=== PATIENT | male | born 1945 | race Caucasian/White ===

== ENCOUNTER 2021-07-31 17:03 | Inpatient (IN) ==
--- NOTE | 2021-07-31 17:41 | XRay Report ---
XR chest 1V portable HISTORY: Atypical Chest Pain COMPARISON: Chest 01/01/2011. FINDINGS: No pneumothorax. No pleural effusions. The heart is unenlarged. There is a left-sided pacem carola/defibrillator. There are poststernotomy changes. Mild interstitial thickening within the mid to lower lung zones. The upper lung zones are clear. IMPRESSION: Cardiomegaly with mild interstitial thickening within the mid to lower lung zones. This favors develo ping congestive change. ACT 112: Negative or not required by law. Electronically signed by: Narciso Denton M.D. 07/31/2021 5:40 PM
[2021-07-31 17:51] LABS: INR 1.1 (0.9-1.1); Partial Thromboplastin Time 27.3 Seconds (21.0-31.0); Prothrombin Time 11.4 Seconds (9.0-12.0)
[2021-07-31] MEDS ORDERED: SODIUM CHLORIDE 0.9% 1000ML 1,000 ML IV STA ×2 (17:54→18:59)
[2021-07-31] MEDS ORDERED: dilTIAZem HCl 5 MG/ML 5 ML VIAL IV STA (17:54)
[2021-07-31] MEDS ORDERED: STAT IV Infusion **Titration per Protocol STA (17:54)
[2021-07-31] MEDS ORDERED: SODIUM CHLORIDE 0.9% 1000ML 500 ML IV ONE ×3 (17:54→22:02)
--- NOTE | 2021-07-31 17:58 | Emergency Department Note ---
Impression & Plan Atrial fibrillation with rapid ventricular response, CHF (congestive heart failure), DAMON (acute kidney injury), Hyperkalemia, Elevated troponin ED Provider Note INFORMANT: Patient ED PROVIDER(S): Reggie Concepcion MD CHIEF COMPLAINT: Chest pain PLAN: Disposition: Admitted Condition: Guarded Outpatient prescription management: none Referral: None MEDICAL DECISION MAKING: Patient presented complaining of chest pain. His ECG showed atrial fibrillation with rapid response. He had a nonspecific block present. 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 The patient had blood work obtained. He was given a saline bolus as his blood pressure was marginal and he was given Cardizem by a small bolus and drip. Patient was found to have a mildly elevated troponin. The patient's labs also revealed dehydration and DAMON. He had hyperkalemia. This was confirmed on repeat. The patient did have control of the heart rate and his chest pain resolved with this. I believe his elevated troponin was from rate related ischemia. The patient was ordered calcium, insulin, dextrose, and bicarb to help with the hyperkalemia. I did consult with nephrology, Dr. sanchez. She felt if we can get his potassium below 6 that he could stay here. Additional fluids were ordered. Patient was given an additional dose of insulin and dextrose. She recommended Kayexalate. Repeat potassium revealed improvement down to 5.9. Additional therapy will continue in the hospital. Consultation was made with Dr. Dwayne Thayer of the [facility] service. Patient was evaluated in the ER for further management. Triage Nursing notes reviewed and agree them. Vital Signs: reviewed and remarkable for significant tachycardia Differential diagnosis: ACS, Electrolyte abnormality, cardiac dysrhythmia, thyroid dysfunction, pulmonary embolism, infection, gastrointestinal, as well as other pathologies. Diagnostics interpreted by me: ECG:twelve-lead ECG reveals atrial fibrillation with rapid ventricular response at 138 bpm. There is nonspecific intraventricular conduction block present. When compared to ECG of 2011 the atrial fibrillation is new. Cardiac Monitoring: Cardiac monitoring ordered by me: The patient was placed on continuous cardiac monitoring and observed. It revealed atrial fibrillation at 140 bpm. Imaging studies: Chest x-ray shows some mild cardiomegaly and congestive change. I refer you to the EMR for further details. HPI: The patient is a 76 year old male who presents to the Emergency Room with complaints of chest pain. This started three weeks ago and is intermittent . The patient also notes the following associated symptoms, SOB. The patient has taken no medications for relieving factors. Current pain is rated as 7/10. Hx of CAD and atrial fibrillation. Pt denies LOC, headache, fevers, chills, diaphoresis, visual changes, neck pain, nausea, vomiting, abdominal pain, back pain, melena, hematochezia, urinary symptoms, numbness, weakness, lymphadenopathy, rash, or other complaints. ROS: See above HPI for pertinent positives & negatives. A total of 10 systems reviewed and were otherwise negative. PAST MEDICAL HISTORY:See Below , CAD, eye cancer, leukemia PAST SURGICAL HISTORY:See Below, FAMILY HISTORY:See Below SOCIAL HISTORY:See Below, retired HOME MEDICATIONS:See Below ALLERGIES:See Below VITALS:See Below PHYSICAL EXAMINATION: GENERAL: Awake, alert, uncomfortable-appearing, in no distress HENT: Normocephalic, atraumatic. Oropharynx unremarkable. EYES: Pale conjunctiva. Sclera non-icteric. NECK: Inspection normal. Non-tender. Supple. No nuchal rigidity. FROM. No masses. RESPIRATORY: Clear to auscultation. No wheezes. No rales. Normal respiratory effort. CARDIAC: Tachycardic rate. Irregular rhythm. No murmurs. No rubs. Extremities warm and well perfused. Pulses equal. No JVD. GI: Soft, non-distended. No tenderness to palpation. No rebound or guarding. No masses. RECTAL: Deferred. MUSCULOSKELETAL: Atraumatic. Chest examination reveals no tenderness. The back is symmetrical on inspection without obvious abnormality. There is no CVA tenderness to palpation. No joint edema. LOWER EXTREMITIES: Calves are equal size bilaterally and non-tender. No edema. No discoloration. NEURO: Normal sensorium. No sensory or motor deficits noted. SKIN: No rash or jaundice noted. CRITICAL CARE: I have personally spent greater than 50 minutes of critical care time in the direct management of this patient. This includes bedside care, interpretation of diagnostic studies, and testing, discussion with consultants, patient, and family members, and other required patient management activities. These minutes are in excess of all separately billable procedures. Reggie Concepcion MD Past Med/Surg History Medical History (Updated 08/01/21 @ 00:51 by Ida Griggs DO) CAD (coronary artery disease) CHF (congestive heart failure) Depression Surgical History History of coronary artery bypass graft Social History Smoking Status: Former smoker Tobacco Type: Cigarettes Preferred Language: Ugand[place] Feels Safe at Home: Yes Allergies Allergies Allergy/AdvReac Type Severity Reaction Status Date / Time No Known Allergies Allergy Verified 07/31/21 18:10 Home Meds Home Medications Medication Instructions Recorded Confirmed atorvastatin 40 mg tablet 40 mg PO HS 07/31/21 07/31/21 escitalopram oxalate 20 mg tablet 20 mg PO DAILY 07/31/21 07/31/21 (Lexapro) furosemide 40 mg tablet 40 mg PO DAILY 07/31/21 07/31/21 insulin degludec 100 unit/mL (3 8 unit SUBCUT HS 07/31/21 07/31/21 mL) subcutaneous pen (Tresiba FlexTouch U-100 insulin) levothyroxine 75 mcg tablet 75 mcg PO DAILY 07/31/21 07/31/21 (Euthyrox) lisinopril 5 mg tablet 5 mg PO DAILY 07/31/21 07/31/21 mirtazapine 15 mg tablet 15 mg PO HS 07/31/21 07/31/21 ropinirole 1 mg tablet 1 mg PO HS 07/31/21 07/31/21 spironolactone 25 mg tablet 25 mg PO DAILY 07/31/21 07/31/21 tramadol 50 mg tablet 50 mg PO DIRECTED PRN 07/31/21 07/31/21 vismodegib 150 mg capsule 150 mg PO DAILY 07/31/21 07/31/21 (Erivedge) Results & Data (ED) Vital Signs Vital Signs - 24 hr 07/31/21 17:07 07/31/21 17:33 07/31/21 18:01 Temperature 36.2 C L Temperature Source Temporal Artery Scan Pulse Rate 66 144 H Pulse Rate [Apical] 143 H Pulse Rate from SpO2 Sensor 142 H Respiratory Rate 16 18 23 Respiratory Pattern Regular Blood Pressure 93/66 L Blood Pressure [Left Arm] 106/65 Blood Pressure Mean 75 Blood Pressure Mean [Left Arm] 78 Blood Pressure Position [Left Arm] Semi-fowlers Pulse Oximetry 96 96 95 Oxygen Delivery Method Room Air Room Air Sepsis Recent Fever Within 48 Hours No Sepsis New/Unexplained Change in Mental Status No Sepsis Action Taken by Nursing No Action Required 07/31/21 18:02 07/31/21 18:10 07/31/21 18:20 Temperature Temperature Source Pulse Rate 107 H 93 H Pulse Rate [Apical] 140 H Pulse Rate from SpO2 Sensor 107 H 92 H Respiratory Rate 18 24 17 Respiratory Pattern Blood Pressure Blood Pressure [Left Arm] 101/62 Blood Pressure Mean Blood Pressure Mean [Left Arm] 75 Blood Pressure Position [Left Arm] Pulse Oximetry 100 97 99 Oxygen Delivery Method Room Air Sepsis Recent Fever Within 48 Hours Sepsis New/Unexplained Change in Mental Status Sepsis Action Taken by Nursing 07/31/21 18:22 07/31/21 18:30 07/31/21 18:40 Temperature Temperature Source Pulse Rate 107 H 87 Pulse Rate [Apical] 90 Pulse Rate from SpO2 Sensor 101 H 103 H Respiratory Rate 18 21 22 Respiratory Pattern Blood Pressure Blood Pressure [Left Arm] Blood Pressure Mean Blood Pressure Mean [Left Arm] Blood Pressure Position [Left Arm] Pulse Oximetry 98 98 97 Oxygen Delivery Method Room Air Room Air Sepsis Recent Fever Within 48 Hours Sepsis New/Unexplained Change in Mental Status Sepsis Action Taken by Nursing 07/31/21 18:50 07/31/21 19:00 07/31/21 19:10 Temperature Temperature Source Pulse Rate 90 97 H 111 H Pulse Rate [Apical] Pulse Rate from SpO2 Sensor 99 H 110 H 96 H Respiratory Rate 20 18 17 Respiratory Pattern Blood Pressure Blood Pressure [Left Arm] Blood Pressure Mean Blood Pressure Mean [Left Arm] Blood Pressure Position [Left Arm] Pulse Oximetry 97 99 98 Oxygen Delivery Method Sepsis Recent Fever Within 48 Hours Sepsis New/Unexplained Change in Mental Status Sepsis Action Taken by Nursing 07/31/21 19:20 07/31/21 19:30 07/31/21 19:40 Temperature Temperature Source Pulse Rate 116 H 122 H 96 H Pulse Rate [Apical] Pulse Rate from SpO2 Sensor 126 H 148 H Respiratory Rate 22 20 20 Respiratory Pattern Blood Pressure 104/74 Blood Pressure [Left Arm] Blood Pressure Mean 84 Blood Pressure Mean [Left Arm] Blood Pressure Position [Left Arm] Pulse Oximetry 98 98 99 Oxygen Delivery Method Sepsis Recent Fever Within 48 Hours Sepsis New/Unexplained Change in Mental Status Sepsis Action Taken by Nursing 07/31/21 19:50 07/31/21 20:00 07/31/21 20:10 Temperature Temperature Source Pulse Rate 101 H 98 H 98 H Pulse Rate [Apical] Pulse Rate from SpO2 Sensor 97 H 106 H 103 H Respiratory Rate 20 18 20 Respiratory Pattern Blood Pressure Blood Pressure [Left Arm] Blood Pressure Mean Blood Pressure Mean [Left Arm] Blood Pressure Position [Left Arm] Pulse Oximetry 100 99 99 Oxygen Delivery Method Room Air Sepsis Recent Fever Within 48 Hours Sepsis New/Unexplained Change in Mental Status Sepsis Action Taken by Nursing 07/31/21 20:20 07/31/21 20:30 07/31/21 20:40 Temperature Temperature Source Pulse Rate 101 H 106 H 107 H Pulse Rate [Apical] Pulse Rate from SpO2 Sensor 107 H 210 H 108 H Respiratory Rate 21 20 18 Respiratory Pattern Blood Pressure 108/66 Blood Pressure [Left Arm] Blood Pressure Mean 80 Blood Pressure Mean [Left Arm] Blood Pressure Position [Left Arm] Pulse Oximetry 98 99 91 Oxygen Delivery Method Room Air Sepsis Recent Fever Within 48 Hours Sepsis New/Unexplained Change in Mental Status Sepsis Action Taken by Nursing 07/31/21 20:50 07/31/21 21:00 07/31/21 21:10 Temperature Temperature Source Pulse Rate 103 H 90 82 Pulse Rate [Apical] Pulse Rate from SpO2 Sensor Respiratory Rate 18 22 20 Respiratory Pattern Blood Pressure 119/63 Blood Pressure [Left Arm] Blood Pressure Mean 81 Blood Pressure Mean [Left Arm] Blood Pressure Position [Left Arm] Pulse Oximetry Oxygen Delivery Method Sepsis Recent Fever Within 48 Hours Sepsis New/Unexplained Change in Mental Status Sepsis Action Taken by Nursing 07/31/21 21:20 Temperature Temperature Source Pulse Rate 80 Pulse Rate [Apical] Pulse Rate from SpO2 Sensor Respiratory Rate 17 Respiratory Pattern Blood Pressure Blood Pressure [Left Arm] Blood Pressure Mean Blood Pressure Mean [Left Arm] Blood Pressure Position [Left Arm] Pulse Oximetry Oxygen Delivery Method Sepsis Recent Fever Within 48 Hours Sepsis New/Unexplained Change in Mental Status Sepsis Action Taken by Nursing Laboratory Data Result diagrams: 07/31/21 17:21 07/31/21 19:42 Lab Results 07/31/21 07/31/21 07/31/21 Range/Units 17:21 17:21 17:21 WBC 3.09 L (4.8-10.8) K/uL RBC 2.94 L (4.7-6.1) M/uL Hgb 8.9 L (14.0-18.0) g/dL Hct 28.4 L (42-52) % MCV 96.6 (80-100) fL MCH 30.3 (25-34) pg MCHC 31.3 L (32-36) g/dL RDW Std Deviation 74.4 H (36.4-46.3) fL RDW Coeff of Donn 21.5 H (11.5-14.5) % Plt Count 48 L (130-400) K/uL Immature Gran % (Auto) 1.6 % Neut % (Auto) 58.9 % Lymph % (Auto) 19.1 % Jackson % (Auto) 20.4 % Eos % (Auto) 0.0 % Baso % (Auto) 0.0 % Neut # (Auto) 1.82 (1.4-6.5) K/uL Lymph # (Auto) 0.59 L (1.2-3.4) K/uL Jackson # (Auto) 0.63 H (0.11-0.59) K/uL Eos # (Auto) 0.00 (0-0.5) K/uL Baso # (Auto) 0.00 (0-0.2) K/uL Immature Gran # (Auto) 0.05 H (0.00-0.02) K/uL Platelet Estimate Decreased L (Normal) Poikilocytosis Present Anisocytosis Present Ovalocytes 1+ PT 11.4 (9.0-12.0) Seconds INR 1.1 (0.9-1.1) APTT 27.3 (21.0-31.0) Seconds PTT Ratio 1.0 Sodium 131 L (136-145) mmol/L Potassium 6.9 H* (3.5-5.1) mmol/L Chloride 106 (98-107) mmol/L Carbon Dioxide 19 L (21-32) mmol/L Anion Gap 7.0 (3-11) BUN 65 H (7-18) mg/dl Creatinine 2.05 H (0.6-1.4) mg/dl Est Cr Clr Drug Dosing 29.5 ml/min Est GFR ( Amer) 35.7 ml/min Est GFR (Non-Af Amer) 30.8 ml/min BUN/Creatinine Ratio 31.5 H (10-20) Glucose 153 H (70-99) mg/dl POC Glucose (70-99) mg/dl Calcium 10.2 H (8.5-10.1) mg/dl Total Bilirubin 0.5 (0.2-1) mg/dl AST 35 (15-37) U/L ALT 23 (12-78) U/L Alkaline Phosphatase 98 (45-117) U/L Troponin I 0.106 H* (0-0.045) ng/ml Total Protein 8.8 H (6.4-8.2) gm/dl Albumin 3.9 (3.4-5.0) gm/dl Globulin 4.9 H (2.5-4.0) gm/dl Albumin/Globulin Ratio 0.8 L (0.9-2) COVID-19 Eval Order SARS-CoV-2 (PCR) (Negative) 07/31/21 07/31/21 07/31/21 Range/Units 18:08 19:42 20:34 WBC (4.8-10.8) K/uL RBC (4.7-6.1) M/uL Hgb (14.0-18.0) g/dL Hct (42-52) % MCV (80-100) fL MCH (25-34) pg MCHC (32-36) g/dL RDW Std Deviation (36.4-46.3) fL RDW Coeff of Donn (11.5-14.5) % Plt Count (130-400) K/uL Immature Gran % (Auto) % Neut % (Auto) % Lymph % (Auto) % Jackson % (Auto) % Eos % (Auto) % Baso % (Auto) % Neut # (Auto) (1.4-6.5) K/uL Lymph # (Auto) (1.2-3.4) K/uL Jackson # (Auto) (0.11-0.59) K/uL Eos # (Auto) (0-0.5) K/uL Baso # (Auto) (0-0.2) K/uL Immature Gran # (Auto) (0.00-0.02) K/uL Platelet Estimate (Normal) Poikilocytosis Anisocytosis Ovalocytes PT (9.0-12.0) Seconds INR (0.9-1.1) APTT (21.0-31.0) Seconds PTT Ratio Sodium (136-145) mmol/L Potassium 6.7 H* 5.9 H (3.5-5.1) mmol/L Chloride (98-107) mmol/L Carbon Dioxide (21-32) mmol/L Anion Gap (3-11) BUN (7-18) mg/dl Creatinine (0.6-1.4) mg/dl Est Cr Clr Drug Dosing ml/min Est GFR ( Amer) ml/min Est GFR (Non-Af Amer) ml/min BUN/Creatinine Ratio (10-20) Glucose (70-99) mg/dl POC Glucose 92 (70-99) mg/dl Calcium (8.5-10.1) mg/dl Total Bilirubin (0.2-1) mg/dl AST (15-37) U/L ALT (12-78) U/L Alkaline Phosphatase (45-117) U/L Troponin I (0-0.045) ng/ml Total Protein (6.4-8.2) gm/dl Albumin (3.4-5.0) gm/dl Globulin (2.5-4.0) gm/dl Albumin/Globulin Ratio (0.9-2) COVID-19 Eval Order SARS-CoV-2 (PCR) (Negative) 07/31/21 07/31/21 Range/Units 20:35 20:35 WBC (4.8-10.8) K/uL RBC (4.7-6.1) M/uL Hgb (14.0-18.0) g/dL Hct (42-52) % MCV (80-100) fL MCH (25-34) pg MCHC (32-36) g/dL RDW Std Deviation (36.4-46.3) fL RDW Coeff of Donn (11.5-14.5) % Plt Count (130-400) K/uL Immature Gran % (Auto) % Neut % (Auto) % Lymph % (Auto) % Jackson % (Auto) % Eos % (Auto) % Baso % (Auto) % Neut # (Auto) (1.4-6.5) K/uL Lymph # (Auto) (1.2-3.4) K/uL Jackson # (Auto) (0.11-0.59) K/uL Eos # (Auto) (0-0.5) K/uL Baso # (Auto) (0-0.2) K/uL Immature Gran # (Auto) (0.00-0.02) K/uL Platelet Estimate (Normal) Poikilocytosis Anisocytosis Ovalocytes PT (9.0-12.0) Seconds INR (0.9-1.1) APTT (21.0-31.0) Seconds PTT Ratio Sodium (136-145) mmol/L Potassium (3.5-5.1) mmol/L Chloride (98-107) mmol/L Carbon Dioxide (21-32) mmol/L Anion Gap (3-11) BUN (7-18) mg/dl Creatinine (0.6-1.4) mg/dl Est Cr Clr Drug Dosing ml/min Est GFR ( Amer) ml/min Est GFR (Non-Af Amer) ml/min BUN/Creatinine Ratio (10-20) Glucose (70-99) mg/dl POC Glucose (70-99) mg/dl Calcium (8.5-10.1) mg/dl Total Bilirubin (0.2-1) mg/dl AST (15-37) U/L ALT (12-78) U/L Alkaline Phosphatase (45-117) U/L Troponin I (0-0.045) ng/ml Total Protein (6.4-8.2) gm/dl Albumin (3.4-5.0) gm/dl Globulin (2.5-4.0) gm/dl Albumin/Globulin Ratio (0.9-2) COVID-19 Eval Order Covid19 at [facility] SARS-CoV-2 (PCR) NEGATIVE (Negative) Administered Medications Sodium Chloride (Nss 1000ml) 1,000 mls @ 125 mls/hr IV .Q8H STA Stop: 08/01/21 01:53 Last Admin: 07/31/21 19:47 Dose: 125 mls/hr Documented by: [id number] Discontinued Medications Calcium Gluconate (Calcium Gluconate 10% 10 Ml Vial) 1,000 mg IV NOW STA Stop: 07/31/21 18:44 Last Admin: 07/31/21 19:48 Dose: 1,000 mg Documented by: [id number] Calcium Gluconate (Calcium Gluconate 1000 Mg/60 Ml Nss) Confirm Administered D ose 1,000 mg IV .STK-MED ONE Stop: 07/31/21 19:36 Last Admin: 07/31/21 19:48 Dose: 1,000 mg Documented by: [id number] Dextrose (Dextrose 50% 50 Ml Syringe) 50 ml IV NOW ONE Stop: 07/31/21 18:44 Last Admin: 07/31/21 19:04 Dose: 50 ml Documented by: [id number] Dextrose (Dextrose 50% 50 Ml Syringe) 50 ml IV NOW ONE Stop: 07/31/21 20:20 Last Admin: 07/31/21 20:44 Dose: 50 ml Documented by: [id number] Diltiazem HCl (Diltiazem Hcl 5 Mg/Ml 5 Ml Vial) 10 mg IV NOW STA Stop: 07/31/21 17:55 Last Admin: 07/31/21 18:01 Dose: 10 mg Documented by: [id number] Cosigned by: [id number] Sodium Chloride (Nss 1000ml) 500 mls @ 999 mls/hr IV .Q31M ONE Stop: 07/31/21 18:24 Last Infusion: 07/31/21 18:32 Dose: 0 mls/hr Documented by: [id number] Admin: 07/31/21 18:01 Dose: 999 mls/hr Documented by: [id number] Sodium Chloride (Nss 1000ml) 500 mls @ 999 mls/hr IV .Q31M ONE Stop: 07/31/21 19:29 Last Infusion: 07/31/21 19:31 Dose: 0 mls/hr Documented by: [id number] Admin: 07/31/21 19:00 Dose: 999 mls/hr Documented by: [id number] Sodium Chloride (Nss 1000ml) 1,000 mls @ 125 mls/hr IV .Q8H STA Stop: 08/01/21 02:58 Last Admin: 07/31/21 19:51 Dose: Not Given Documented by: [id number] Insulin Human Regular (Novolin-R Insulin Per Unit Charge) 10 units IV NOW STA Stop: 07/31/21 18:44 Last Admin: 07/31/21 19:05 Dose: 10 units Documented by: [id number] Cosigned by: [id number] Insulin Human Regular (Novolin-R Insulin Per Unit Charge) 10 units IV NOW STA Stop: 07/31/21 20:20 Last Admin: 07/31/21 20:38 Dose: 10 units Documented by: [id number] Cosigned by: [id number] Sodium Bicarbonate (Sodium Bicarb 8.4% Inj 50 Meq/50 Ml Syr) 50 meq IV NOW STA Stop: 07/31/21 18:44 Last Admin: 07/31/21 19:05 Dose: 50 meq Documented by: [id number] Sodium Polystyrene Sulfonate (Sodium Polystyrene Sulfonate 15g/60ml Susp) 30 gm PO NOW STA Stop: 07/31/21 19:01 Last Admin: 07/31/21 19:49 Dose: 30 gm Documented by: [id number] Imaging Data Radiologist's Impression: Chest X-Ray 07/31/21 17:09 XR chest 1V portable HISTORY: Atypical Chest Pain COMPARISON: Chest 01/01/2011. FINDINGS: No pneumothorax. No pleural effusions. The heart is unenlarged. There is a left-sided pacemaker/defibrillator. There are poststernotomy changes. Mild interstitial thickening within the mid to lower lung zones. The upper lung zones are clear. IMPRESSION: Cardiomegaly with mild interstitial thickening within the mid to lower lung zones. This favors developing congestive change. ACT 112: Negative or not required by law. Electronically signed by: Narciso Denton M.D. 07/31/2021 5:40 PM Discharge Plan Visit Data Chief Complaint: Chest Pain Stated Complaint: CHEST PAIN ED Provider: Reggie Concepcion Discharge Problem: Atrial fibrillation with rapid ventricular response, CHF (congestive heart jasmin lure), DAMON (acute kidney injury), Hyperkalemia, Elevated troponin Patient Disposition: Admitted As Inpatient Discharge Instructions Interventions: ED Discharge Assessment Last Done: 08/01/21 00:41
[2021-07-31] MEDS ORDERED: dilTIAZem HCL 125 MG in DEXTROSE 5% 100 ML IV SCH (18:00)
[2021-07-31 18:01] LABS: Albumin Level 3.9 gm/dl (3.4-5.0); BUN Creatinine Ratio 31.5 (10-20); Calcium 10.2 mg/dl (8.5-10.1); Creatinine Clr Calc Pharmacy 29.5 ml/min; Est GFR (African American) 35.7 ml/min; Est GFR (Non-African American) 30.8 ml/min; Potassium 6.9 mmol/L (3.5-5.1)
[2021-07-31 18:05] LABS: Albumin Globulin Ratio 0.8 (0.9-2); Bilirubin,Total 0.5 mg/dl (0.2-1); Globulin 4.9 gm/dl (2.5-4.0); Total Protein 8.8 gm/dl (6.4-8.2); Troponin I 0.106 ng/ml (0-0.045)
[2021-07-31 18:17] LABS: Anisocytosis Present; Hematocrit (blood only) 28.4 % (42-52); Hemoglobin 8.9 g/dL (14.0-18.0); Immature Granulocytes # (auto) 0.05 K/uL (0.00-0.02); Immature Granulocytes % (auto) 1.6 %; Lymphocytes # (auto) 0.59 K/uL (1.2-3.4); Lymphocytes % (auto) 19.1 %; Mean Corpuscular Hemoglobin 30.3 pg (25-34); Mean Corpuscular Hgb Conc 31.3 g/dL (32-36); Mean Corpuscular Volume 96.6 fL (80-100); Monocytes # (auto) 0.63 K/uL (0.11-0.59); Monocytes % (auto) 20.4 %; Neutrophils # (auto) 1.82 K/uL (1.4-6.5); Neutrophils % (auto) 58.9 %; Ovalocytes 1+; Platelet Count 48 K/uL (130-400); Platelet Estimate Decreased (Normal); Poikilocytosis Present; RDW Coefficient of Variation 21.5 % (11.5-14.5); RDW Standard Deviation 74.4 fL (36.4-46.3); Red Blood Count 2.94 M/uL (4.7-6.1); White Blood Count 3.09 K/uL (4.8-10.8)
[2021-07-31] MEDS ORDERED: CALCIUM GLUCONATE 10% 10 ML VIAL IV STA (18:43)
[2021-07-31] MEDS ORDERED: DEXTROSE 50% 50 ML SYRINGE IV ONE ×2 (18:43→20:19)
[2021-07-31] MEDS ORDERED: NovoLIN-R INSULIN PER UNIT CHARGE IV STA ×2 (18:43→20:19)
[2021-07-31] MEDS ORDERED: SODIUM BICARB 8.4% INJ 50 MEQ/50 ML SYR IV STA (18:43)
[2021-07-31] MEDS ORDERED: SODIUM POLYSTYRENE SULFONATE 15G/60ML SUSP PO STA (19:00)
[2021-07-31] MEDS ORDERED: CALCIUM GLUCONATE 1000 MG/60 ML NSS IV ONE (19:35)
--- NOTE | 2021-07-31 21:27 | History & Physical Report ---
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 AFib with RVR, CAD, CHF, chest pain: History of CAD s/p CABG in 2019 per daughter; no records available as patient seeks most of his care through [facility]. Reported to have had AICD placed following CABG, presumed to be secondary to low EF. No Echo on file. Presented with chest pain and in AFib with RVR (HR 140s). Received diltiazem push and gtt with improvement in HR to 80s and complete resolution of chest pain. Patient is not on anticoagulation; has a CHADSVasc score of 5. Unclear history surrounding AFib, will need to obtain records from [facility] and PCP office. Regardless, not started on Heparin gtt due to anemia and severe thrombocytopenia. Elevated troponin to 0.106, no baseline to compare. Will trend troponins. Possible this elevated is due to significantly elevated HR, however cannot rule out ACS. Patient is currently asymptomatic. Echo ordered for AM. Hgb A1c and lipid panel pending. Continue atorvastatin 40mg daily for now. Not on DAPT therapy despite Hx CABG. Will not start now in the setting of anemia and thrombocytopenia. Holding diuretics in the setting of dehydration/DAMON/Hyperkalemia. Low sodium diet ordered. Cardiology consulted given complex cardiac history and presenting complaints. DAMON: Presented with creatinine 2.05; no baseline to compare. BUN/Cr ratio >20; prerenal etiology. NSS total in ER of 2.5L; will defer further fluid for now 2/2 suspected low EF. Holding home diuretics for now pending BMP in the AM as well as Echo. Hold lisinopril as patient's BP is on low side and has prerenal DAMON. Repeat BMP in AM. Hyperkalemia: Presenting K of 6.9; decreased to 5.9 with insulin 10u with D50 amp, bicarb amp, and calcium gluconate 1g x1. Also received dose of Kayexalate at the recommendation of Nephrology. Veltassa ordered as well as repeat insulin 10u with D50 amp; defer further management to day team/Nephrology. Frequent BMP to evaluate for improvement. Pancytopenia: Presented with Hgb 8.9, plts 48, WBC count of 3.09. Unclear etiology. Does have a history of BCC of the eyelid however no other known malignancy. No source of bleeding identified. Hemoccult ordered. Peripheral smear ordered to evaluate for myelodysplastic syndromes. Daily CBC. DM2: Hold Tresiba in favor of basal/bolus insulin. A1c pending. DM2 diet. COPD: History of per patient, not on home O2 therapy. No complaints of SOB this admission. Goal O2 saturation >92% in the setting of possible ACS. Albuterol inhaler as needed for SOB/wheezing. May benefit from daily inhalers; defer to PCP based on PFTs, symptom control. Depression: Patient's in the beginning of June and he has been talking about "wanting to visit and be with her". Continue home escitalopram and Remeron. Hypothyroidism: Continue levothyroxine. Code Status: DNR/DNI, this was confirmed with daughter. FEN: Heart Healthy, DM2, low sodium diet. 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 He reports that this morning shortly after waking he started having left sided chest pain that radiated into the left arm without associated worsening SOB, denied nausea or vomiting, lightheadedness, diaphoresis. He has a history of CABG per daughter by Dr. Cullen in 2019. He has a history of AFib but is not on rate control therapy nor anticoagulation. Per daughter his a few weeks ago, and he has "given up" since then. She reports that he has been more depressed and eating and drinking less. In the ER patient was found to be tachycardic in AFib with RVR. He was started on diltiazem gtt with fairly rapid improvement in his HR to 80s. He also notable had elevated creatinine and elevated potassium to 6.9; interventions including Kayexalate, sodium bicarb, calcium gluconate, insulin with D50, and NSS were instituted with an improvement in K to 5.9. Hospitalist service was consulted for admission. Allergies Allergy/AdvReac Type Severity Reaction Status Date / Time No Known Allergies Allergy Verified 07/31/21 18:10 Home Medications Medication Instructions Recorded Confirmed Type atorvastatin 40 mg tablet 40 mg PO HS 07/31/21 07/31/21 History escitalopram oxalate 20 mg tablet 20 mg PO DAILY 07/31/21 07/31/21 History (Lexapro) furosemide 40 mg tablet 40 mg PO DAILY 07/31/21 07/31/21 History insulin degludec 100 unit/mL (3 8 unit SUBCUT HS 07/31/21 07/31/21 History mL) subcutaneous pen (Tresiba FlexTouch U-100 insulin) levothyroxine 75 mcg tablet 75 mcg PO DAILY 07/31/21 07/31/21 History (Euthyrox) lisinopril 5 mg tablet 5 mg PO DAILY 07/31/21 07/31/21 History mirtazapine 15 mg tablet 15 mg PO HS 07/31/21 07/31/21 History ropinirole 1 mg tablet 1 mg PO HS 07/31/21 07/31/21 History spironolactone 25 mg tablet 25 mg PO DAILY 07/31/21 07/31/21 History tramadol 50 mg tablet 50 mg PO DIRECTED PRN 07/31/21 07/31/21 History vismodegib 150 mg capsule 150 mg PO DAILY 07/31/21 07/31/21 History (Erivedge) Past Med/Surg History Medical History CAD (coronary artery disease) CHF (congestive heart failure) COPD (chronic obstructive pulmonary disease) Depression Leukemia Surgical History History of coronary artery bypass graft Social History Smoking Status: Former smoker Tobacco Type: Cigarettes Cigarettes Per Day: former smoker, 3 packs per day; Smoking End Date: 15 years ago; Second Hand Exposure: Yes; Do You Dip or Chew Tobacco: No; Hx Alcohol Use: No Hx Substance Use: No Preferred Language: Yakut Communication Ability: Effective Lusterer Required: No Beliefs That Will Affect Care: None Current Living Situation: Family Current Living Situation Comment: with daughter Other Information That Helps Us Care for You: No Feels Safe at Home: Yes Safety Concerns: Feels Safe At This Time Assistive Devices: None Review of Systems Review of Systems: All systems reviewed & are unremarkable except as noted in HPI & below Constitutional: no fever, no chills and no malaise Respiratory: no cough and no dyspnea Cardiovascular: + chest pain; no palpitations and no edema Gastrointestinal: no abdominal pain, no constipation and no diarrhea/loose stools Physical Exam Constitutional: WD/WN, vitals as above Eyes: PERRL, conjunctivae normal, anicteric sclerae ENMT: external ear and nose normal, oropharynx normal Neck: normal visual inspection Respiratory: normal respiratory effort, lungs clear to auscultation Cardiovascular: Rate/Rhythm: + irregularly irregular Heart Sounds: no murmur Extremities: no edema Gastrointestinal (Abdomen): normal bowel sounds, soft, nontender, no hepatosplenomegaly Skin: no rashes, warm and dry Neurologic: AAOx3, normal speech. Bilateral UE, LE, and face without sensory or motor deficits. Psychiatric: A+Ox3, euthymic affect Results & Data Results & Data ([facility]) Vital Signs (Past 12 Hours) Vital Signs Temp Pulse Pulse Resp BP BP Pulse Ox 07/31/21 19:50 101 H 20 100 07/31/21 19:40 96 H 20 99 07/31/21 19:30 122 H 20 104/74 98 07/31/21 19:20 116 H 22 98 07/31/21 19:10 111 H 17 98 07/31/21 19:00 97 H 18 99 07/31/21 18:50 90 20 97 07/31/21 18:40 87 22 97 07/31/21 18:30 107 H 21 98 07/31/21 18:22 90 18 98 07/31/21 18:20 93 H 17 99 07/31/21 18:10 107 H 24 97 07/31/21 18:02 140 H 18 101/62 100 07/31/21 18:01 144 H 23 95 07/31/21 17:33 143 H 18 106/65 96 07/31/21 17:07 36.2 C L 66 16 93/66 L 96 Code Status & VTE Plan VTE Prophylaxis Plan VTE Prophylaxis will be ordered: Yes Supervising Physician Co-Signing Physician Notes Attending addendum: I have physically seen this patient, have supervised the medical residents activities, and agree with the H&P unless as otherwise noted. Assessment and Plan: Atrial fibrillation with RVR/elevated troponin/chest pain/CAD/hypertension/CHF- The patient will be admitted to telemetry for serial cardiac enzymes, serial EKG's, cardiac rhythm monitoring and a 2-D echocardiogram with Dopplers. Troponin 0.106 upon admission likely secondary to increased heart rate Hold antiplatelet therapy due to anemia and thrombocytopenia Consult cardiology Coordinate care with [facility] Renal insufficiency- Creatinine 2.05, with unknown baseline received 2.5 L NSS in the ER. No further IV fluids Hold home diuretics Recheck laboratories in a.m. Hyperkalemia- Potassium 6.9 upon admission, with decreased to 5.9 after D50/regular insulin 10 units IV protocol, labile bicarb and calcium gluconate 1 g IV for in the ED Would not give any further Kayexalate No ectopy noted on mending carrier while in the ED Give Veltassa 8.4 mg tonight Repeat laboratories in a.m. Remaining orders and notations as noted Resident Activity Tracking Resident Involvement: Resident Care Provided Care Provided: Adult Hospital Medicine
[2021-08-01] MEDS ORDERED: GLUCAGON FOR INJ 1 MG VIAL SQ PRN (00:49)
[2021-08-01] MEDS ORDERED: DEXTROSE 50% 50 ML SYRINGE IV PRN (00:49)
[2021-08-01] MEDS ORDERED: GLUCOSE 10 TABS/TUBE PO PRN (00:49)
[2021-08-01] MEDS ORDERED: ACETAMINOPHEN 325 MG TAB PO PRN (00:49)
[2021-08-01] MEDS ORDERED: GLUCOSE 40% GEL 15 GM TUBE PO PRN (00:49)
[2021-08-01] MEDS ORDERED: POLYETHYLENE (MIRALAX) 17 GM PACK PO PRN (00:49)
[2021-08-01] MEDS ORDERED: CARBOHYDRATES FOR HYPOGLYCEMIA PO PRN (00:49)
[2021-08-01 01:37] LABS: BUN Creatinine Ratio 36.1 (10-20); Calcium 8.7 mg/dl (8.5-10.1); Creatinine Clr Calc Pharmacy 36.4 ml/min; Est GFR (Non-African American) 39.7 ml/min; Potassium 5.9 mmol/L (3.5-5.1)
[2021-08-01] MEDS ORDERED: ALBUTEROL HFA 8 GM INHALER INH PRN (01:38)
[2021-08-01] MEDS ORDERED: DEXTROSE 50% 50 ML SYRINGE IV STA (01:45)
[2021-08-01 01:46] LABS: Troponin I 1.17 ng/ml (0-0.045)
[2021-08-01] MEDS ORDERED: INSULIN HUMAN REGULAR PER UNIT 10 UNITS in SYRINGE 9.9 ML IV SCH (02:00)
[2021-08-01] MEDS ORDERED: SODIUM CHLORIDE 0.9% 1000ML 1,000 ML IV SCH (02:15)
[2021-08-01] MEDS: PATIROMER CALCIUM SORBITEX 8.4 GM PACK PO SCH (02:19)
[2021-08-01] MEDS: traMADol HCL 50 MG TABLET PO PRN ×2 (04:44→11:53)
[2021-08-01] MEDS ORDERED: DICLOFENAC SOD 1% GEL 100 GM TUBE EXT PRN (05:53)
[2021-08-01] MEDS: LEVOTHYROXINE SODIUM 75 MCG TABLET PO SCH (06:15)
[2021-08-01] MEDS ORDERED: HEPARIN SODIUM/DEXTROSE 25,000 UNITS/500 ML BAG IV SCH (06:45)
[2021-08-01] MEDS ORDERED: ASPIRIN CHEW 324 MG PO STA (06:48)
--- NOTE | 2021-08-01 06:59 | Hospitalist Progress Note ---
Date of Service August 01, 2021 Assessment & Plan (1) NSTEMI (non-ST elevated myocardial infarction): Plan: Adi Louis is a 76 yo male with PMHx significant for CAD (s/p CABG in 04/2020), leukemia (currently on chemotherapy, per patient), HFrEF (on home Lasix, s/p AICD), atrial fibrillation (not on AC or BB), COPD (no home O2, unknown GOLD class), and basal cell carcinoma of the left eye (on Erivedge) who was admitted to [facility] on 07/31 for for chest pain; found to have NSTEMI, a-fib with RVR and hyperkalemia. Type II NSTEMI Exertional chest pain for >several hours. EKG with ST depressions and T-wave inversions in inferolateral leads. Troponin peaked at 1.34 this AM. Suspect Type II NSTEMI secondary to a-fib with RVR. - Cardiology consulted - suspects Type II NSTEMI due to a-fib with RVR, stopped Heparin gtt - gave Aspirin 324mg x1 and started Heparin gtt without bolus which was stopped this AM, as stated above - no further Aspirin given thrombocytopenia - continue home Atorvastatin 40mg PO QHS - hold home Lisinopril (DAMON) - s/p Dilt gtt for a-fib RVR (see below) and is NSR 80s; transitioned to Amio as stated below CAD; HFrEF; S/p AICD. Is s/p CABG ~1 year ago, with HFrEF. TTE this morning with EF 25%, severe LV dysfunction, LV akinesis/hypokinesis, Type III diastolic dysfunction, RVSP 50- 55mmHg. - hold Lasix and Spironolactone for now as patient presented hypovolemic - Cholesterol 72, LDL 36, HDL 20 - continue Atorvastatin as stated above but lipid profile will need to be repeat in 2-3 months, with decreased dose recommended if LDL persistently <40 Atrial Fibrillation with RVR, RVR resolved Past history of a-fib per patient's daughter, although not on home BB or AC. Presented in a-fib RVR but this has resolved, and patient back in NSR, s/p Diltiazem gtt. Suspect this led to elevated Troponin - CHADS-VASc score of 5 - Cardiology on board as stated above - transitioned to Amiodarone 200mg PO BID for now - defer BB for now as stated above - likely requires long-term anti-coagulation; will defer to Cardiology - also will try to include patient's Oncologist in this discussion (Dr. Eb Hernandez in [place]; [phone]) Acute Normocytic Anemia; Pancytopenia; Leukemia Hgb 8.9 --> 7.2 today with no signs of active bleeding. Plts 48 --> 42. WBC <3 with severe neutropenia. Suspect acute worsening of anemia is due to hemodi lution. 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 - will transfuse 1 unit leukored/irrad pRBCs now, with another unit on hold - repeat H/H following transfusion - hold on platelet transfusion for now given no active bleed and count >10,000 - patient follows with Dr. Hernandez in [place]; reportedly gets "shots" of chemotherapy every few weeks but unsure what the treatment is - also gets periodic "blood transfusions" for "low counts" but unsure when last one was - would be ideal to get records to confirm type of leukemia and chemotherapy - peripheral smear pending - trend CBC daily - ordered neutropenic precautions Hyperkalemia; DAMON, resolving Suspect acute hyperkalemia in setting of DAMON. Suspect root cause is pre-renal injury due to poor forward flow in setting of a-fib RVR. K improved from 6.9 --> 5.4 s/p bicarb, D5/insulin, kayexalate. Cr improved from 2.05 --> 1.47 s/p several IVF boluses and control of HR. - K 5.4 --> 6.2 after 1 unit pRBCs - will give NSS 500cc @125cc/hr and re-check BMP tonight - give cautious 250cc IVF NSS bolus for K>6.0, and/or SBP <90 - Nephro consulted - appreciate recs - started on Patiromer - will continue for now - will hold on mIVFs for now given NSTEMI and unknown CHF history - held Lasix/Spironolactone as stated above - follow BMP daily LLE Cramping Patient reports several days of this. No h/o DVT. No recent extended travel time. Negative Mariella sign on exam. - will more definitively r/o with LLE venous duplex - pending T2DM History of such, with unknown last A1c. - continue SSI + basal bolus insulin while hospitalized - A1c pending COPD History of such. 120 pack year smoking history (quit12 years ago). Unknown GOLD class or previous PFTs but not on home O2 therapy. - Albuterol inhaler PRN SOB/wheezing. - Would likely benefit from daily inhalers; defer to PCP based on PFTs and symptom control Depression Patient's in the beginning of June and he has been talking about "wanting to visit and be with her". - continue home escitalopram and Remeron. Hypothyroidism Continue levothyroxine. Basal Cell Carcinoma - patient will use his own Erivedge Code Status: DNR/DNI FEN: Heart-healthy/DM2/low-sodium diet DVT ppx: SCDs, hold chemoppx for now given profound thrombocytopenia Dispo: PCU with tele (2) Atrial fibrillation with rapid ventricular response: (3) Acute on chronic anemia: (4) CAD (coronary artery disease): (5) Depression: (6) CHF (congestive heart failure): (7) DAMON (acute kidney injury): (8) Hyperkalemia: (9) Leukemia: (10) COPD (chronic obstructive pulmonary disease): Admission and Anticipated Discharge Date Admission Date: July 31, 2021 Supervising Physician Co-Signing Physician Notes I personally examined the patient and verified all wyman points of history and exam, discussed case, and agree with decision making with Dr Briseno Feeling better. No palpitations or heart racing. No chest pain or shortness of breath. Case discussed with cardiology. Consultants input appreciated. Vitals noted, in general he is awake and alert pleasant no distress fatigued appearing. HEENT normocephalic atraumatic mucous membranes moist. Breathing unlabored no accessory muscle use good effort. Skin shows no rashes no pallor or icterus. Neuro without focal deficits. A. fib with RVR precipitating type II DE due to demand ischemia, complicated by pancytopenia from leukemia, and DAMON that is improving. Continue current care, improving. Hopefully home soon. Continue to manage hyperkalemia Subjective Chest pain resolved yesterday evening. Weaned off of Dilt gtt for several hours with NSR 80s. This morning patient reports palpitations/tachycardia for the last several days, which preceded his bout of chest pain yesterday. He is unsure if he was ever diagnosed with an abnormal heart rhythm/a-fib. Confirms that the chest pain was left-sided, radiated down left arm, with associated diaphoresis, started with exertion, and lasted throughout the day yesterday. Patient also reports h/o "leukemia"; cannot say which type but does follow with Dr. Eb Hernandez in [place], [place], and gets "shots" as treatment every couple weeks, with occasional blood transfusions when his "levels are low". Reports 3ppd smoking history x40 years; quit 12 years ago. Denies alcohol use or other drug use. Denies current chest pain/palpitations. Denies fever/chills, headache, syncope/near-syncope, N/V, abdominal pain, rash. Review of Systems Review of Systems: All systems reviewed & are unremarkable except as noted in HPI & below Physical Exam Physical Exam: General: A&Ox3. NAD. Cooperative. HEENT: Atraumatic, normocephalic. Pulm: CTAB A&P. -wheezes, -rales, -rhonchi. Symmetrical chest rise. No increase work of breathing. No respiratory distress. Cardiac: RRR, -mrg. Radial pulses intact and symmetrical. No JVD. No LE edema. Chest: no pain with palpation of chest wall Abdominal: soft, non-tender, non-distended, BS x 4 Skin: warm, dry, no rash Results & Data Results & Data ([facility]) Vital Signs (Past 12 Hours) Vital Signs Temp Pulse Pulse Resp BP BP Pulse Ox 08/01/21 05:18 88 117/61 98 08/01/21 03:21 86 105/56 L 08/01/21 02:50 36.6 C 91 H 97 H 20 123/66 100 08/01/21 00:42 87 101/50 L 94 07/31/21 23:00 93 H 20 07/31/21 22:50 84 18 07/31/21 22:40 82 18 98 07/31/21 22:30 91 H 21 124/65 97 07/31/21 22:20 79 18 98 07/31/21 22:10 83 20 98 07/31/21 22:00 83 21 108/56 L 07/31/21 21:50 85 22 98 07/31/21 21:40 80 23 07/31/21 21:30 80 19 104/52 L 07/31/21 21:20 80 17 07/31/21 21:10 82 20 07/31/21 21:00 90 22 119/63 07/31/21 20:50 103 H 18 07/31/21 20:40 107 H 18 91 07/31/21 20:30 106 H 20 108/66 99 07/31/21 20:20 101 H 21 98 07/31/21 20:10 98 H 20 99 07/31/21 20:00 98 H 18 99 07/31/21 19:50 101 H 20 100 07/31/21 19:40 96 H 20 99 07/31/21 19:30 122 H 20 104/74 98 07/31/21 19:20 116 H 22 98 07/31/21 19:10 111 H 17 98 07/31/21 19:00 97 H 18 99 Resident Activity Tracking Resident Involvement: Resident Care Provided Care Provided: Adult [facility] Medicine
[2021-08-01] MEDS: INSULIN ASPART 100 UNITS/ML 3 ML PEN SC SCH ×4 (08:00→22:03)
[2021-08-01] MEDS: ESCITALOPRAM OXALATE 20 MG TAB PO SCH (08:17)
[2021-08-01 08:23] LABS: Hematocrit (blood only) 23.2 % (42-52); Hemoglobin 7.2 g/dL (14.0-18.0); Mean Corpuscular Hemoglobin 30.4 pg (25-34); Mean Corpuscular Volume 97.9 fL (80-100); RDW Coefficient of Variation 21.7 % (11.5-14.5); Red Blood Count 2.37 M/uL (4.7-6.1); White Blood Count 2.21 K/uL (4.8-10.8)
[2021-08-01 08:29] LABS: Platelet Count 43 K/uL (130-400)
[2021-08-01] MEDS ORDERED: SODIUM CHLORIDE 0.9% 250 ML IV PRN (08:29)
[2021-08-01 08:32] LABS: BUN Creatinine Ratio 34.6 (10-20); Calcium 9.1 mg/dl (8.5-10.1); Creatinine Clr Calc Pharmacy 39.7 ml/min; Est GFR (African American) 53.3 ml/min; Potassium 5.4 mmol/L (3.5-5.1)
[2021-08-01 09:00] LABS: Anisocytosis Present; Echinocytes 1+; Immature Granulocytes # (auto) 0.09 K/uL (0.00-0.02); Immature Granulocytes % (auto) 4.1 %; Lymphocytes # (auto) 0.69 K/uL (1.2-3.4); Lymphocytes % (auto) 31.2 %; Monocytes # (auto) 0.62 K/uL (0.11-0.59); Monocytes % (auto) 28.1 %; Neutrophils # (auto) 0.81 K/uL (1.4-6.5); Neutrophils % (auto) 36.6 %; Ovalocytes 1+; Platelet Estimate Decreased (Normal)
[2021-08-01] MEDS ORDERED: INSULIN GLARGINE SOLOSTAR 100 UNITS/ML 3 ML PEN SC SCH (09:00)
[2021-08-01] MEDS: Heparin IV Adult Wt-Based Low-Dose *NO* Bolus Protocol IV SCH ×3 (09:19→16:27)
--- NOTE | 2021-08-01 09:59 | Electrocardiogram Report ---
Test Reason : Blood Pressure : / mmHG Vent. Rate : 138 BPM Atrial Rate : 068 BPM P-R Int : 000 ms QRS Dur : 168 ms QT Int : 386 ms P-R-T Axes : 000 246 065 degrees QTc Int : 584 ms Poor data quality, interpretation may be adversely affected Atrial fibrillation with rapid ventricular response Right superior axis deviation Non-specific intra-ventricular conduction block Abnormal ECG When compared with ECG of 31-DEC-2010 16:07, Atrial fibrillation has replaced Sinus rhythm Vent. rate has increased BY 77 BPM Non-specific intra-ventricular conduction delay is new Confirmed by Clint Curry ([id number]) on 08/01/2021 9:58:36 AM Referred By: REFERRED SELF Confirmed By:Clint Curry
--- NOTE | 2021-08-01 10:01 | Electrocardiogram Report ---
Test Reason : Blood Pressure : / mmHG Vent. Rate : 137 BPM Atrial Rate : 087 BPM P-R Int : 000 ms QRS Dur : 170 ms QT Int : 388 ms P-R-T Axes : 000 250 072 degrees QTc Int : 585 ms Poor data quality, interpretation may be adversely affected Atrial fibrillation with RVR Right superior axis deviation Non-specific intra-ventricular conduction block Abnormal ECG When compared with ECG of 31-JUL-2021 17:09, (unconfirmed) No significant change was found Confirmed by Clint Curry ([id number]) on 08/01/2021 10:00:27 AM Referred By: REFERRED SELF Confirmed By:Clint Curry
--- NOTE | 2021-08-01 11:06 | Cardiology Consultation ---
Date of Consultation August 01, 2021 History of Present Illness Reason for Consultation: Non-ST elevation myocardial infarction, paroxysmal atrial fibrillation with aberrancy Attending Physician: Valerio Pascal DO History of Present Illness Patient is admitted with A. fib with RVR and very symptomatic palpitations and chest discomfort that radiates down his left arm. He notes since his bypass surgery in 2019 he has had at least 3 episodes of A. fib. He is not able to walk very far as he has significant claudication in his legs and actually describes resting claudication to the point that he needs to have his leg off the side of his bed at night in order to reduce his discomfort. He also has a very loud bruit on the left notes that he was told he needed carotid surgery but this has been on hold due to his thrombocytopenia. He denies any lightheadedness or dizziness this morning he denies any palpitations. He has no current chest discomfort. He has significant bruising. He is not on anticoagulation due to his thrombocytopenia and easy bruising. He looks significantly ill. The rest of a complete her systems otherwise negative Allergies Allergy/AdvReac Type Severity Reaction Status Date / Time No Known Allergies Allergy Verified 07/31/21 18:10 Home Medications Medication Instructions Recorded Confirmed Type atorvastatin 40 mg tablet 40 mg PO HS 07/31/21 07/31/21 History escitalopram oxalate 20 mg tablet 20 mg PO DAILY 07/31/21 07/31/21 History (Lexapro) furosemide 40 mg tablet 40 mg PO DAILY 07/31/21 07/31/21 History insulin degludec 100 unit/mL (3 8 unit SUBCUT HS 07/31/21 07/31/21 History mL) subcutaneous pen (Tresiba FlexTouch U-100 insulin) levothyroxine 75 mcg tablet 75 mcg PO DAILY 07/31/21 07/31/21 History (Euthyrox) lisinopril 5 mg tablet 5 mg PO DAILY 07/31/21 07/31/21 History mirtazapine 15 mg tablet 15 mg PO HS 07/31/21 07/31/21 History ropinirole 1 mg tablet 1 mg PO HS 07/31/21 07/31/21 History spironolactone 25 mg tablet 25 mg PO DAILY 07/31/21 07/31/21 History tramadol 50 mg tablet 50 mg PO DIRECTED PRN 07/31/21 07/31/21 History vismodegib 150 mg capsule 150 mg PO DAILY 07/31/21 07/31/21 History (Erivedge) Patient History Medical History CAD (coronary artery disease) CHF (congestive heart failure) COPD (chronic obstructive pulmonary disease) Depression Leukemia Surgical History History of coronary artery bypass graft Social History Smoking Status: Former smoker Tobacco Type: Cigarettes Cigarettes Per Day: former smoker, 3 packs per day; Smoking End Date: 15 years ago; Second Hand Exposure: Yes; Do You Dip or Chew Tobacco: No; Hx Alcohol Use: No Hx Substance Use: No Preferred Language: Burundian Communication Ability: Effective Sales Store Checker Required: No Beliefs That Will Affect Care: None Current Living Situation: Family Current Living Situation Comment: with daughter Other Information That Helps Us Care for You: No Feels Safe at Home: Yes Safety Concerns: Feels Safe At This Time Assistive Devices: None Results & Data ([facility]) Vital Signs (Past 12 Hours) Vital Signs Temp Pulse Pulse Resp BP Pulse Ox 08/01/21 08:04 36.3 C L 87 20 108/62 98 08/01/21 08:00 86 08/01/21 05:18 88 117/61 98 08/01/21 03:21 86 105/56 L 08/01/21 02:50 36.6 C 91 H 97 H 20 123/66 100 08/01/21 00:42 87 101/50 L 94 he is awake alert and oriented x3 he looks chronically ill and quite thin and cachectic HEENT: Severely reduced carotid upstrokes on the right I did not palpate left as he has a very loud bruit Lungs: Globally decreased breath sounds no rhonchi or wheezing or rales Heart: Regular rate and rhythm, his heart sounds were distant, there were no appreciable murmurs Abdomen: Soft nontender nondistended positive bowel sounds Extremities: No clubbing cyanosis or edema of note it sounds like he has symptoms of resting claudication Psychiatric: His affect appeared appropriate His EKGs were reviewed in detail His laboratory studies were reviewed in detail His echocardiogram was reviewed IMPRESSIONS: (1) Atrial fibrillation with rapid ventricular response: (2) CAD (coronary artery disease): (3) Depression: (4) CHF (congestive heart failure) With a severe ischemic cardiomyopathy (5) non-ST ovation myocardial infarction: (6) Hyperkalemia: 7 s/p CABG (April 2020) 8. No anticoagulation secondary to profound thrombocytopenia, 9. Basal cell carcinoma of the left eye on Erivedge 10. Hyperkalemia and suspected DAMON. 11. Dual-chamber defibrillator Given all of his comorbidities and his profound thrombocytopenia and anemia and now neutropenia he is not a candidate for any kind of intervention. I would stop his heparin as the risk of heparin outweighs the benefit at this point given his thrombocytopenia. His troponin is elevated secondary to demand i schemia from his atrial fibrillation with a rapid ventricular response. Given how frail he is in the fact that he will not tolerate A. fib very well I recommended starting amiodarone 200 mg twice daily. In reviewing his chest x-ray it appears he has a dual-chamber defibrillator. Therefore we should not need to worry about excessive bradycardia associated with amiodarone. If there is room from a blood pressure standpoint he should also be on low-dose Toprol-XL. Given his acute kidney injury and hyperkalemia I would hold his lisinopril. He is to receive blood and I would recommend keeping his hemoglobin greater than 8. I would transfuse him very slowly ultimately he may need diuretics with his blood transfusion. We need to obtain his outside cardiology records as he previously was followed in [place] and is now followed in [place]. We are awaiting interrogation his device to confirm his settings. At this point with this thrombocytopenia there is no room for even aspirin th erapy. I did look at his echocardiogram he has severe severe LV dysfunction the inferior wall is akinetic anterior wall was significantly hypokinetic. In addition he had at least moderate mitral regurgitation. We will continue to follow him with you.
[2021-08-01] MEDS: AMIODARONE 200 MG TAB PO SCH ×2 (12:21→17:16)
--- NOTE | 2021-08-01 12:22 | Nephrology Consultation ---
Date of Consultation August 01, 2021 Assessment & Plan (1) DAMON (acute kidney injury): (2) Hyperkalemia: (3) Atrial fibrillation with rapid ventricular response: (4) NSTEMI (non-ST elevated myocardial infarction): (5) Acute on chronic anemia: 76-year-old male with coronary artery disease, AFib admitted with AFib with RVR. On admission he was found to have DAMON and hyperkalemia with no prior CKD or baseline lab value available. Was on low-dose lisinopril but not on potassium supplement. AK most likely hemodynamically mediated in the setting of AFib with RVR and relatively low blood pressure with decreased forward flow. Potassium improved to 5.4 this morning, renal function already started to improve with IV hydration and control of heart rate, creatinine down to 1.5. Has been voiding normally. --Although no urinalysis or renal ultrasound done, as renal function already st arted to improve, electrolyte improving, no indication for those at this time. Expect renal function to continue to improve with improved HR and blood pressure. --Continue to hold lisinopril for now eventually can be started on low-dose if blood pressure stable and potassium normalized. --Encourage increased p.o. intake to maintain hydration, Continue to hold diuretic at this time. Will follow. Thank you for allowing me to participate in your patient's care. It was a pleasure to see Adi. History of Present Illness Reason for Consultation: Hyperkalemia and acute kidney injury. Attending Physician: Valerio Pascal DO History of Present Illness Mr. Adi Louis is a 76 yo M with PMH significant for CAD, A fib, COPD admitted to the hospital with chest pain, AFib with RVR. Nephrology consult was requested for management of hyperkalemia and acute kidney injury. EMR records are reviewed in detail during patient's visit. Adi presented to ER yesterday with chest pain and palpitation and found to be in AFib with RVR. She has history of AFib but has not been on anticoagulation or beta-marcos because of relatively low blood pressure, anemia and thrombocytopenia. He was initially given IV diltiazem which improved the heart rate and clinically he was otherwise stable with relatively low blood pressure. Lab showed potassium was 6.9 and creatinine 2.1 with no baseline available but no known history of CKD. Did not have any urinalysis or renal ultrasound. He reports voiding normally at home, has been eating and drinking okay. he was on lisinopril 5 mg daily at home but was not taking any potassium supplement. Denied taking NSAIDs at home regularly. He did report 1 episode of diarrhea yesterday But no nausea, vomiting or abdominal pain. He was clinically thought to be volume depleted. Kayexalate, sodium bicarb, calcium gluconate, insulin with D50 weight given with improvement in K to 5.4 this morning. Renal function also improved this morning to creatinine of 1.5. He has been voiding normally since admission. Troponin was elevated up to 1.3 which thought to be due to demand ischemia in the setting of AFib with RVR. Ex-smoker, quit smoking 15 years ago. 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 Currently he lives with his daughter who manages his medications. Has extensive past medical history including CAD s/p CABG in April 2020, CHF with systolic and diastolic dysfunction has dual-chamber AICD. H/o AFib not on AC, COPD, basal cell carcinoma of the left eye on Erivedge, DM2, hypothyroidism. This morning his otherwise feeling better, chest pain resolved, no further palpitation, no shortness of breath. Has been voiding normally, appetite decent. Allergies Allergy/AdvReac Type Severity Reaction Status Date / Time No Known Allergies Allergy Verified 07/31/21 18:10 Home Medications Medication Instructions Recorded Confirmed Type atorvastatin 40 mg tablet 40 mg PO HS 07/31/21 07/31/21 History escitalopram oxalate 20 mg tablet 20 mg PO DAILY 07/31/21 07/31/21 History (Lexapro) furosemide 40 mg tablet 40 mg PO DAILY 07/31/21 07/31/21 History insulin degludec 100 unit/mL (3 8 unit SUBCUT HS 07/31/21 07/31/21 History mL) subcutaneous pen (Tresiba FlexTouch U-100 insulin) levothyroxine 75 mcg tablet 75 mcg PO DAILY 07/31/21 07/31/21 History (Euthyrox) lisinopril 5 mg tablet 5 mg PO DAILY 07/31/21 07/31/21 History mirtazapine 15 mg tablet 15 mg PO HS 07/31/21 07/31/21 History ropinirole 1 mg tablet 1 mg PO HS 07/31/21 07/31/21 History spironolactone 25 mg tablet 25 mg PO DAILY 07/31/21 07/31/21 History tramadol 50 mg tablet 50 mg PO DIRECTED PRN 07/31/21 07/31/21 History vismodegib 150 mg capsule 150 mg PO DAILY 07/31/21 07/31/21 History (Erivedge) Patient History Medical History CAD (coronary artery disease) CHF (congestive heart failure) COPD (chronic obstructive pulmonary disease) Depression Leukemia Surgical History History of coronary artery bypass graft Social History Smoking Status: Former smoker Tobacco Type: Cigarettes Cigarettes Per Day: former smoker, 3 packs per day; Smoking End Date: 15 years ago; Second Hand Exposure: Yes; Do You Dip or Chew Tobacco: No; Hx Alcohol Use: No Hx Substance Use: No Preferred Language: Danish Communication Ability: Effective Dancing Instructor Required: No Beliefs That Will Affect Care: None Current Living Situation: Family Current Living Situation Comment: with daughter Other Information That Helps Us Care for You: No Feels Safe at Home: Yes Safety Concerns: Feels Safe At This Time Assistive Devices: None Review of Systems Review of Systems: Detailed review of system was otherwise unremarkable except mentioned above. Results & Data ([facility]) Vital Signs (Past 12 Hours) Vital Signs Temp Pulse Pulse Resp BP BP Pulse Ox 08/01/21 11:41 36.3 C L 98 H 18 112/58 L 92 08/01/21 08:04 36.3 C L 87 20 108/62 98 08/01/21 08:00 86 08/01/21 05:18 88 117/61 98 08/01/21 03:21 86 105/56 L 08/01/21 02:50 36.6 C 91 H 97 H 20 123/66 100 08/01/21 00:42 87 101/50 L 94 PG Care Time/CCT Total # of Minutes Spent Total Time Spent with Patient: Total time spent is greater than 50% in coordination of care (as documented) at patient's floor/unit and/or counseling patient: Coding Level of Care Code 69786 Initial Inpt Care Lvl 3 Diagnoses DAMON (acute kidney injury) N17.9 Hyperkalemia E87.5 NSTEMI (non-ST elevated myocardial infarction) I21.4 Acute on chronic anemia D64.9 Atrial fibrillation with rapid ventricular response I48.91
[2021-08-01] MEDS: [UNRECOGNIZED DRUG - OTHER] PO SCH (13:09)
[2021-08-01] MEDS ORDERED: HYDROmorphone INJ 0.5 MG/0.5 ML SYR IV PRN (13:52)
[2021-08-01 15:58] LABS: Partial Thromboplastin Ratio 1.1; Partial Thromboplastin Time 28.5 Seconds (21.0-31.0)
[2021-08-01 16:09] LABS: Calcium 8.8 mg/dl (8.5-10.1); Creatinine Clr Calc Pharmacy 38.9 ml/min; Est GFR (Non-African American) 44.9 ml/min
[2021-08-01 16:18] LABS: Potassium 6.2 mmol/L (3.5-5.1)
[2021-08-01 16:28] LABS: Hematocrit (blood only) 25.3 % (42-52); Platelet Count 31 K/uL (130-400); Platelet Estimate Decreased (Normal)
[2021-08-01] MEDS ORDERED: SODIUM CHLORIDE 0.9% 500 ML IV SCH (17:00)
--- NOTE | 2021-08-01 19:26 | Billing Data ---
Date of Service August 01, 2021 Coding Level of Care Code 28256 Subseq Hosp Care Lvl 3
--- NOTE | 2021-08-01 20:56 | Ultrasound Report ---
US venous doppler LE LT CLINICAL HISTORY: eval for DVT COMPARISON: None available at the time of this dictation. TECHNIQUE: Left lower extremity real-time compression venous ultrasound with Color Doppler imaging. Utilizing real-time ultrasonic imaging multiple real time high-resolution ultrasonic images with comp ression and noncompression maneuvers of the deep venous system in addition to color doppler imaging w ere performed from the common femoral vein through the proximal calf veins. FINDINGS: Currently there is normal compressibility of the deep venous system from the common femoral vein thro ugh the proximal calf veins. No current evidence of acute thrombosis is identified. Impression: No evidence of deep venous thrombus. ACT 112: Negative or not required by law. Electronically signed by: Gino Oakley M.D. 08/01/2021 8:55 PM
[2021-08-01] MEDS: ATORVASTATIN 40 MG TAB PO SCH (21:00)
[2021-08-01] MEDS: MIRTAZAPINE TAB 15 MG TAB PO SCH (21:07)
[2021-08-01] MEDS: rOPINIRole HCL 1 MG TABLET PO SCH (21:08)
--- NOTE | 2021-08-01 22:16 | Billing Data ---
Date of Service August 01, 2021 Coding Level of Care Code 36338 Initial Inpt Care Lvl 3
[2021-08-01 22:49] LABS: BUN Creatinine Ratio 30.5 (10-20); Calcium 8.6 mg/dl (8.5-10.1); Creatinine Clr Calc Pharmacy 43.9 ml/min; Est GFR (African American) 60.2 ml/min; Est GFR (Non-African American) 51.9 ml/min
[2021-08-02] MEDS: LEVOTHYROXINE SODIUM 75 MCG TABLET PO SCH (05:56)
[2021-08-02 07:35] LABS: Estimated Average Glucose 151 mg/dl; Hemoglobin A1C 6.9 % (4.5-5.6)
[2021-08-02] MEDS: INSULIN ASPART 100 UNITS/ML 3 ML PEN SC SCH ×4 (08:06→21:29)
[2021-08-02] MEDS: AMIODARONE 200 MG TAB PO SCH ×2 (08:12→16:12)
[2021-08-02] MEDS: PATIROMER CALCIUM SORBITEX 8.4 GM PACK PO SCH (08:13)
[2021-08-02] MEDS: [UNRECOGNIZED DRUG - OTHER] PO SCH (08:13)
--- NOTE | 2021-08-02 08:35 | Cardiology Progress Note ---
Date of Service August 02, 2021 Assessment & Plan (1) Atrial fibrillation with rapid ventricular response: Plan: IMPRESSIONS: (1) Atrial fibrillation with rapid ventricular response: (2) CAD (coronary artery disease): (3) Depression: (4) CHF (congestive heart failure) With a severe ischemic cardiomyopathy (5) non-ST ovation myocardial infarction: (6) Hyperkalemia 7. s/p CABG (April 2020) 8. No anticoagulation secondary to profound thrombocytopenia, 9. Basal cell carcinoma of the left eye on Erivedge 10. Hyperkalemia and suspected DAMON. 11. Dual-chamber defibrillator Mr. Louis is in sinus rhythm today with a rates in the 90s. He is continued on amiodarone 200 mg bid. Due to his comorbidities and his profound thrombocytopenia, anemia and neutropenia, he is not a candidate for any kind of intervention. Heparin and aspirin were stopped. His troponin is elevated secondary to demand ischemia from his atrial fibrillation with a rapid ventricular response. Trop peaked at 1.3 and trended down. He has no complaints of chest pain today. In reviewing his chest x-ray it appears he has a dual-chamber defibrillator. Therefore we should not need to worry about excessive bradycardia associated with amiodarone. There is no room blood pressure-avina for metoprolol at this point. If his bp improves could consider adding a low dose to his regimen. Lisinopril is on hold given hyperkalemia and DAMON. He received a blood transfusion yesterday. Recommend keeping his hemoglobin greater than 8. Diuretics may be necessary depending on how much blood he ends up requiring and how he tolerates. We need to obtain his outside cardiology records as he previously was followed in [place] and is now followed in [place]. We are awaiting interrogation his device to confirm his settings. His echocardiogram shows that he has severe severe LV dysfunction the inferior wall is akinetic anterior wall was significantly hypokinetic. He has pulmonary hypertension. He also has at least moderate mitral regurgitation. Admission and Anticipated Discharge Date Admission Date: July 31, 2021 Subjective Mr. Louis denies any chest pain or sob beyond his baseline with his COPD. He has not had any palpitations or lightheadedness. He did have a spontaneous nose bleed this morning which stopped on it's own. He does not feel any blood running down the back of his throat and it appears to have resolved. His telemetry showed SR overnight. Review of Systems Review of Systems: All systems reviewed & are unremarkable except as noted in HPI & below Physical Exam Constitutional: + cachectic; no acute distress Respiratory: normal respiratory effort and + audible wheezes (faint diffuse bilaterally); no respiratory distress and no retractions Skin: no rashes, warm and dry Neurologic: moves all extremities and awake Psychiatric: A+Ox3, euthymic affect Results & Data ([facility]) Vital Signs (Past 12 Hours) Vital Signs Temp Pulse Resp BP Pulse Ox Pulse Ox 08/02/21 08:19 36.4 C L 120 H 18 139/67 08/02/21 04:38 36.8 C 84 18 96/45 L 97 08/02/21 00:49 95 08/01/21 23:18 36.7 C 79 18 97/53 L 97
[2021-08-02 08:49] LABS: Mean Corpuscular Hgb Conc 30.8 g/dL (32-36)
[2021-08-02 09:19] LABS: Hematocrit (blood only) 26.6 % (42-52); Hemoglobin 8.2 g/dL (14.0-18.0); Mean Corpuscular Hemoglobin 29.6 pg (25-34); RDW Coefficient of Variation 22.1 % (11.5-14.5); RDW Standard Deviation 74.3 fL (36.4-46.3); Red Blood Count 2.77 M/uL (4.7-6.1)
[2021-08-02 09:27] LABS: Albumin Level 3.1 gm/dl (3.4-5.0); BUN Creatinine Ratio 25.7 (10-20); Calcium 8.8 mg/dl (8.5-10.1); Creatinine Clr Calc Pharmacy 45.1 ml/min; Est GFR (African American) 63.6 ml/min; Est GFR (Non-African American) 54.9 ml/min; Magnesium 1.2 mg/dl (1.8-2.4)
[2021-08-02 09:37] LABS: Platelet Count 33 K/uL (130-400)
[2021-08-02 09:38] LABS: Albumin Globulin Ratio 0.7 (0.9-2); Anisocytosis Present; Bilirubin,Total 0.7 mg/dl (0.2-1); Globulin 4.2 gm/dl (2.5-4.0); Immature Granulocytes # (auto) 0.02 K/uL (0.00-0.02); Immature Granulocytes % (auto) 1.3 %; Lymphocytes # (auto) 0.58 K/uL (1.2-3.4); Lymphocytes % (auto) 38.7 %; Monocytes # (auto) 0.42 K/uL (0.11-0.59); Neutrophils # (auto) 0.48 K/uL (1.4-6.5); Ovalocytes 2+; Phosphorus 2.5 mg/dl (2.5-4.9); Platelet Estimate SIGNIFIC DECREASED (Normal); Total Protein 7.3 gm/dl (6.4-8.2)
[2021-08-02] MEDS: ESCITALOPRAM OXALATE 20 MG TAB PO SCH (10:17)
[2021-08-02] MEDS: MAGNESIUM SULFATE / D5W 1 GM/100 ML BAG IV SCH ×4 (10:17→16:12)
--- NOTE | 2021-08-02 10:26 | Nephrology Progress Note ---
Date of Service August 02, 2021 Assessment & Plan (1) DAMON (acute kidney injury): (2) Hyperkalemia: (3) Atrial fibrillation with rapid ventricular response: (4) NSTEMI (non-ST elevated myocardial infarction): (5) Acute on chronic anemia: Plan: 76-year-old male with coronary artery disease, AFib admitted with AFib with RVR. On admission he was found to have DAMON and hyperkalemia with no prior CKD or baseline lab value available. Was on low-dose lisinopril but not on potassium supplement. DAMON most likely hemodynamically mediated in the setting of AFib with RVR and relatively low blood pressure with decreased forward flow. Renal function continues to improve, creatinine down to 1.3, potassium high at 6.0. Blood pressure controlled. -- change diet to low-potassium diet, continue to hold CHI-inhibitor/ ARB, continue Veltassa. repeat potassium in few hours if potassium remains high, give another dose of insulin and D50. --Continue to hold lisinopril for now eventually can be started on low-dose if blood pressure stable and potassium normalized. --Encourage increased p.o. intake to maintain hydration, Continue to hold diuretic at this time. Will follow. Admission and Anticipated Discharge Date Admission Date: July 31, 2021 Michael Joshi was seen and examined in his room. He just feels tired but denies any other symptom. Appetite decent. Blood pressure acceptable. Renal function improved and creatinine down to 1.3 however, potassium again elevated at 6.0. Review of Systems Review of Systems: Detailed review of system was otherwise unremarkable except mentioned above. Physical Exam Constitutional: + ill appearing and + frail appearing; no acute distress Respiratory: normal respiratory effort, lungs clear to auscultation Cardiovascular: RRR, no murmur, no edema Neurologic: moves all extremities and awake; not confused Psychiatric: A+Ox3, euthymic affect Results & Data ([facility]) Vital Signs (Past 12 Hours) Vital Signs Temp Pulse Resp BP Pulse Ox Pulse Ox 08/02/21 08:19 36.4 C L 120 H 18 139/67 96 08/02/21 04:38 36.8 C 84 18 96/45 L 97 08/02/21 00:49 95 08/01/21 23:18 36.7 C 79 18 97/53 L 97 PG Care Time/CCT Total # of Minutes Spent Total Time Spent with Patient: Total time spent is greater than 50% in coordination of care (as documented) at patient's floor/unit and/or counseling patient: Coding Level of Care Code 35060 Subseq Hosp Care Lvl 3 Diagnoses DAMON (acute kidney injury) N17.9 Hyperkalemia E87.5 Atrial fibrillation with rapid ventricular response I48.91 NSTEMI (non-ST elevated myocardial infarction) I21.4 Acute on chronic anemia D64.9
--- NOTE | 2021-08-02 13:15 | Hospitalist Progress Note ---
Date of Service August 02, 2021 Assessment & Plan (1) NSTEMI (non-ST elevated myocardial infarction): Plan: Adi Louis is a 76 yo male with PMHx significant for CAD (s/p CABG in 04/2020), leukemia (currently on chemotherapy, per patient), HFrEF (on home Lasix, s/p AICD), atrial fibrillation (not on AC or BB), COPD (no home O2, unknown GOLD class), and basal cell carcinoma of the left eye (on Erivedge) who was admitted to [facility] on 07/31 for for chest pain; found to have NSTEMI, a-fib with RVR and hyperkalemia. Type II NSTEMI Exertional chest pain for >several hours. EKG with ST depressions and T-wave inversions in inferolateral leads. Troponin peaked at 1.34. - Cardiology consulted - suspects Type II NSTEMI due to a-fib with RVR, - On admission - gave Aspirin 324mg x1 and started Heparin gtt without bolus which was stopped this AM, - no further Aspirin given thrombocytopenia - continue home Atorvastatin 40mg PO QHS - hold home Lisinopril as below (DAMON) - s/p Dilt gtt for a-fib RVR (see below) and is NSR 80s; transitioned to Amio as stated below Atrial Fibrillation with RVR, RVR resolved Past history of a-fib per patient's daughter, although not on home BB or AC. Presented in a-fib RVR but this has resolved, and patient back in NSR, s/p Diltiazem gtt. Suspect this led to elevated Troponin - CHADS-VASc score of 5 - Cardiology on board as stated above - transitioned to Amiodarone 200mg PO BID - defer BB for now as stated above - likely requires long-term anti-coagulation; will defer to Cardiology - also recommend including patient's Oncologist in this discussion (Dr. Eb Hernandez in [place]; [phone]) Hyperkalemia; DAMON Suspect acute hyperkalemia in setting of DAMON. Suspect root cause is pre-renal injury due to poor forward flow in setting of a-fib RVR. K improved from 6.9 --> 5.4 s/p bicarb, D5/insulin, kayexalate. Cr improved from 2.05 --> 1.47 s/p several IVF boluses and control of HR. - K 5.4 --> 6.2 after 1 unit pRBCs -08/01: NSS 500cc @125cc/hr with recheck of 6.0 - Nephro consulted --change diet to low-potassium diet, continue to hold CHI-inhibitor/ ARB, continue Veltassa. repeat potassium in few hours if potassium remains high, giv e another dose of insulin and D50. --holding lisinopril for now eventually can be started on low-dose if blood pressure stable and potassium normalized. --Encourage increased p.o. intake to maintain hydration, Continue to hold diuretic at this time. - Continue patiromer per nephro - will hold on mIVFs for now given NSTEMI and unknown CHF history - held Lasix/Spironolactone as stated above - follow BMP daily Acute Normocytic Anemia; Pancytopenia; Leukemia Hgb 8.2. Plts 33. WBC <3 with severe neutropenia. Suspect acute worsening of anemia is due to hemodilution. 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 - 08/01: transfuse 1 unit leukored/irrad pRBCs now, with another unit on hold - repeat H/H with Hgb 8.2 - hold on platelet transfusion for now given no active bleed and count >10,000 - patient follows with Dr. Hernandez in [place], [place]; reportedly gets "shots" of chemotherapy every few weeks but unsure what the treatment is - also gets periodic "blood transfusions" for "low counts" but unsure when last one was - would be ideal to get records to confirm type of leukemia and chemotherapy - peripheral smear findings consistent with myelodysplasia. - trend CBC daily - continue neutropenic precautions CAD; HFrEF; S/p AICD. Is s/p CABG ~1 year ago, with HFrEF. TTE this morning with EF 25%, severe LV dysfunction, LV akinesis/hypokinesis, Type III diastolic dysfunction, RVSP 50- 55mmHg. - hold Lasix and Spironolactone for now as patient presented hypovolemic - continue Atorvastatin LLE Cramping Patient reports several days of this. No h/o DVT. No recent extended travel time. Negative Mariella sign on exam. - will more definitively r/o with LLE venous duplex - pending T2DM History of such, A1c 6.9% this admission - continue SSI + basal bolus insulin while hospitalized COPD History of such. 120 pack year smoking history (quit 12 years ago). Unknown GOLD class or previous PFTs but not on home O2 therapy. - Albuterol inhaler PRN SOB/wheezing. - Would likely benefit from daily inhalers; defer to PCP based on PFTs and symptom control Depression Patient's in the beginning of June and he has been talking about "wanting to visit and be with her". - continue home escitalopram and Remeron. Hypothyroidism Continue levothyroxine. Basal Cell Carcinoma - patient will use his own Erivedge Code Status: DNR/DNI FEN: Heart-healthy/DM2/low-sodium/low-potassium diet DVT ppx: SCDs, hold chemoppx given profound thrombocytopenia Dispo: PCU with tele (2) Atrial fibrillation with rapid ventricular response: (3) Acute on chronic anemia: (4) CAD (coronary artery disease): (5) Depression: (6) CHF (congestive heart failure): (7) DAMON (acute kidney injury): (8) Hyperkalemia: (9) Leukemia: (10) COPD (chronic obstructive pulmonary disease): Admission and Anticipated Discharge Date Admission Date: July 31, 2021 Supervising Physician Co-Signing Physician Notes Resident Physician Supervision Note: I independently interviewed and examined the patient and verified the wyman his tory and physical, reviewed labs and image studies and agree with resident Dr. Su findings and care plan. Subjective No acute events overnight. Patient seen at bedside this morning, resting comfortably. He reports no acute concerns. Denies chest pain, palpitations, shortness of breath, nausea, vomiting, abdominal pain. Review of Systems Review of Systems: per HPI Physical Exam Physical Exam: General: A&Ox3. NAD. Cooperative. HEENT: Atraumatic, normocephalic. Pulm: CTAB A&P. -wheezes, -rales, -rhonchi. Symmetrical chest rise. No increase work of breathing. No respiratory distress. Cardiac: RRR, -mrg. Radial pulses intact and symmetrical. No JVD. No LE edema. Abdominal: soft, non-tender, non-distended, BS x 4 Skin: warm, dry, no rash Results & Data Results & Data ([facility]) Vital Signs (Past 12 Hours) Vital Signs Temp Pulse Pulse Resp BP Pulse Ox 08/02/21 10:00 71 08/02/21 08:19 36.4 C L 120 H 18 139/67 96 08/02/21 04:38 36.8 C 84 18 96/45 L 97 Resident Activity Tracking Resident Involvement: Resident Care Provided Care Provided: Adult Hospital Medicine
[2021-08-02 14:14] LABS: BUN Creatinine Ratio 23.7 (10-20); Calcium 8.9 mg/dl (8.5-10.1); Creatinine Clr Calc Pharmacy 44.8 ml/min; Est GFR (Non-African American) 54.4 ml/min; Potassium 5.7 mmol/L (3.5-5.1)
[2021-08-02] MEDS: MIRTAZAPINE TAB 15 MG TAB PO SCH (21:27)
[2021-08-02] MEDS: rOPINIRole HCL 1 MG TABLET PO SCH (21:27)
[2021-08-02] MEDS: ATORVASTATIN 40 MG TAB PO SCH (21:27)
[2021-08-03] MEDS: LEVOTHYROXINE SODIUM 75 MCG TABLET PO SCH (06:12)
[2021-08-03 06:59] LABS: Hypogranular Neutrophils 1+
[2021-08-03 07:22] LABS: Anisocytosis Present; Hematocrit (blood only) 23.7 % (42-52); Hemoglobin 7.4 g/dL (14.0-18.0); Hypogranular Neutrophils 2+; Immature Granulocytes # (auto) 0.18 K/uL (0.00-0.02); Immature Granulocytes % (auto) 9.2 %; Lymphocytes # (auto) 0.52 K/uL (1.2-3.4); Lymphocytes % (auto) 26.7 %; Mean Corpuscular Hemoglobin 29.8 pg (25-34); Mean Corpuscular Hgb Conc 31.2 g/dL (32-36); Mean Corpuscular Volume 95.6 fL (80-100); Monocytes # (auto) 0.62 K/uL (0.11-0.59); Monocytes % (auto) 31.8 %; Neutrophils # (auto) 0.63 K/uL (1.4-6.5); Neutrophils % (auto) 32.3 %; Ovalocytes 1+; Platelet Count 22 K/uL (130-400); Platelet Estimate SIGNIFIC DECREASED (Normal); RDW Coefficient of Variation 21.8 % (11.5-14.5); RDW Standard Deviation 73.7 fL (36.4-46.3); Red Blood Count 2.48 M/uL (4.7-6.1); White Blood Count 1.95 K/uL (4.8-10.8)
[2021-08-03] MEDS ORDERED: SODIUM CHLORIDE 0.9% 250 ML IV PRN (07:28)
[2021-08-03 07:29] LABS: BUN Creatinine Ratio 25.5 (10-20); Calcium 8.8 mg/dl (8.5-10.1); Creatinine Clr Calc Pharmacy 47.8 ml/min; Est GFR (African American) 68.1 ml/min; Est GFR (Non-African American) 58.8 ml/min; Potassium 4.9 mmol/L (3.5-5.1)
--- NOTE | 2021-08-03 07:35 | Hospitalist Progress Note ---
Date of Service August 03, 2021 Assessment & Plan (1) NSTEMI (non-ST elevated myocardial infarction): Plan: Adi Louis is a 76 yo male with PMHx significant for CAD (s/p CABG in 04/2020), leukemia (currently on chemotherapy, per patient), HFrEF (on home Lasix, s/p AICD), atrial fibrillation (not on AC or BB), COPD (no home O2, unknown GOLD class), and basal cell carcinoma of the left eye (on Erivedge) who was admitted to [facility] on 07/31 for for chest pain; found to have NSTEMI, a-fib with RVR and hyperkalemia. Acute Normocytic Anemia; Pancytopenia; Leukemia Hgb 8.2. Plts 33. WBC <3 with severe neutropenia. Suspect acute worsening of anemia is due to hemodilution. 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 - 08/01: transfuse 1 unit leukored/irrad pRBCs now, with another unit on hold - 08/02: H/H stable - 08/03: Hgb down to 7.4 -- 2nd unit of leukored/irrad pRBCs ordered, with another unit on board - Recheck after transfusion at 8.4 - hold on platelet transfusion for now given no active bleed and count >10,000 - patient follows with Dr. Hernandez in [place], [place]; reportedly gets "shots" of chemotherapy every few weeks but unsure what the treatment is - also gets periodic "blood transfusions" for "low counts" but unsure when last one was - would be ideal to get records to confirm type of leukemia and chemotherapy -- records requested and pending - peripheral smear findings consistent with myelodysplasia. - trend CBC daily - continue neutropenic precautions - consult palliative care considering recurrent need for transfusion in setting of ?MDS. Type II NSTEMI Exertional chest pain for >several hours. EKG with ST depressions and T-wave inversions in inferolateral leads. Troponin peaked at 1.34. - Cardiology consulted - suspects Type II NSTEMI due to a-fib with RVR, - On admission - gave Aspirin 324mg x1 and started Heparin gtt without bolus which was stopped this AM, - no further Aspirin given thrombocytopenia - continue home Atorvastatin 40mg PO QHS - hold home Lisinopril as below (DAMON) - s/p Dilt gtt for a-fib RVR (see below) and is NSR 80s; transitioned to Amio as stated below Atrial Fibrillation with RVR, RVR resolved Past history of a-fib per patient's daughter, although not on home BB or AC. Presented in a-fib RVR but this has resolved, and patient back in NSR, s/p Diltiazem gtt. Suspect this led to elevated Troponin - CHADS-VASc score of 5 - Cardiology on board as stated above - transitioned to Amiodarone 200mg PO BID - defer BB for now as stated above - likely requires long-term anti-coagulation; will defer to Cardiology - also recommend including patient's Oncologist in this discussion (Dr. Eb Hernandez in [place], [place]; [phone]) Hyperkalemia; DAMON Suspect acute hyperkalemia in setting of DAMON. Suspect root cause is pre-renal injury due to poor forward flow in setting of a-fib RVR. K improved from 6.9 --> 5.4 s/p bicarb, D5/insulin, kayexalate. Cr improved from 2.05 --> 1.47 s/p several IVF boluses and control of HR. - K 5.4 --> 6.2 after 1 unit pRBCs -08/01: NSS 500cc @125cc/hr with recheck of 6.0 - Recheck on 08/03 now normalized with K of 4.9 and Cr of 1.20 - Nephro consulted --change diet to low-potassium diet, continue to hold CHI-inhibitor/ ARB, continue Veltassa. repeat potassium in few hours if potassium remains high, give another dose of insulin and D50. --holding lisinopril for now eventually can be started on low-dose if blood pressure stable and potassium normalized. --Encourage increased p.o. intake to maintain hydration, Continue to hold diuretic at this time. - Continue patiromer per nephro - will hold on mIVFs for now given NSTEMI and unknown CHF history - held Lasix/Spironolactone as stated above - follow BMP daily CAD; HFrEF; S/p AICD. Is s/p CABG ~1 year ago, with HFrEF. TTE this morning with EF 25%, severe LV dysfunction, LV akinesis/hypokinesis, Type III diastolic dysfunction, RVSP 50- 55mmHg. - hold Lasix and Spironolactone for now as patient presented hypovolemic - continue Atorvastatin LLE Cramping Patient reports several days of this. No h/o DVT. No recent extended travel time. Negative Mariella sign on exam. - will more definitively r/o with LLE venous duplex - pending T2DM History of such, A1c 6.9% this admission - continue SSI + basal bolus insulin while hospitalized COPD History of such. 120 pack year smoking history (quit 12 years ago). Unknown GOLD class or previous PFTs but not on home O2 therapy. - Albuterol inhaler PRN SOB/wheezing. - Would likely benefit from daily inhalers; defer to PCP based on PFTs and symptom control Depression Patient's in the beginning of June and he has been talking about "wanting to visit and be with her". - continue home escitalopram and Remeron. Hypothyroidism Continue levothyroxine. Basal Cell Carcinoma - patient will use his own Erivedge Code Status: DNR/DNI FEN: Heart-healthy/DM2/low-sodium/low-potassium diet DVT ppx: SCDs, hold chemoppx given profound thrombocytopenia Dispo: PCU with tele (2) Atrial fibrillation with rapid ventricular response: (3) Acute on chronic anemia: (4) CAD (coronary artery disease): (5) Depression: (6) CHF (congestive heart failure): (7) DAMON (acute kidney injury): (8) Hyperkalemia: (9) Leukemia: (10) COPD (chronic obstructive pulmonary disease): Admission and Anticipated Discharge Date Admission Date: July 31, 2021 Supervising Physician Co-Signing Physician Notes Resident Physician Supervision Note: I independently interviewed and examined the patient and verified the wyman history and physical, reviewed labs and image studies and agree with resident Dr. Su findings and care plan. Subjective No acute events overnight. Patient has remained asymptomatic and denying CP, palp, SOB, abd pain, n/v, ISAACS, dizziness. Review of Systems Review of Systems: per HPI Physical Exam Physical Exam: General: A&Ox3. NAD. Cooperative. HEENT: Atraumatic, normocephalic. Pulm: CTAB A&P. -wheezes, -rales, -rhonchi. Symmetrical chest rise. No increase work of breathing. No respiratory distress. Cardiac: RRR, -mrg. Radial pulses intact and symmetrical. No JVD. No LE edema. Abdominal: soft, non-tender, non-distended, BS x 4 Skin: warm, dry, no rash Results & Data Results & Data ([facility]) Vital Signs (Past 12 Hours) Vital Signs Temp Pulse Pulse Resp BP Pulse Ox 08/03/21 04:40 36.8 C 77 18 102/50 L 96 08/02/21 23:54 36.8 C 82 18 110/50 L 96 08/02/21 23:20 95 H 08/02/21 21:20 36.7 C 08/02/21 20:36 36.9 C 88 116/68 08/02/21 20:06 38.6 C H 95 H 18 91/44 L 98 Resident Activity Tracking Resident Involvement: Resident Care Provided Care Provided: Adult Hospital Medicine
[2021-08-03] MEDS: [UNRECOGNIZED DRUG - OTHER] PO SCH (08:22)
[2021-08-03] MEDS: AMIODARONE 200 MG TAB PO SCH ×2 (08:23→18:31)
[2021-08-03] MEDS: ESCITALOPRAM OXALATE 20 MG TAB PO SCH (08:23)
[2021-08-03] MEDS: INSULIN ASPART 100 UNITS/ML 3 ML PEN SC SCH ×4 (08:37→21:10)
[2021-08-03] MEDS ORDERED: FUROSEMIDE 40 MG in SYRINGE 0 ML IV ONE (09:06)
--- NOTE | 2021-08-03 09:12 | Cardiology Progress Note ---
Date of Service August 03, 2021 Assessment & Plan (1) Atrial fibrillation with rapid ventricular response: Plan: IMPRESSIONS: (1) Atrial fibrillation with rapid ventricular response: (2) CAD (coronary artery disease): (3) Depression: (4) CHF (congestive heart failure) With a severe ischemic cardiomyopathy (5) non-ST ovation myocardial infarction: (6) Hyperkalemia 7. s/p CABG (April 2020) 8. No anticoagulation secondary to profound thrombocytopenia, 9. Basal cell carcinoma of the left eye on Erivedge 10. Hyperkalemia and suspected DAMON. 11. Dual-chamber defibrillator Mr. Louis is in sinus rhythm today with a rates in the 80s. He is continued on amiodarone 200 mg bid. Due to his comorbidities and his profound thrombocytopenia, anemia and neutropenia, he is not a candidate for any kind of intervention. Heparin and aspirin were stopped. His troponin is elevated secondary to demand ischemia from his atrial fibrillation with a rapid ventricular response. Trop peaked at 1.3 and trended down. He has no complaints of chest pain today. In reviewing his chest x-ray it appears he has a dual-chamber defibrillator. Therefore we should not need to worry about excessive bradycardia associated with amiodarone. His bps are a little better today. If they are maintained, we could add a low dose metoprolol to his regimen. Lisinopril is on hold given hyperkalemia and DAMON. Both have improved today. He received a blood transfusion ont. He will receive more blood today for his low hgb. Recommend keeping his hemoglobin greater than 8. He will also receive a dose of lasix with his transfusion We need to obtain his outside cardiology records as he previously was followed in [place] and is now followed in [place]. His echocardiogram shows that he has severe severe LV dysfunction the inferior wall is akinetic anterior wall was significantly hypokinetic. He has pulmonary hypertension. He also has at least moderate mitral regurgitation. Admission and Anticipated Discharge Date Admission Date: July 31, 2021 Subjective Mr. Louis was just finished getting washed up when I saw him this morning. He w as fairly winded from doing so. No chest pain or palpitations. He has been in SR on the monitor. He said, "I think my will be calling me soon". She this June. Review of Systems Review of Systems: All systems reviewed & are unremarkable except as noted in HPI & below Physical Exam Constitutional: + cachectic; no acute distress Respiratory: normal respiratory effort, lungs clear to auscultation Skin: no rashes, warm and dry Neurologic: moves all extremities and awake Psychiatric: A+Ox3, euthymic affect Results & Data ([facility]) Vital Signs (Past 12 Hours) Vital Signs Temp Pulse Pulse Resp BP Pulse Ox 08/03/21 08:02 36.2 C L 85 18 124/65 96 08/03/21 04:40 36.8 C 77 18 102/50 L 96 08/02/21 23:54 36.8 C 82 18 110/50 L 96 08/02/21 23:20 95 H 08/02/21 21:20 36.7 C
[2021-08-03] MEDS: PATIROMER CALCIUM SORBITEX 8.4 GM PACK PO SCH (10:22)
--- NOTE | 2021-08-03 10:25 | Nephrology Progress Note ---
Date of Service August 03, 2021 Assessment & Plan (1) DAMON (acute kidney injury): (2) Hyperkalemia: (3) Atrial fibrillation with rapid ventricular response: (4) NSTEMI (non-ST elevated myocardial infarction): (5) Acute on chronic anemia: Plan: 76-year-old male with coronary artery disease, AFib admitted with AFib with RVR. On admission he was found to have DAMON and hyperkalemia with no prior CKD or baseline lab value available. Was on low-dose lisinopril but not on potassium supplement. DAMON most likely hemodynamically mediated in the setting of AFib with RVR and relatively low blood pressure with decreased forward flow. Renal function continues to improve, creatinine down to 1.2, potassium <5, Blood pressure controlled. --Continue to hold lisinopril on discharge, advised patient to avoid high potassium food. Eventually can be restarted on low-dose as an outpatient if blood pressure stable and potassium normalized. --Encourage increased p.o. intake to maintain hydration, Continue to hold diuretic at this time. Will sign off, no further Nephrology follow-up indicated at this time. Admission and Anticipated Discharge Date Admission Date: July 31, 2021 Michael Dickey was seen this morning in his room, remains comfortable, asymptomatic. Blood pressure well controlled. Renal function improved, close to baseline. Potassium less than 5. Review of Systems Review of Systems: Detailed review of system was otherwise unremarkable except mentioned above. Physical Exam Constitutional: + frail appearing; no acute distress Respiratory: normal respiratory effort, lungs clear to auscultation Cardiovascular: RRR, no murmur, no edema Neurologic: moves all extremities and awake; not confused Psychiatric: A+Ox3, euthymic affect Results & Data ([facility]) Vital Signs (Past 12 Hours) Vital Signs Temp Pulse Pulse Resp BP BP Pulse Ox 08/03/21 10:08 36.5 C 82 124/54 L 08/03/21 09:52 36.5 C 86 22 124/54 L 98 08/03/21 08:02 36.2 C L 85 18 124/65 96 08/03/21 04:40 36.8 C 77 18 102/50 L 96 08/02/21 23:54 36.8 C 82 18 110/50 L 96 08/02/21 23:20 95 H PG Care Time/CCT Total # of Minutes Spent Total Time Spent with Patient: Total time spent is greater than 50% in coordination of care (as documented) at patient's floor/unit and/or counseling patient: Coding Level of Care Code 08983 Subseq Hosp Care Lvl 2 Diagnoses DAMON (acute kidney injury) N17.9 Hyperkalemia E87.5 Atrial fibrillation with rapid ventricular response I48.91 NSTEMI (non-ST elevated myocardial infarction) I21.4 Acute on chronic anemia D64.9
[2021-08-03] MEDS: SALINE NASAL GEL (AYR) 14.1 GM TUBE SCH ×2 (12:11→21:08)
--- NOTE | 2021-08-03 15:10 | Electrocardiogram Report ---
Test Reason : Blood Pressure : / mmHG Vent. Rate : 084 BPM Atrial Rate : 084 BPM P-R Int : 162 ms QRS Dur : 098 ms QT Int : 368 ms P-R-T Axes : 070 073 250 degrees QTc Int : 434 ms Normal sinus rhythm Abnormal ECG When compared with ECG of 01-AUG-2021 03:02, (unconfirmed) Premature ventricular complexes are no longer Present Confirmed by Alexis Chan ([id number]) on 08/03/2021 3:10:28 PM Referred By: REFERRED SELF Confirmed By:Alexis Chan
[2021-08-03 15:44] LABS: Hematocrit (blood only) 27.3 % (42-52); Hemoglobin 8.6 g/dL (14.0-18.0); Mean Corpuscular Hemoglobin 29.7 pg (25-34); Mean Corpuscular Hgb Conc 31.5 g/dL (32-36); Mean Corpuscular Volume 94.1 fL (80-100); Platelet Count 28 K/uL (130-400); RDW Standard Deviation 68.8 fL (36.4-46.3); White Blood Count 3.18 K/uL (4.8-10.8)
[2021-08-03 15:45] LABS: Platelet Estimate SIGNIFIC DECREASED (Normal)
[2021-08-03] MEDS: ATORVASTATIN 40 MG TAB PO SCH (21:07)
[2021-08-03] MEDS: MIRTAZAPINE TAB 15 MG TAB PO SCH (21:07)
[2021-08-03] MEDS: rOPINIRole HCL 1 MG TABLET PO SCH (21:07)
[2021-08-04] MEDS: LEVOTHYROXINE SODIUM 75 MCG TABLET PO SCH (05:35)
--- NOTE | 2021-08-04 07:49 | Hospitalist Progress Note ---
Date of Service August 04, 2021 Assessment & Plan (1) NSTEMI (non-ST elevated myocardial infarction): Plan: Adi Louis is a 76 yo male with PMHx significant for CAD (s/p CABG in 04/2020), leukemia (currently on chemotherapy, per patient), HFrEF (on home Lasix, s/p AICD), atrial fibrillation (not on AC or BB), COPD (no home O2, unknown GOLD class), and basal cell carcinoma of the left eye (on Erivedge) who was admitted to [facility] on 07/31 for for chest pain; found to have NSTEMI, a-fib with RVR and hyperkalemia. Acute Normocytic Anemia; Pancytopenia; Leukemia Hgb 8.2. Plts 33. WBC <3 with severe neutropenia. Suspect acute worsening of anemia is due to hemodilution. 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 - 08/01: transfuse 1 unit leukored/irrad pRBCs now, with another unit on hold - 08/02: H/H stable - 08/03: Hgb down to 7.4 -- 2nd unit of leukored/irrad pRBCs ordered, with another unit on board - Recheck after transfusion at 8.4 - hold on platelet transfusion for now given no active bleed and count >10,000 - patient follows with Dr. Hernandez in [place], [place]; reportedly gets "shots" of chemotherapy every few weeks but unsure what the treatment is - also gets periodic "blood transfusions" for "low counts" but unsure when last one was - would be ideal to get records to confirm type of leukemia and chemotherapy -- records requested and pending - peripheral smear findings consistent with myelodysplasia. - trend CBC daily - continue neutropenic precautions - consult palliative care considering recurrent need for transfusion in setting of ?MDS - Per conversation with patient at this time he prefers to continue with monitoring of his blood counts and transfusions as needed Type II NSTEMI Exertional chest pain for >several hours. EKG with ST depressions and T-wave inversions in inferolateral leads. Troponin peaked at 1.34. - Cardiology consulted - suspects Type II NSTEMI due to a-fib with RVR, - On admission - gave Aspirin 324mg x1 and started Heparin gtt without bolus which was stopped this AM, - no further Aspirin given thrombocytopenia - continue home Atorvastatin 40mg PO QHS - hold home Lisinopril as below (DAMON) - s/p Dilt gtt for a-fib RVR (see below) and is NSR 80s; transitioned to Amio as stated below Atrial Fibrillation with RVR, RVR resolved Past history of a-fib per patient's daughter, although not on home BB or AC. P resented in a-fib RVR - now in NSR, s/p Diltiazem gtt. Suspect this led to elevated Troponin - CHADS-VASc score of 5 - Cardiology following - transitioned to Amiodarone 200mg PO BID - defer BB for now as stated above - likely requires long-term anti-coagulation; will defer to Cardiology - also recommend including patient's Oncologist in this discussion (Dr. Eb Hernandez in [place], [place]; [phone]) Hyperkalemia; DAMON Suspect acute hyperkalemia in setting of DAMON. Pre-renal injury due to RVR. K improved from 6.9 --> 5.4 s/p bicarb, D5/insulin, kayexalate. Cr improved from 2.05 --> 1.47 s/p several IVF boluses and control of HR. - K 5.4 --> 6.2 after 1 unit pRBCs -08/01: NSS 500cc @125cc/hr with recheck of 6.0 - Recheck on 08/03 now normalized with K of 4.9 and Cr of 1.20 - Nephro consulted --Continue to hold lisinopril on discharge, advised patient to avoid high potassium food. Eventually can be restarted on low-dose as an outpatient if blood pressure stable and potassium normalized. --Encourage increased p.o. intake to maintain hydration, Continue to hold diuretic at this time. - Continue patiromer per nephro - held Lasix/Spironolactone as stated above - follow BMP daily CAD; HFrEF; S/p AICD. Is s/p CABG ~1 year ago, with HFrEF. TTE this morning with EF 25%, severe LV dysfunction, LV akinesis/hypokinesis, Type III diastolic dysfunction, RVSP 50- 55mmHg. - hold Lasix and Spironolactone for now as patient presented hypovolemic - continue Atorvastatin LLE Cramping Patient reports several days of this. No h/o DVT. No recent extended travel time. Negative Mariella sign on exam. - will more definitively r/o with LLE venous duplex - pending T2DM History of such, A1c 6.9% this admission - continue SSI + basal bolus insulin while hospitalized COPD History of such. 120 pack year smoking history (quit 12 years ago). Unknown GOLD class or previous PFTs but not on home O2 therapy. - Albuterol inhaler PRN SOB/wheezing. - Would likely benefit from daily inhalers; defer to PCP based on PFTs and symptom control Depression Patient's in the beginning of June and he has been talking about "wanting to visit and be with her". - continue home escitalopram and Remeron. Hypothyroidism Continue levothyroxine. Basal Cell Carcinoma - patient will use his own Erivedge Code Status: DNR/DNI FEN: Heart-healthy/DM2/low-sodium/low-potassium diet DVT ppx: SCDs, hold chemoppx given profound thrombocytopenia Dispo: Medsurg (2) Atrial fibrillation with rapid ventricular response: (3) Acute on chronic anemia: (4) CAD (coronary artery disease): (5) Depression: (6) CHF (congestive heart failure): (7) DAMON (acute kidney injury): (8) Hyperkalemia: (9) Leukemia: (10) COPD (chronic obstructive pulmonary disease): Admission and Anticipated Discharge Date Admission Date: July 31, 2021 Supervising Physician Co-Signing Physician Notes Resident Physician Supervision Note: I independently interviewed and examined the patient and verified the wyman history and physical, reviewed labs and image studies and agree with resident Dr. Su findings and care plan. Subjective No acute events overnight. Patient seen at bedside this morning sleeping comfo rtably in no acute distress. Seen again in afternoon. Patient reports no complaints or concerns at this time. We discussed his recurrently low blood counts after my conversation with his oncology office. At this point he says that he does not want to move to hospice and wants to keep getting transfusions as needed for his blood counts and keep his treatment as is with his oncology providers. Denies fever, chills, nausea, vomiting, abdominal pain, chest pain, palpitations, shortness of breath, cough. Review of Systems Review of Systems: per Subjective Physical Exam Physical Exam: General: A&Ox3. NAD. Cooperative. HEENT: Atraumatic, normocephalic. Pulm: CTAB A&P. -wheezes, -rales, -rhonchi. Symmetrical chest rise. No increase work of breathing. No respiratory distress. Cardiac: RRR, -mrg. Radial pulses intact and symmetrical. No JVD. No LE edema. Abdominal: soft, non-tender, non-distended, BS x 4 Skin: warm, dry, no rash Results & Data Results & Data ([facility]) Vital Signs (Past 12 Hours) Vital Signs Temp Pulse Pulse Resp BP Pulse Ox 08/04/21 03:23 36.6 C 88 20 134/71 96 08/04/21 00:08 81 08/03/21 23:34 37 C 82 18 127/66 98 Resident Activity Tracking Resident Involvement: Resident Care Provided Care Provided: Adult Hospital Medicine
[2021-08-04 07:58] LABS: Hematocrit (blood only) 26.8 % (42-52); Hemoglobin 8.4 g/dL (14.0-18.0); Mean Corpuscular Hemoglobin 29.8 pg (25-34); Platelet Count 27 K/uL (130-400); RDW Coefficient of Variation 21.5 % (11.5-14.5); RDW Standard Deviation 71.7 fL (36.4-46.3); Red Blood Count 2.82 M/uL (4.7-6.1); White Blood Count 2.28 K/uL (4.8-10.8)
[2021-08-04 08:14] LABS: Mean Corpuscular Hgb Conc 31.3 g/dL (32-36)
[2021-08-04 08:15] LABS: Eosinophils # (auto) 0.01 K/uL (0-0.5); Eosinophils % (auto) 0.4 %; Giant Platelets 1+; Hypogranular Neutrophils 1+; Immature Granulocytes # (auto) 0.03 K/uL (0.00-0.02); Immature Granulocytes % (auto) 1.3 %; Lymphocytes # (auto) 0.64 K/uL (1.2-3.4); Lymphocytes % (auto) 28.1 %; Monocytes # (auto) 0.87 K/uL (0.11-0.59); Monocytes % (auto) 38.2 %; Neutrophils # (auto) 0.73 K/uL (1.4-6.5); Platelet Estimate SIGNIFIC DECREASED (Normal)
[2021-08-04 08:22] LABS: BUN Creatinine Ratio 22.9 (10-20); Calcium 8.7 mg/dl (8.5-10.1); Creatinine Clr Calc Pharmacy 55.1 ml/min; Est GFR (African American) 80.1 ml/min; Est GFR (Non-African American) 69.1 ml/min; Potassium 5.3 mmol/L (3.5-5.1)
[2021-08-04] MEDS: AMIODARONE 200 MG TAB PO SCH ×2 (08:35→19:25)
[2021-08-04] MEDS: ESCITALOPRAM OXALATE 20 MG TAB PO SCH (08:35)
[2021-08-04] MEDS: [UNRECOGNIZED DRUG - OTHER] PO SCH (08:36)
[2021-08-04] MEDS: SALINE NASAL GEL (AYR) 14.1 GM TUBE SCH ×2 (08:36→21:06)
[2021-08-04] MEDS: INSULIN ASPART 100 UNITS/ML 3 ML PEN SC SCH ×4 (08:38→21:08)
[2021-08-04] MEDS: PATIROMER CALCIUM SORBITEX 8.4 GM PACK PO SCH (10:31)
[2021-08-04] MEDS: ATORVASTATIN 40 MG TAB PO SCH (21:02)
[2021-08-04] MEDS: rOPINIRole HCL 1 MG TABLET PO SCH (21:03)
[2021-08-04] MEDS: MIRTAZAPINE TAB 15 MG TAB PO SCH (21:03)
[2021-08-05] MEDS: LEVOTHYROXINE SODIUM 75 MCG TABLET PO SCH (06:21)
[2021-08-05 07:04] LABS: Mean Corpuscular Hgb Conc 31.5 g/dL (32-36)
[2021-08-05 07:15] LABS: Hematocrit (blood only) 27.9 % (42-52); Hemoglobin 8.8 g/dL (14.0-18.0); Mean Corpuscular Hemoglobin 29.8 pg (25-34); Mean Corpuscular Volume 94.6 fL (80-100); RDW Coefficient of Variation 21.5 % (11.5-14.5); RDW Standard Deviation 70.5 fL (36.4-46.3); Red Blood Count 2.95 M/uL (4.7-6.1); White Blood Count 2.13 K/uL (4.8-10.8)
[2021-08-05 07:22] LABS: BUN Creatinine Ratio 22.3 (10-20); Creatinine Clr Calc Pharmacy 58.5 ml/min; Est GFR (Non-African American) 74.2 ml/min; Potassium 5.1 mmol/L (3.5-5.1)
[2021-08-05 07:32] LABS: Platelet Count 27 K/uL (130-400)
[2021-08-05 07:34] LABS: Eosinophils # (auto) 0.01 K/uL (0-0.5); Eosinophils % (auto) 0.5 %; Immature Granulocytes # (auto) 0.11 K/uL (0.00-0.02); Immature Granulocytes % (auto) 5.2 %; Lymphocytes # (auto) 0.47 K/uL (1.2-3.4); Lymphocytes % (auto) 22.1 %; Monocytes % (auto) 37.6 %; Neutrophils # (auto) 0.74 K/uL (1.4-6.5); Neutrophils % (auto) 34.6 %
[2021-08-05 07:38] LABS: Hypogranular Neutrophils 1+
[2021-08-05] MEDS: ESCITALOPRAM OXALATE 20 MG TAB PO SCH (08:25)
[2021-08-05] MEDS: AMIODARONE 200 MG TAB PO SCH (08:25)
[2021-08-05] MEDS: [UNRECOGNIZED DRUG - OTHER] PO SCH (08:27)
[2021-08-05] MEDS: SALINE NASAL GEL (AYR) 14.1 GM TUBE SCH (08:30)
[2021-08-05] MEDS: INSULIN ASPART 100 UNITS/ML 3 ML PEN SC SCH ×2 (09:23→13:15)
[2021-08-05] MEDS: PATIROMER CALCIUM SORBITEX 8.4 GM PACK PO SCH (10:29)
--- NOTE | 2021-08-05 11:57 | Palliative Care Consultation ---
Date of Consultation August 05, 2021 Assessment & Plan (1) Palliative care encounter: I talked with Mr. Louis about how he is coping with his multiple chronic illnesses. He is suffering most right now from the recent of his . She in the hospital and he is adamant that he does not want to in the hospital. He lives with his daughter, Adriana, who is a nurse at [employer]. He tells me that she would be his surrogate decision maker. We talked about what brings him leandro, which is his grandchildren and great grandchildren. He enjoys tinkering in his garage shop. 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 He has been able to recently work in his shop and built himself a headboard for his bed. He indicates that he would want to continue treatments for his leukemia as long as he is able to work in his garage. At the point where he is not able to do that, he would want to be at home with hospice care and at home. We discussed transfusions which would likely be a recurring issue for him. He is agreeable to transfusions at this time and does feel better afterwards. He does note that if it got to the point where he was needed transfusion daily or every few days, he would no longer want to continue that. I did try to reach his daughter, Adriana, to review our discussion but was not able to reach her. (2) NSTEMI (non-ST elevated myocardial infarction): (3) Leukemia: (4) COPD (chronic obstructive pulmonary disease): History of Present Illness Reason for Consultation: goals of care Requesting Physician: Dr. Inman Attending Physician: Sara Van MD History of Present Illness 76 yo gentleman with history of leukemia who is currently receiving treatment. He has pancytopenia with platelet counts in the 20,000 range. He has comorbid CAD with history of CABG, HFrEF, afib without anticoagulation, COPD, diabetes and basal cell carcinoma. He was admitted with chest pain and NSTEMI. He had afib with RVR and DAMON on admission. Renal function has improved and rate is controlled. He denies pain or dyspnea at this time. We have been consulted to assist with goals of care. Allergies Allergy/AdvReac Type Severity Reaction Status Date / Time No Known Allergies Allergy Verified 07/31/21 18:10 Home Medications Medication Instructions Recorded Confirmed Type atorvastatin 40 mg tablet 40 mg PO HS 07/31/21 07/31/21 History escitalopram oxalate 20 mg tablet 20 mg PO DAILY 07/31/21 07/31/21 History (Lexapro) furosemide 40 mg tablet 40 mg PO DAILY 07/31/21 07/31/21 History insulin degludec 100 unit/mL (3 8 unit SUBCUT HS 07/31/21 07/31/21 History mL) subcutaneous pen (Tresiba FlexTouch U-100 insulin) levothyroxine 75 mcg tablet 75 mcg PO DAILY 07/31/21 07/31/21 History (Euthyrox) lisinopril 5 mg tablet 5 mg PO DAILY 07/31/21 07/31/21 History mirtazapine 15 mg tablet 15 mg PO HS 07/31/21 07/31/21 History ropinirole 1 mg tablet 1 mg PO HS 07/31/21 07/31/21 History spironolactone 25 mg tablet 25 mg PO DAILY 07/31/21 07/31/21 History tramadol 50 mg tablet 50 mg PO DIRECTED PRN 07/31/21 07/31/21 History vismodegib 150 mg capsule 150 mg PO DAILY 07/31/21 07/31/21 History (Erivedge) Patient History Medical History CAD (coronary artery disease) CHF (congestive heart failure) COPD (chronic obstructive pulmonary disease) Depression Leukemia Surgical History History of coronary artery bypass graft Social History Smoking Status: Former smoker Tobacco Type: Cigarettes Cigarettes Per Day: former smoker, 3 packs per day; Smoking End Date: 15 years ago; Second Hand Exposure: Yes; Do You Dip or Chew Tobacco: No; Hx Alcohol Use: No Hx Substance Use: No Preferred Language: French Communication Ability: Effective Finish Machine Tender Required: No Beliefs That Will Affect Care: None Current Living Situation: Family Current Living Situation Comment: with daughter Other Information That Helps Us Care for You: No Feels Safe at Home: Yes Safety Concerns: Feels Safe At This Time Assistive Devices: Glasses Review of Systems Review of Systems: [place] Symptom Assessment Scale Pain 0/3 Dyspnea 0/3 Anorexia 2/3 Nausea 0/3 Fatigue 1/3 Palliative Performance Score 70% Physical Exam Constitutional: + cachectic and + frail appearing ENMT: temporal wasting Respiratory: normal respiratory effort; no labored breathing Cardiovascular: Extremities: no edema Gastrointestinal (Abdomen): nondistended Musculoskeletal: Extremities: + muscle atrophy Neurologic: awake and + confused; no focal motor deficits Speech / Cognition: normal cognition Results & Data ([facility]) Vital Signs (Past 12 Hours) Vital Signs Temp Pulse Resp BP Pulse Ox 08/05/21 08:22 84 125/73 08/05/21 07:54 97.9 F 68 17 93/42 L 96 PG Care Time/CCT Total # of Minutes Spent Total Time Spent: 64 Total Time Spent with Patient: Total time spent is greater than 50% in coordination of care (as documented) at patient's floor/unit and/or counseling patient: goals of care, surrogate decision maker. Coding Level of Care Code 94046 Inpt Consult Level 2 Diagnoses Palliative care encounter Z51.5 NSTEMI (non-ST elevated myocardial infarction) I21.4 Leukemia C95.90 COPD (chronic obstructive pulmonary disease) J44.9
--- NOTE | 2021-08-05 14:22 | Discharge Summary ---
Date of Service August 05, 2021 Admission HPI Per Admitting Provider 76 yo M CAD s/p CABG (April 2020), CHF on diuretic therapy, AFib not on AC, COPD, basal cell carcinoma of the left eye on Erivedge, DM2, hypothyroidism presented to the ER from home for chest pain and palpitations. He reports that this morning shortly after waking he started having left sided chest pain that radiated into the left arm without associated worsening SOB, denied nausea or vomiting, lightheadedness, diaphoresis. He has a history of CABG per daughter by Dr. Cullen in 2019. He has a history of AFib but is not on rate control therapy nor anticoagulation. Per daughter his a few weeks ago, and he has "given up" since then. She reports that he has been more depressed and eating and drinking less. In the ER patient was found to be tachycardic in AFib with RVR. He was started on diltiazem gtt with fairly rapid improvement in his HR to 80s. He also notable had elevated creatinine and elevated potassium to 6.9; interventions including Kayexalate, sodium bicarb, calcium gluconate, ins ulin with D50, and NSS were instituted with an improvement in K to 5.9. Hospitalist service was consulted for admission. Principal Diagnosis Afib with RVR, DAMON, pancytopenia Discharge Exam General: A&Ox3. NAD. Cooperative. HEENT: Atraumatic, normocephalic. Pulm: CTAB A&P. -wheezes, -rales, -rhonchi. Symmetrical chest rise. No increase work of breathing. No respiratory distress. Cardiac: RRR, -mrg. Radial pulses intact and symmetrical. No JVD. No LE edema. Abdominal: soft, non-tender, non-distended, BS x 4 Skin: warm, dry, no rash Discharge Data Allergies Allergy/AdvReac Type Severity Reaction Status Date / Time No Known Allergies Allergy Verified 07/31/21 18:10 Consultations 08/01/21 00:49 Consult Cardiology Routine 08/01/21 01:35 Consult Nephrology Routine 08/02/21 13:57 Consult Health Information Management Stat 08/03/21 11:17 Consult Palliative Care Routine Ordered Studies 08/01/21 12:35 US venous doppler LE LT Routine Hospital Course (1) NSTEMI (non-ST elevated myocardial infarction): Adi Louis is a 76 yo male with PMHx significant for CAD (s/p CABG in 04/2020), leukemia (currently on chemotherapy, per patient), HFrEF (on home Lasix, s/p AICD), atrial fibrillation (not on AC or BB), COPD (no home O2, unknown GOLD class), and basal cell carcinoma of the left eye (on Erivedge) who was admitted to [facility] on 07/31 for for chest pain; found to have NSTEMI, a-fib with RVR and hyperkalemia. Acute Normocytic Anemia; Pancytopenia; Leukemia Hgb 8.2. Plts 33. WBC <3 with severe neutropenia. 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 - s/p 3 units of PRBC leukoreduced/irradiated during hospital stay. hb 8.8 on day of discharge. platelet 27k. - patient follows with Dr. Hernandez in [place]; reportedly gets "shots" of chemotherapy every few weeks but unsure what the treatment is - also gets periodic "blood transfusions" for "low counts" but unsure when last one was - peripheral smear findings consistent with myelodysplasia. - consult palliative care considering recurrent need for transfusion in setting of ?MDS - Patient would want to continue treatments for his leukemia as long as he is able to work in his garage. At the point where he is not able to do that, he would want to be at home with hospice care and at home. - Discussed transfusions which would likely be a recurring issue for him. He is agreeable to transfusions at this time and does feel better afterwards. - He does note that if it got to the point where he was needed transfusion daily or every few days, he would no longer want to continue that. - Recommend f/u with usual Oncology practice in [place], [place] (Dr. Eb Hernandez in [place], [place]; [phone]) at discharge for labs and possible transfusions at that point Type II NSTEMI Exertional chest pain for >several hours. EKG with ST depressions and T-wave inversions in inferolateral leads. Troponin peaked at 1.34. - Cardiology consulted - suspects Type II NSTEMI due to a-fib with RVR, - On admission - gave Aspirin 324mg x1 and started Heparin gtt without bolus which was stopped this AM, - no further Aspirin given thrombocytopenia - continue home Atorvastatin 40mg PO QHS - hold home Lisinopril as below Atrial Fibrillation with RVR, RVR resolved Past history of a-fib per patient's daughter, although not on home BB or AC. Presented in a-fib RVR - now in NSR, s/p Diltiazem gtt. Suspect this led to elevated Troponin - CHADS-VASc score of 5 - s/p Dilt gtt for a-fib RVR (see below) and is NSR 80s; transitioned to Amio as stated below - Cardiology following - transitioned to Amiodarone 200mg PO BID, continue at [place] - defer BB for now as stated above - considering platelet count of 27 - not a candidate for anticoagulation. Hyperkalemia; DAMON Pre-renal injury due to RVR. K improved from 6.9 --> 5.4 s/p bicarb, D5/insulin, kayexalate. Cr improved from 2.05 --> 1.47 s/p several IVF boluses and control of HR. - Recheck on 08/03 normalized with K of 4.9 and Cr of 1.20 - Nephro consulted --Continue to hold lisinopril on discharge, advised patient to avoid high potassium food. Eventually can be restarted on low-dose as an outpatient if blood pressure stable and potassium normalized. --Encourage increased p.o. intake to maintain hydration - held Lasix/Spironolactone as stated below -- restart at DC - Recommend recheck BMP within a week of DC CAD; HFrEF; S/p AICD. Is s/p CABG ~1 year ago, with HFrEF. TTE this morning with EF 25%, severe LV dysfunction, LV akinesis/hypokinesis, Type III diastolic dysfunction, RVSP 50- 55mmHg. - hold Lasix and Spironolactone for now as patient presented hypovolemic -- will continue at [place], recommend BMP as above - Continue Atorvastatin LLE Cramping Patient reports several days of this. No h/o DVT. No recent extended travel time. Negative Mariella sign on exam. - LLE venous duplex negative T2DM History of such, A1c 6.9% this admission -SSI + basal bolus insulin while hospitalized - Continue home regimen at [place] COPD History of such. 120 pack year smoking history (quit 12 years ago). Unknown GOLD class or previous PFTs but not on home O2 therapy. - Albuterol inhaler PRN SOB/wheezing. - Would likely benefit from daily inhalers; defer to PCP based on PFTs and symptom control Depression Patient's in the beginning of June and he has been talking about "wanting to visit and be with her". - continue home escitalopram and Remeron. Hypothyroidism Continue levothyroxine. Basal Cell Carcinoma - patient will use his own Erivedge Code Status: DNR/DNI FEN: Heart-healthy/DM2/low-sodium/low-potassium diet Dispo: Home with daughter (2) Atrial fibrillation with rapid ventricular response: (3) Acute on chronic anemia: (4) CAD (coronary artery disease): (5) Depression: (6) CHF (congestive heart failure): (7) DAMON (acute kidney injury): (8) Hyperkalemia: (9) Leukemia: (10) COPD (chronic obstructive pulmonary disease): Total Time Total Time Spent Total Time Spent (In Minutes): see attending attestation Discharge Plan Discharge Items Patient Disposition: Home - Home Health Services Reason For Visit: AFIB WITH RVR, CHEST PAIN RULE OUT Discharge Diagnosis: Afib with RVR, pancytopenia, leukemia Activity: Per Instructions section Non-emergency contact: Primary Care Provider and Oncologist Call non-emergency contact if: you have any medication questions Follow-up/Referrals: Sky Joyner [Primary Care Provider] - 08/10/21 11:00 am Diet: Regular Addtl Attending Provider Instructions: You were admitted to [facility] due to chest pain. You were found to have atrial fibrillation with a rapid heart beat, which resulted in elevated troponin, a cardiac biomarker that is elevated with heart damage. As such you were treated with medication to control your rapid heart rate. Additionally, you were found to have an acute kidney injury, which required fluids and stopping various medications which could affect your kidneys. You also had findings of severely reduced blood counts including white blood cells, red blood cells, and platelets. Your white cells and platelets remained stably low, but your hemoglobin (a marker of red blood counts) was variable. As such, you were treated with two different red blood cell transfusions, which helped stabilize this to an extent. As discussed, you will likely require more transfusions going forward to maintain your blood counts in the setting of your leukemia. We recommend that you follow-up with your Division Chief/Oncologist for further management and treatment of this. Your medication changes will be as follow: * Start taking amiodarone 200 mg twice daily * Stop taking lisinopril You will likely not need to use the lisinopril going forward as your blood pressure was well controlled and this medication could cause further kidney injury. Please continue to consume a low potassium diet at home and make sure to consume adequate amounts of fluids. Pending Studies at Discharge: No Stand-Alone Forms: My [facility], Smoking Cessation Medications and DC Order Prescriptions: New amiodarone 200 mg Tablet 200 mg PO BIDM 30 Days Qty: 60 RF: 0 Continued furosemide 40 mg tablet 40 mg PO DAILY RF: 0 atorvastatin 40 mg tablet 40 mg PO HS RF: 0 ropinirole 1 mg tablet 1 mg PO HS RF: 0 tramadol 50 mg tablet 50 mg PO DIRECTED PRN (Reason: Pain) RF: 0 spironolactone 25 mg tablet 25 mg PO DAILY RF: 0 levothyroxine [Euthyrox] 75 mcg tablet 75 mcg PO DAILY RF: 0 mirtazapine 15 mg tablet 15 mg PO HS RF: 0 escitalopram oxalate [Lexapro] 20 mg Tablet 20 mg PO DAILY RF: 0 Erivedge 150 mg capsule 150 mg PO DAILY RF: 0 Tresiba FlexTouch U-100 100 unit/mL (3 mL) insulin pen 8 unit SUBCUT HS RF: 0 Discontinued lisinopril 5 mg tablet 5 mg PO DAILY RF: 0 Discharge Orders: Discharge Order (Routine); Ordered 08/05/21 Ordered By: Alexander Brarera/Other Patient Handouts: A1C, Managing Type 2 Diabetes Admission Data Admit Date/Time: 07/31/21 21:25 Attending Provider: Sara Van Admit Provider: Ida Griggs Primary Care Provider: Sky Joyner Other Providers: Dwayne Thayer ; Clint Curry ; Ira Mccallum ; Yesenia Maldonado Supervising Physician Co-Signing Physician Notes Resident Physician Supervision Note: I independently interviewed and examined the patient and verified the wyman history and physical, reviewed labs and image studies and agree with resident Dr. Su findings and care plan. Resident Activity Tracking Resident Involvement: Resident Care Provided Care Provided: Adult [facility] Medicine
== END 2021-08-05 16:44 | disposition home health service (06) | DRG 281 ==
LOC: ED 17:03 → SUATTDRO 21:25 → EDINP 21:25 → 2S 08-01 01:29 → 3E 08-04 18:22

== ENCOUNTER 2021-10-10 20:55 | Inpatient (IN) ==
[2021-10-10] MEDS ORDERED: SODIUM CHLORIDE 0.9% 1000ML 1,000 ML IV SCH (21:15)
[2021-10-10 21:29] LABS: Mean Corpuscular Hgb Conc 30.9 g/dL (32-36)
[2021-10-10 21:39] LABS: Hematocrit (blood only) 26.9 % (42-52); Hemoglobin 8.3 g/dL (14.0-18.0); INR 1.2 (0.9-1.1); Mean Corpuscular Hemoglobin 28.8 pg (25-34); Mean Corpuscular Volume 93.4 fL (80-100); Partial Thromboplastin Ratio 1.1; Partial Thromboplastin Time 29.1 Seconds (21.0-31.0); Prothrombin Time 12.1 Seconds (9.0-12.0); RDW Coefficient of Variation 22.8 % (11.5-14.5); RDW Standard Deviation 75.8 fL (36.4-46.3); Red Blood Count 2.88 M/uL (4.7-6.1); White Blood Count 5.69 K/uL (4.8-10.8)
--- NOTE | 2021-10-10 21:39 | XRay Report ---
XR chest 1V portable CLINICAL HISTORY: rib pain. . Evaluate cardiopulmonary status COMPARISON STUDY: 07/31/2021 TECHNIQUE: 1 view of the chest FINDINGS: Single frontal view of the chest demonstrates the cardiomediastinal silhouette to be within normal li mits. The patient is status post previous cardiothoracic surgery and pacer placement. The lungs are c lear of alveolar opacities. There is no evidence for pleural effusion. There is no evidence for vascu lar congestion. There is no acute osseous pathology. IMPRESSION: No acute cardiopulmonary disease. ACT 112: Negative or not required by law. Electronically signed by: Eliecer Lopez M.D. 10/10/2021 9:38 PM
[2021-10-10 21:47] LABS: Albumin Level 3.2 gm/dl (3.4-5.0); BUN Creatinine Ratio 26.5 (10-20); Creatinine Clr Calc Pharmacy 23.4 ml/min; Est GFR (African American) 29.9 ml/min; Est GFR (Non-African American) 25.8 ml/min; Magnesium 1.9 mg/dl (1.8-2.4); Potassium 5.5 mmol/L (3.5-5.1)
[2021-10-10 21:58] LABS: Albumin Globulin Ratio 0.7 (0.9-2); Globulin 4.5 gm/dl (2.5-4.0); Thyroid Stimulating Hormone 5.11 uIu/ml (0.300-4.500); Total Protein 7.7 gm/dl (6.4-8.2); Troponin I 0.025 ng/ml (0-0.045)
[2021-10-10 22:08] LABS: Influenza A virus by PCR Negative (Neg); Influenza B virus by PCR Negative (Neg); RSV by PCR Negative (Neg); SARS CoV2 RNA(COVID-19) InHosp NEGATIVE (Negative)
[2021-10-10 22:11] LABS: T4 Free Thyroxine 1.39 ng/dl (0.8-1.6)
[2021-10-10 22:14] LABS: Bilirubin,Total 0.4 mg/dl (0.2-1)
[2021-10-10 22:20] LABS: Anisocytosis Present; Giant Platelets 1+; Hypochromasia Present; Immature Granulocytes # (auto) 0.37 K/uL (0.00-0.02); Immature Granulocytes % (auto) 6.5 %; Lymphocytes # (auto) 0.86 K/uL (1.2-3.4); Lymphocytes % (auto) 15.1 %; Monocytes # (auto) 0.52 K/uL (0.11-0.59); Monocytes % (auto) 9.1 %; Neutrophils # (auto) 3.94 K/uL (1.4-6.5); Neutrophils % (auto) 69.3 %; Ovalocytes 1+; Platelet Count 55 K/uL (130-400); Platelet Estimate Decreased (Normal)
--- NOTE | 2021-10-11 00:08 | Emergency Department Note ---
Impression & Plan DAMON (acute kidney injury), CLL (chronic lymphocytic leukemia), Thrush, Acute dehydration, Adult failure to thrive ED Provider Note CHIEF COMPLAINT: weakness, weight loss, poor p.o. intake, CLL HISTORY OF PRESENT ILLNESS: This 76-year-old male patient presents to the emergency department with complaints of poor p.o. intake, weight loss and weakness per his daughter. Patient suffers from multiple medical problems including atrial fibrillation, COPD and CHF, CLL and diabetes. Patient's da liaer is tearful stating that she has tried to feed him multiple things including cold smoothies and hot soups but he will not take them. Patient states they are taste the same. Daughter mentions that his several months ago and after that he has "given up." She was barely able to help him ambulate today and feels he needs some medical attention. REVIEW OF SYSTEMS: Largely unobtainable secondary to the patient's diminished interaction/responsiveness. Majority of history obtained per daughter. ALLERGIES: see below MEDICATIONS: see below PMH: see below SOCIAL HISTORY: see below DDx: Infection, dehydration, metabolic abnormality, hypo/hyperglycemia, electrolyte disturbance, anemia, hypoxia, cardiac sources, intracerebral event, toxicologic, neurologic, as well as other pathologies. PHYSICAL EXAM: Vital signs reviewed. General: Chronically ill-appearing 76-year-old male, in no significant distress. HEENT: No scleral icterus, PERRLA, neck supple. Dry mucous membranes with apparent thrush on the tongue. Atraumatic. Cardiovascular: Regular rate and rhythm, no extra sounds. Pulmonary: Clear to auscultation bilaterally, normal work of breathing. Abdomen: Soft, nontender, nondistended, positive bowel sounds. Musculoskeletal: Atraumatic, no peripheral edema. Neurologic: Patient somnolent but arousable. Nods yes and no to simple questions. Skin: Warm, dry, no rash EMERGENCY DEPARTMENT COURSE/MDM: This patient was evaluated and appeared to be in no significant distress. Patient was somnolent and slept through most of our history and physical. History is obtained largely through the daughter. Patient is cachectic and obviously dry. He does have some thrush appreciated. He was hydrated with normal saline solution. He was noted to have an DAMON likely secondary to acute on chronic renal insufficiency and dehydration. Patient is anemic and likely this is artificially elevated secondary to volume contraction. Chest x-ray was performed and reveals no evidence of acute pulmonary consolidation or failure. Patient's case was discussed with the hospitalist service who will evaluate the patient for admission and further management. Patient and daughter were made aware of the plan and agreed. MONITORING: An order for cardiac monitoring was placed and the patient is noted to be in a normal sinus rhythm at 74 beats per minute. RADIOLOGY: See below EKG: Normal sinus rhythm at 66 bpm. Nonspecific interventricular conduction delay. Prolonged QTC. Repolarization abnormality noted. No PVC, no PAC. 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 Required: No Beliefs That Will Affect Care: None Current Living Situation: Family Current Living Situation Comment: with daughter How many Children do You have: 1 Feels Safe at Home: Yes Assistive Devices: None Allergies Allergies Allergy/AdvReac Type Severity Reaction Status Date / Time No Known Allergies Allergy Verified 10/10/21 22:01 Home Meds Home Medications Medication Instructions Recorded Confirmed escitalopram oxalate 20 mg tablet 20 mg PO DAILY 07/31/21 10/10/21 (Lexapro) furosemide 40 mg tablet 40 mg PO DAILY 07/31/21 10/10/21 levothyroxine 75 mcg tablet 75 mcg PO DAILY 07/31/21 10/10/21 (Euthyrox) ropinirole 1 mg tablet 1 mg PO HS 07/31/21 10/10/21 tramadol 50 mg tablet 50 mg PO Q6 PRN 07/31/21 10/10/21 amiodarone 200 mg tablet 200 mg PO BID 10/10/21 10/10/21 hydroxyzine HCl 10 mg tablet 10 mg PO BID PRN 10/10/21 10/10/21 mirtazapine 15 mg disintegrating 15 mg PO HS 10/10/21 10/10/21 tablet Results & Data (ED) Vital Signs Vital Signs - 24 hr 10/10/21 20:57 Temperature 37.0 C Temperature Source Temporal Artery Scan Pulse Rate 90 Respiratory Rate 20 Respiratory Depth Normal Blood Pressure 93/43 L Blood Pressure Mean 59 Pulse Oximetry 99 Oxygen Delivery Method Room Air Sepsis Recent Fever Within 48 Hours No Sepsis New/Unexplained Change in Mental Status N/A Sepsis Action Taken by Nursing No Action Required Home Medications Current Medication List: was personally reviewed by me Laboratory Data Attestation: I reviewed the patient's lab results. Result diagrams: 10/14/21 06:56 10/14/21 06:56 Lab Results 10/10/21 10/10/21 10/10/21 Range/Units 21:10 21:12 21:12 WBC 5.69 (4.8-10.8) K/uL RBC 2.88 L (4.7-6.1) M/uL Hgb 8.3 L (14.0-18.0) g/dL Hct 26.9 L (42-52) % MCV 93.4 (80-100) fL MCH 28.8 (25-34) pg MCHC 30.9 L (32-36) g/dL RDW Std Deviation 75.8 H (36.4-46.3) fL RDW Coeff of Donn 22.8 H (11.5-14.5) % Plt Count 55 L (130-400) K/uL Immature Gran % (Auto) 6.5 % Neut % (Auto) 69.3 % Lymph % (Auto) 15.1 % Fajardo % (Auto) 9.1 % Eos % (Auto) 0.0 % Baso % (Auto) 0.0 % Neut # (Auto) 3.94 (1.4-6.5) K/uL Lymph # (Auto) 0.86 L (1.2-3.4) K/uL Fajardo # (Auto) 0.52 (0.11-0.59) K/uL Eos # (Auto) 0.00 (0-0.5) K/uL Baso # (Auto) 0.00 (0-0.2) K/uL Immature Gran # (Auto) 0.37 H (0.00-0.02) K/uL Hyposegmented Neuts 1+ Hypogranular Neuts 1+ Platelet Estimate Decreased L (Normal) Giant Platelets 1+ Hypochromasia Present Anisocytosis Present Ovalocytes 1+ PT (9.0-12.0) Seconds INR (0.9-1.1) APTT (21.0-31.0) Seconds PTT Ratio Sodium 132 L (136-145) mmol/L Potassium 5.5 H (3.5-5.1) mmol/L Chloride 102 (98-107) mmol/L Carbon Dioxide 22 (21-32) mmol/L Anion Gap 8.0 (3-11) BUN 63 H (7-18) mg/dl Creatinine 2.37 H (0.6-1.4) mg/dl Est Cr Clr Drug Dosing 23.4 ml/min Est GFR ( Amer) 29.9 ml/min Est GFR (Non-Af Amer) 25.8 ml/min BUN/Creatinine Ratio 26.5 H (10-20) Glucose 136 H (70-99) mg/dl Lactate (0.4-2.0) mmol/L Calcium 9.0 (8.5-10.1) mg/dl Magnesium 1.9 (1.8-2.4) mg/dl Total Bilirubin 0.4 (0.2-1) mg/dl AST 48 H (15-37) U/L ALT 52 (12-78) Alkaline Phosphatase 102 (45-117) U/L Troponin I 0.025 (0-0.045) ng/ml Total Protein 7.7 (6.4-8.2) gm/dl Albumin 3.2 L (3.4-5.0) gm/dl Globulin 4.5 H (2.5-4.0) gm/dl Albumin/Globulin Ratio 0.7 L (0.9-2) TSH 5.110 H (0.300-4.500) uIu/ml Free T4 1.39 (0.8-1.6) ng/dl SARS-CoV-2 (PCR) (Negative) Influenza Type A (PCR) (Neg) Influenza Type B (PCR) (Neg) RSV (RT-PCR) (Neg) Bld Cult Staph aureus PCR Negative (Negative) Blood Culture MRSA PCR Negative (Negative) 12/26/21 12/26/21 12/26/21 Range/Units 21:12 21:12 21:14 WBC (4.8-10.8) K/uL RBC (4.7-6.1) M/uL Hgb (14.0-18.0) g/dL Hct (42-52) % MCV (80-100) fL MCH (25-34) pg MCHC (32-36) g/dL RDW Std Deviation (36.4-46.3) fL RDW Coeff of Donn (11.5-14.5) % Plt Count (130-400) K/uL Immature Gran % (Auto) % Neut % (Auto) % Lymph % (Auto) % Fajardo % (Auto) % Eos % (Auto) % Baso % (Auto) % Neut # (Auto) (1.4-6.5) K/uL Lymph # (Auto) (1.2-3.4) K/uL Fajardo # (Auto) (0.11-0.59) K/uL Eos # (Auto) (0-0.5) K/uL Baso # (Auto) (0-0.2) K/uL Immature Gran # (Auto) (0.00-0.02) K/uL Hyposegmented Neuts Hypogranular Neuts Platelet Estimate (Normal) Giant Platelets Hypochromasia Anisocytosis Ovalocytes PT 12.1 H (9.0-12.0) Seconds INR 1.2 H (0.9-1.1) APTT 29.1 (21.0-31.0) Seconds PTT Ratio 1.1 Sodium (136-145) mmol/L Potassium (3.5-5.1) mmol/L Chloride (98-107) mmol/L Carbon Dioxide (21-32) mmol/L Anion Gap (3-11) BUN (7-18) mg/dl Creatinine (0.6-1.4) mg/dl Est Cr Clr Drug Dosing ml/min Est GFR ( Amer) ml/min Est GFR (Non-Af Amer) ml/min BUN/Creatinine Ratio (10-20) Glucose (70-99) mg/dl Lactate 3.0 H* (0.4-2.0) mmol/L Calcium (8.5-10.1) mg/dl Magnesium (1.8-2.4) mg/dl Total Bilirubin (0.2-1) mg/dl AST (15-37) U/L ALT (12-78) Alkaline Phosphatase (45-117) U/L Troponin I (0-0.045) ng/ml Total Protein (6.4-8.2) gm/dl Albumin (3.4-5.0) gm/dl Globulin (2.5-4.0) gm/dl Albumin/Globulin Ratio (0.9-2) TSH (0.300-4.500) uIu/ml Free T4 (0.8-1.6) ng/dl SARS-CoV-2 (PCR) NEGATIVE (Negative) Influenza Type A (PCR) Negative (Neg) Influenza Type B (PCR) Negative (Neg) RSV (RT-PCR) Negative (Neg) Bld Cult Staph aureus PCR (Negative) Blood Culture MRSA PCR (Negative) 10/10/21 Range/Units 23:55 WBC (4.8-10.8) K/uL RBC (4.7-6.1) M/uL Hgb (14.0-18.0) g/dL Hct (42-52) % MCV (80-100) fL MCH (25-34) pg MCHC (32-36) g/dL RDW Std Deviation (36.4-46.3) fL RDW Coeff of Donn (11.5-14.5) % Plt Count (130-400) K/uL Immature Gran % (Auto) % Neut % (Auto) % Lymph % (Auto) % Fajardo % (Auto) % Eos % (Auto) % Baso % (Auto) % Neut # (Auto) (1.4-6.5) K/uL Lymph # (Auto) (1.2-3.4) K/uL Fajardo # (Auto) (0.11-0.59) K/uL Eos # (Auto) (0-0.5) K/uL Baso # (Auto) (0-0.2) K/uL Immature Gran # (Auto) (0.00-0.02) K/uL Hyposegmented Neuts Hypogranular Neuts Platelet Estimate (Normal) Giant Platelets Hypochromasia Anisocytosis Ovalocytes PT (9.0-12.0) Seconds INR (0.9-1.1) APTT (21.0-31.0) Seconds PTT Ratio Sodium (136-145) mmol/L Potassium (3.5-5.1) mmol/L Chloride (98-107) mmol/L Carbon Dioxide (21-32) mmol/L Anion Gap (3-11) BUN (7-18) mg/dl Creatinine (0.6-1.4) mg/dl Est Cr Clr Drug Dosing ml/min Est GFR ( Amer) ml/min Est GFR (Non-Af Amer) ml/min BUN/Creatinine Ratio (10-20) Glucose (70-99) mg/dl Lactate 1.1 (0.4-2.0) mmol/L Calcium (8.5-10.1) mg/dl Magnesium (1.8-2.4) mg/dl Total Bilirubin (0.2-1) mg/dl AST (15-37) U/L ALT (12-78) Alkaline Phosphatase (45-117) U/L Troponin I (0-0.045) ng/ml Total Protein (6.4-8.2) gm/dl Albumin (3.4-5.0) gm/dl Globulin (2.5-4.0) gm/dl Albumin/Globulin Ratio (0.9-2) TSH (0.300-4.500) uIu/ml Free T4 (0.8-1.6) ng/dl SARS-CoV-2 (PCR) (Negative) Influenza Type A (PCR) (Neg) Influenza Type B (PCR) (Neg) RSV (RT-PCR) (Neg) Bld Cult Staph aureus PCR (Negative) Blood Culture MRSA PCR (Negative) Administered Medications Discontinued Medications Acetaminophen (Acetaminophen 325 Mg Tab) 650 mg PO Q4H PRN PRN Reason: Pain or Fever Stop: 11/10/21 03:51 Last Admin: 10/11/21 15:09 Dose: 650 mg Documented by: [id number] Amiodarone HCl (Amiodarone 200 Mg Tab) 200 mg PO BID CRYS Stop: 11/10/21 08:59 Last Admin: 10/14/21 09:02 Dose: Not Given Documented by: [id number] Admin: 10/13/21 22:26 Dose: 200 mg Documented by: [id number] Admin: 10/13/21 09:02 Dose: 200 mg Documented by: [id number] Admin: 10/12/21 21:45 Dose: 200 mg Documented by: [id number] Admin: 10/12/21 10:16 Dose: 200 mg Documented by: [id number] Admin: 10/11/21 21:41 Dose: 200 mg Documented by: [id number] Admin: 10/11/21 08:17 Dose: 200 mg Documented by: [id number] Atorvastatin Calcium (Atorvastatin 40 Mg Tab) 40 mg PO HS CRYS Stop: 11/10/21 20:59 Last Admin: 10/13/21 22:27 Dose: 40 mg Documented by: [id number] Admin: 10/12/21 21:46 Dose: 40 mg Documented by: [id number] Admin: 10/11/21 21:41 Dose: 40 mg Documented by: [id number] Ceftriaxone Sodium (Ceftriaxone Sodium 1000mg/50ml D5w) Confirm Administered Dose 1,000 mg IV .STK-MED ONE Stop: 10/12/21 05:18 Last Admin: 10/12/21 05:17 Dose: Not Given Documented by: [id number] Escitalopram Oxalate (Escitalopram Oxalate 20 Mg Tab) 20 mg PO DAILY CRYS Stop: 11/10/21 08:59 Last Admin: 10/15/21 08:45 Dose: 20 mg Documented by: [id number] Admin: 10/14/21 08:54 Dose: 20 mg Documented by: [id number] Admin: 10/13/21 09:01 Dose: 20 mg Documented by: [id number] Admin: 10/12/21 10:17 Dose: 20 mg Documented by: [id number] Admin: 10/11/21 08:17 Dose: 20 mg Documented by: [id number] Sodium Chloride (Nss 1000ml) 1,000 mls @ 999 mls/hr IV .Q1H1M CRYS Stop: 10/10/21 22:15 Last Infusion: 10/10/21 23:16 Dose: 0 mls/hr Documented by: [id number] Admin: 10/10/21 22:01 Dose: 999 mls/hr Documented by: [id number] Ceftriaxone Sodium (Rocephin) 1,000 mg in 50 mls @ 100 mls/hr IV NOW STA Stop: 10/11/21 01:05 Last Infusion: 10/11/21 01:41 Dose: 0 mls/hr Documented by: [id number] Admin: 10/11/21 01:10 Dose: 100 mls/hr Documented by: [id number] Sodium Chloride (Nss 1000ml) 1,000 mls @ 115 mls/hr IV .Q8H42M CRYS Stop: 10/11/21 21:15 Last Infusion: 10/12/21 01:39 Dose: 0 mls/hr Documented by: [id number] Admin: 10/11/21 17:17 Dose: 115 mls/hr Documented by: [id number] Infusion: 10/11/21 17:16 Dose: 0 mls/hr Documented by: [id number] Admin: 10/11/21 06:07 Dose: 115 mls/hr Documented by: [id number] Daptomycin 450 mg/ Syringe 9 mls @ 4.5 mls/min IV NOW ONE; Protocol Stop: 10/11/21 04:31 Last Admin: 10/11/21 05:13 Dose: 4.5 mls/min Documented by: [id number] Ceftriaxone Sodium 1,000 mg/ (Dextrose) 50 mls @ 100 mls/hr IV Q24H CRYS; Protocol Stop: 10/14/21 05:59 Last Infusion: 10/13/21 06:54 Dose: 0 mls/hr Documented by: [id number] Admin: 10/13/21 06:02 Dose: 100 mls/hr Documented by: [id number] Infusion: 10/12/21 05:58 Dose: 0 mls/hr Documented by: [id number] Admin: 10/12/21 05:18 Dose: 100 mls/hr Documented by: [id number] Sodium Chloride (Nss) 500 mls @ 115 mls/hr IV .Q4H21M CRYS Stop: 10/12/21 21:11 Last Infusion: 10/12/21 17:48 Dose: 0 mls/hr Documented by: [id number] Admin: 10/12/21 13:20 Dose: 115 mls/hr Documented by: [id number] Daptomycin 375 mg/ Syringe 7.5 mls @ 3.75 mls/min IV Q24H CRYS; Protocol Stop: 10/13/21 14:01 Last Admin: 10/13/21 16:15 Dose: 3.75 mls/min Documented by: [id number] Admin: 10/12/21 14:45 Dose: 3.75 mls/min Documented by: [id number] Insulin Aspart (Insulin Aspart Per Unit) 0 units SC ACHS CRYS Stop: 11/10/21 07:29 Last Admin: 10/14/21 19:49 Dose: Not Given Documented by: [id number] Admin: 10/14/21 17:47 Dose: Not Given Documented by: [id number] Admin: 10/14/21 12:44 Dose: 1 units Documented by: [id number] Cosigned by: [id number] Admin: 10/14/21 08:47 Dose: Not Given Documented by: [id number] Admin: 10/13/21 22:30 Dose: 1 units Documented by: [id number] Cosigned by: [id number] Admin: 10/13/21 18:57 Dose: Not Given Documented by: [id number] Admin: 10/13/21 13:07 Dose: Not Given Documented by: [id number] Admin: 10/13/21 07:59 Dose: Not Given Documented by: [id number] Admin: 10/12/21 21:47 Dose: Not Given Documented by: [id number] Cosigned by: [id number] Admin: 10/12/21 18:13 Dose: Not Given Documented by: [id number] Admin: 10/12/21 13:18 Dose: Not Given Documented by: [id number] Admin: 10/12/21 10:14 Dose: 1 units Documented by: [id number] Cosigned by: [id number] Admin: 10/11/21 21:35 Dose: Not Given Documented by: [id number] Cosigned by: [id number] Admin: 10/11/21 17:21 Dose: Not Given Documented by: [id number] Cosigned by: [id number] Admin: 10/11/21 11:38 Dose: Not Given Documented by: [id number] Cosigned by: [id number] Admin: 10/11/21 08:17 Dose: Not Given Documented by: [id number] Cosigned by: [id number] Insulin Glargine (Insulin Glargine Solostar 100 Units/Ml 3 Ml Pen) 6 units SC BID CRYS Stop: 11/10/21 08:59 Last Admin: 10/14/21 19:49 Dose: Not Given Documented by: [id number] Admin: 10/14/21 08:52 Dose: 6 units Documented by: [id number] Cosigned by: [id number] Admin: 10/13/21 23:15 Dose: 6 units Documented by: [id number] Cosigned by: [id number] Admin: 10/13/21 09:05 Dose: 6 units Documented by: [id number] Cosigned by: [id number] Admin: 10/12/21 21:47 Dose: 6 units Documented by: [id number] Cosigned by: [id number] Admin: 10/12/21 10:17 Dose: 6 units Documented by: [id number] Cosigned by: [id number] Admin: 10/11/21 21:37 Dose: 6 units Documented by: [id number] Cosigned by: [id number] Admin: 10/11/21 08:17 Dose: 6 units Documented by: [id number] Cosigned by: [id number] Levothyroxine Sodium ([facility]othy[facility]ine Sodium 75 Mcg Tablet) [facility] Stop: 11/10/21 06:29 Last Admin: 10/15/21 05:35 Dose: 75 mcg Documented by: [id number] Admin: 10/14/21 05:47 Dose: 75 mcg Documented by: [id number] Admin: 10/13/21 06:02 Dose: 75 mcg Documented by: [id number] Admin: 10/12/21 05:58 Dose: 75 mcg Documented by: [id number] Admin: 10/11/21 06:07 Dose: 75 mcg Documented by: [id number] Mirtazapine (Mirtazapine Soltab 15 Mg) 15 mg PO [facility] Stop: 11/10/21 20:59 Last Admin: 10/14/21 20:27 Dose: 15 mg Documented by: [id number] Admin: 10/13/21 22:27 Dose: 15 mg Documented by: [id number] Admin: 10/12/21 21:48 Dose: 15 mg Documented by: [id number] Admin: 10/11/21 21:41 Dose: 15 mg Documented by: [id number] Miscellaneous (Erivedge~Order Awaiting Action) 1 ea N/A QS [facility] Stop: 11/10/21 04:29 Last Admin: 10/14/21 21:58 Dose: Not Given Documented by: [id number] Admin: 10/14/21 15:40 Dose: Not Given Documented by: [id number] Admin: 10/14/21 07:20 Dose: Not Given Documented by: [id number] Admin: 10/14/21 00:43 Dose: Not Given Documented by: [id number] Admin: 10/13/21 18:21 Dose: Not Given Documented by: [id number] Admin: 10/13/21 18:08 Dose: Not Given Documented by: [id number] Admin: 10/13/21 01:20 Dose: Not Given Documented by: [id number] Admin: 10/12/21 17:47 Dose: Not Given Documented by: [id number] Admin: 10/12/21 08:52 Dose: Not Given Documented by: [id number] Admin: 10/12/21 00:20 Dose: Not Given Documented by: [id number] Admin: 10/11/21 14:31 Dose: Not Given Documented by: [id number] Admin: 10/11/21 07:23 Dose: Not Given Documented by: [id number] Admin: 10/11/21 07:22 Dose: Not Given Documented by: [id number] Erivedge 150mg ~ Non -Formulary Patient's Own Med 1 ea PO DAILY CRYS Stop: 11/14/21 08:59 Last Admin: 10/15/21 08:45 Dose: Not Given Documented by: [id number] Nystatin (Nystatin 500,000 Unit Tab) 500,000 units PO QID CRYS Stop: 10/21/21 08:59 Last Admin: 10/15/21 13:03 Dose: 500,000 units Documented by: [id number] Admin: 10/15/21 08:45 Dose: 500,000 units Documented by: [id number] Admin: 10/14/21 20:27 Dose: 500,000 units Documented by: [id number] Admin: 10/14/21 18:12 Dose: Not Given Documented by: [id number] Admin: 10/14/21 12:45 Dose: Not Given Documented by: [id number] Admin: 10/14/21 08:54 Dose: 500,000 units Documented by: [id number] Admin: 10/13/21 22:27 Dose: 500,000 units Documented by: [id number] Admin: 10/13/21 18:08 Dose: 500,000 units Documented by: [id number] Admin: 10/13/21 14:23 Dose: 500,000 units Documented by: [id number] Admin: 10/13/21 09:01 Dose: 500,000 units Documented by: [id number] Admin: 10/12/21 21:48 Dose: 500,000 units Documented by: [id number] Admin: 10/12/21 18:13 Dose: 500,000 units Documented by: [id number] Admin: 10/12/21 13:20 Dose: 500,000 units Documented by: [id number] Admin: 10/12/21 10:18 Dose: 500,000 units Documented by: [id number] Admin: 10/11/21 21:41 Dose: 500,000 units Documented by: [id number] Admin: 10/11/21 18:27 Dose: 500,000 units Documented by: [id number] Admin: 10/11/21 14:11 Dose: 500,000 units Documented by: [id number] Admin: 10/11/21 08:17 Dose: 500,000 units Documented by: [id number] Ropinirole HCl (Ropinirole Hcl 1 Mg Tablet) 1 mg PO HS CRYS Stop: 11/10/21 20:59 Last Admin: 10/14/21 20:27 Dose: 1 mg Documented by: [id number] Admin: 10/13/21 22:27 Dose: 1 mg Documented by: [id number] Admin: 10/12/21 21:48 Dose: 1 mg Documented by: [id number] Admin: 10/11/21 21:41 Dose: 1 mg Documented by: [id number] Ropinirole HCl (Ropinirole Hcl 1 Mg Tablet) 1 mg PO NOW STA Stop: 10/11/21 05:24 Last Admin: 10/11/21 06:07 Dose: 1 mg Documented by: [id number] Imaging Data Radiologist's Impression: Chest X-Ray 10/10/21 21:02 XR chest 1V portable CLINICAL HISTORY: rib pain. . Evaluate cardiopulmonary status COMPARISON STUDY: 07/31/2021 TECHNIQUE: 1 view of the chest FINDINGS: Single frontal view of the chest demonstrates the cardiomediastinal silhouette to be within normal limits. The patient is status post previous cardiothoracic surgery and pacer placement. The lungs are clear of alveolar opacities. There is no evidence for pleural effusion. There is no evidence for vascular congestion. There is no acute osseous pathology. IMPRESSION: No acute cardiopulmonary disease. ACT 112: Negative or not required by law. Electronically signed by: Eliecer Lopez M.D. 10/10/2021 9:38 PM Blood Pressure Blood Pressure Findings: Low blood pressure Blood Pressure Disposition: further management by hospitalist Discharge Plan Visit Data Chief Complaint: Weakness Stated Complaint: WEAK, HASN'T EATEN IN 5 DAYS, FALLING, NECK PAIN ED Provider: Roshni Ross Discharge Problem: DAMON (acute kidney injury), CLL (chronic lymphocytic leukemia), Thrush, Acute dehydration, Adult failure to thrive Patient Disposition: Admitted As Inpatient Discharge Instructions Interventions: ED Discharge Assessment Last Done: 10/11/21 12:30
--- NOTE | 2021-10-11 00:13 | History & Physical Report ---
Date of Service October 11, 2021 Assessment & Plan (1) Weakness: Plan: Mr. Louis is a 76 yo gentleman currently undergoing chemotherapy for CLL who presented for 2 weeks of progressive weakness. - etiology uncertain: concern for infection given immunosuppressed state and elevated lactate - 0/4 SIRS criteria met, however patient may not be able to mount a robust immune response due to immunosuppression - WBC normal. COVID/Flu/RSV neg. CXR clear. UA pending. Blood cultures pending. Procal ordered. - Lack of encephalopathy and signs of meningeal irritation on exam - defer LP at this time - empiric antibiotic therapy started with Daptomycin and Rocephin - thrush on exam - treating with nystatin. Lack of painful swallowing - lower suspicion for candidal esophagitis. (2) DAMON (acute kidney injury): Plan: - Cr at 2.37 on admission, BUN at 63, ratio of 26 - baseline Cr at 0.99 - suspect pre-renal etiology given history of reduce PO intake - IVF ordered - renally dose meds as appropriate - trend CMP (3) Hyperkalemia: Plan: - K 5.5 on admission - moderate - in the setting of DAMON - QRS widening on ekg is new - IVF ordered - hold CHI and spironolactone - repeat CMP in am (4) High serum lactate: Plan: - lactate level 3.0 on admission - improved to 1.1 with IV hydration (5) CLL (chronic lymphocytic leukemia): Plan: - currently undergoing chemo with Dr. Hernandez in [place] - neutrophil count normal on admission (6) Acute on chronic anemia: Plan: - Hgb at 8.3, appears to be at patient's baseline - likely marrow suppresion from chemo - transfuse if < 7 - trend CBC (7) Elevated troponin: Plan: - trop detectable at 0.025 - EKG without signs of ST segment changes - trend q6h (8) Neck pain: Plan: - C-spine xrays obtained to assess for fractures/subluxations - Tylenol prn for pain (9) Thrombocytopenia: Plan: - platelets at 55k/Ul - likely secondary to chemo --> marrow suppression - will hold off on chemo DVT ppx (technically permitted with platelets > 50k/Ul), can reconsider based on subsequent CBCs (10) COPD (chronic obstructive pulmonary disease): Plan: - 120 pack year smoking history (quit 12 years ago) - Unknown GOLD class or previous PFTs, not on home O2 therapy. - Albuterol inhaler PRN SOB/wheezing - Would likely benefit from maintenance inhaler regimen - consider initiation of Spiriva vs. deferring to PCP (11) CHF (congestive heart failure): Plan: - HRrEF, EF 25% on echo from 07/2021 - hold CHI in setting of DAMON - hold spironolactone in setting of hyperkalemia - hold furosemide as blood pressure is soft and patient at risk for sepsis (12) CAD (coronary artery disease): Plan: - s/p CABG by Dr. Marvin in 04/2020 - continue home dose statin - hold CHI in setting of DAMON - not on ASA due to thrombocytopenia - heart healthy diet (13) Thrush: Plan: - appreciated on exam - risk factor is chemotherapy - oral nystatin swish and swallow ordered (14) Poor appetite: Plan: - chronic - albumin low at 3.2 - consider nutrition consult - boost ordered - patient says food tastes bad - could be secondary to chemo regimen (15) Type II diabetes mellitus: Plan: - A1c 6.9% in 07/2021 - SSI + basal bolus insulin while hospitalized - continue home regimen at discharge - carb consistent diet (16) Atrial fibrillation: Plan: - history of paroxysmal Afib - EKG showing NSR on admission - continue amiodarone for rhythm control - not on a rate control agent - not on anticoagulation due to thrombocytopenia despite [id number] score of 5 (17) Depression: Plan: - continue home dose lexapro and remernon (18) Hypothyroidism: Plan: - continue home dose Synthroid (19) Basal cell carcinoma: Plan: - patient will use his own Erivedge Diet: Low K, heart healthy, carb consistent Dispo: Med/tele. PT/OT ordered Dvt ppx: SCD, encourage ambulation Code: Full, I discussed with patient History of Present Illness Primary Care Provider: Sky Sylvainkalyan Mr. Louis is a 76 yo gentleman with a PMHx of CLL on chemotherapy (last dose was several weeks ago), who came in for evaluation of 2 weeks of progressive weakness. He also reports poor appetite - although this has been chronic since his in 06/2021. He says his appetite is weak because food tastes bland to him. He denies any fever/chills, sore throat, painful swallowing, congestion, nausea/vomiting, diarrhea, or urinary symptoms. He does state his neck hurts - this first started after falling out of bed one week ago. In the ED, he was afebrile with a normal HR. His BP was 97/53. He was breathing well on room air. His WBC was normal, as was his neutrophil count. His Hgb was 8.3. Platelets at 55k/uL. INR 1.2. Na 132. K at 5.5. Cr at 2.37, BUN at 61. Lactate at 3.0. Trop at 0.025. AST at 48, ALT normal. COVID 19 neg, Flu neg, RSV neg. UA ordered. Blood cultures pending. CXR showing no acute process. EKG showing NSR - no prominent T waves, QRS was wide. He was give 1 liter of NSS. Allergies Allergy/AdvReac Type Severity Reaction Status Date / Time No Known Allergies Allergy Verified 10/10/21 22:01 Home Medications Medication Instructions Recorded Confirmed Type atorvastatin 40 mg tablet 40 mg PO HS 07/31/21 10/10/21 History escitalopram oxalate 20 mg tablet 20 mg PO DAILY 07/31/21 10/10/21 History (Lexapro) furosemide 40 mg tablet 40 mg PO DAILY 07/31/21 10/10/21 History insulin degludec 100 unit/mL (3 8 unit SUBCUT HS 07/31/21 10/10/21 History mL) subcutaneous pen (Tresiba FlexTouch U-100 insulin) levothyroxine 75 mcg tablet 75 mcg PO DAILY 07/31/21 10/10/21 History (Euthyrox) ropinirole 1 mg tablet 1 mg PO HS 07/31/21 10/10/21 History spironolactone 25 mg tablet 25 mg PO DAILY 07/31/21 10/10/21 History tramadol 50 mg tablet 50 mg PO Q6 PRN 07/31/21 10/10/21 History vismodegib 150 mg capsule 150 mg PO DAILY 07/31/21 10/10/21 History (Erivedge) amiodarone 200 mg tablet 200 mg PO BID 10/10/21 10/10/21 History hydroxyzine HCl 10 mg tablet 10 mg PO BID PRN 10/10/21 10/10/21 History lisinopril 5 mg tablet 5 mg PO DAILY 10/10/21 10/10/21 History mirtazapine 15 mg disintegrating 15 mg PO HS 10/10/21 10/10/21 History tablet Past Med/Surg History Medical History CAD (coronary artery disease) CHF (congestive heart failure) COPD (chronic obstructive pulmonary disease) Depression Leukemia Surgical History History of coronary artery bypass graft Social History Smoking Status: Former smoker Tobacco Type: Cigarettes Cigarettes Per Day: former smoker, 3 packs per day; Second Hand Exposure: Yes; Hx Alcohol Use: No Hx Substance Use: No Preferred Language: Bulgarian Communication Ability: Effective [place] Demonstrator Required: No Beliefs That Will Affect Care: None Current Living Situation: Family Current Living Situation Comment: with daughter Feels Safe at Home: Yes Assistive Devices: Glasses Review of Systems Constitutional: + weakness; no fever and no chills Gastrointestinal: no nausea, no vomiting and no diarrhea/loose stools Genitourinary: no dysuria Psychiatric: no anhedonia Physical Exam Constitutional: WD/WN, vitals as above + frail appearing and cooperative; no acute distress Eyes: PERRL, conjunctivae normal, anicteric sclerae ENMT: external ear and nose normal, oropharynx normal Mouth: + oral mucosal abnormality (white plaques on tongue ) Neck: normal visual inspection and trachea midline Respiratory: normal respiratory effort; no respiratory distress and no cough Auscultation: + rhonchi; no crackles Cardiovascular: Rate/Rhythm: regular rate and regular rhythm Heart Sounds: normal S1 and normal S2; no murmur Gastrointestinal (Abdomen): normal bowel sounds, soft, nontender, no hepatosplenomegaly Musculoskeletal: Head/Neck/Chest: normocephalic and head atraumatic C-spine spinous processes tender to palpation Skin: no rashes, warm and dry Neurologic: Negative Kernigs and Brudzinskis Psychiatric: A+Ox3, euthymic affect Lymphatic: no cervical lymphadenopathy Results & Data Results & Data ([facility]) Vital Signs (Past 12 Hours) Vital Signs Temp Pulse Pulse Resp BP BP Pulse Ox 10/11/21 00:08 80 18 97/53 L 95 10/10/21 20:57 37.0 C 90 20 93/43 L 99 Code Status & VTE Plan VTE Prophylaxis Plan VTE Prophylaxis will be ordered: No Supervising Physician Co-Signing Physician Notes Patient seen and examined, chart reviewed, case discussed with Dr. Akhtar and I agree with her assessment and plan as above. In brief, patient is a 76yo male presenting with poor po intake - food tastes poor to him. Also with posterior neck pain. Patient states symptoms have been ongoing x 2 weeks. He did fall out of bed 2 weeks ago On exam he is afebrile, HD stable Thin, cachectic, NAD Skin-no rash or lesions HEENT - edentulous, dry mm +S1/S2, regular, no m/r/g Lungs - CTA Abd +BS, soft, NT/ND Ext pain in posterior neck Labs and images reviewed Assessment/Plan -IVF, monitor renal function -Check c-spine x-ray -REmainder of plan as above Resident Activity Tracking Resident Involvement: Resident Care Provided Care Provided: Adult [facility] Medicine
[2021-10-11 00:28] LABS: Appearance Urine Clear (Clear); Bilirubin Urine Negative (Negative); Blood Urine Negative (Negative); Color Urine Yellow; Glucose Urine UA Negative (Negative); Ketones Urine Negative (Negative); Leukocyte Esterase Urine Negative (Negative); Nitrite Urine Negative (Negative); Protein Urine Negative (Negative); Specific Gravity Urine 1.016 (1.000-1.030); Urobilinogen Urine Negative (Negative)
[2021-10-11] MEDS ORDERED: cefTRIAXone SODIUM 1,000 MG/50 ML BAG IV STA (00:36)
[2021-10-11] MEDS ORDERED: GLUCOSE 10 TABS/TUBE PO PRN (03:52)
[2021-10-11] MEDS ORDERED: CARBOHYDRATES FOR HYPOGLYCEMIA PO PRN (03:52)
[2021-10-11] MEDS ORDERED: GLUCAGON FOR INJ 1 MG VIAL SQ PRN (03:52)
[2021-10-11] MEDS ORDERED: POLYETHYLENE (MIRALAX) 17 GM PACK PO PRN (03:52)
[2021-10-11] MEDS ORDERED: ACETAMINOPHEN 325 MG TAB PO PRN (03:52)
[2021-10-11] MEDS ORDERED: traMADol HCL 50 MG TABLET PO PRN (03:52)
[2021-10-11] MEDS ORDERED: ONDANSETRON INJ 2 MG/ML 2 ML VIAL IV PRN (03:52)
[2021-10-11] MEDS ORDERED: hydrOXYzine HCl 10 MG TAB PO PRN (03:52)
[2021-10-11] MEDS ORDERED: DEXTROSE 50% 50 ML SYRINGE IV PRN (03:52)
[2021-10-11] MEDS ORDERED: GLUCOSE 40% GEL 15 GM TUBE PO PRN (03:52)
[2021-10-11] MEDS ORDERED: DAPTOmycin 450 MG in SYRINGE 0 ML IV ONE (04:30)
[2021-10-11] MEDS ORDERED: rOPINIRole HCL 1 MG TABLET PO STA (05:23)
[2021-10-11 05:41] LABS: BUN Creatinine Ratio 30.3 (10-20); Calcium 8.6 mg/dl (8.5-10.1); Creatinine Clr Calc Pharmacy 28.9 ml/min; Est GFR (African American) 38.6 ml/min; Est GFR (Non-African American) 33.3 ml/min; Potassium 5.2 mmol/L (3.5-5.1)
[2021-10-11 05:46] LABS: Albumin Globulin Ratio 0.8 (0.9-2); Bilirubin,Total 0.3 mg/dl (0.2-1); Globulin 3.7 gm/dl (2.5-4.0); Total Protein 6.7 gm/dl (6.4-8.2); Troponin I 0.03 ng/ml (0-0.045)
--- NOTE | 2021-10-11 05:58 | Billing Data ---
Date of Service October 11, 2021 Coding Level of Care Code 56812 Initial Inpt Care Lvl 3
[2021-10-11] MEDS: SODIUM CHLORIDE 0.9% 1000ML 1,000 ML IV SCH ×2 (06:07→17:17)
[2021-10-11] MEDS: LEVOTHYROXINE SODIUM 75 MCG TABLET PO SCH (06:07)
[2021-10-11 06:13] LABS: Mean Corpuscular Hgb Conc 30.6 g/dL (32-36); Platelet Count 33 K/uL (130-400)
[2021-10-11 06:14] LABS: Anisocytosis Present; Eosinophils # (auto) 0.02 K/uL (0-0.5); Eosinophils % (auto) 0.6 %; Hematocrit (blood only) 20.9 % (42-52); Hemoglobin 6.4 g/dL (14.0-18.0); Immature Granulocytes # (auto) 0.25 K/uL (0.00-0.02); Immature Granulocytes % (auto) 7.8 %; Lymphocytes # (auto) 0.61 K/uL (1.2-3.4); Lymphocytes % (auto) 19.1 %; Mean Corpuscular Hemoglobin 28.8 pg (25-34); Mean Corpuscular Volume 94.1 fL (80-100); Monocytes # (auto) 0.62 K/uL (0.11-0.59); Monocytes % (auto) 19.4 %; Neutrophils % (auto) 53.1 %; Ovalocytes 1+; Platelet Estimate Decreased (Normal); RDW Coefficient of Variation 22.7 % (11.5-14.5); Red Blood Count 2.22 M/uL (4.7-6.1)
[2021-10-11] MEDS ORDERED: SODIUM CHLORIDE 0.9% 250 ML IV PRN (06:30)
--- NOTE | 2021-10-11 07:39 | Hospitalist Progress Note ---
Date of Service October 11, 2021 Assessment & Plan (1) Weakness: Plan: Mr. Louis is a 76 yo gentleman currently undergoing chemotherapy for CLL who presented for 2 weeks of progressive weakness. Acute on chronic anemia -- likely marrow suppression from chemo - Hgb at 8.3 on admission -- around baseline - Recheck in the AM after IV hydration showing Hgb at 6.4 - Patient consented and ordered for transfusion of 2U PRBCs - Recheck CBC 2-4 hours after transfusion - transfuse if < 7 - trend CBC Weakness - etiology uncertain: concern for infection given immunosuppressed state and elevated lactate - 0/4 SIRS criteria met, however patient may not be able to mount a robust immune response due to immunosuppression - WBC normal. COVID/Flu/RSV neg. CXR clear. UA negative. Procal negative. Blood cultures pending. - Lack of encephalopathy and signs of meningeal irritation on exam - defer LP - Continue empiric antibiotic therapy with Daptomycin and Rocephin until BCx neg x48h - thrush on exam - treating with nystatin. Lack of painful swallowing - lower suspicion for candidal esophagitis. DAMON (acute kidney injury) -- suspect pre-renal etiology given history of reduce PO intake - baseline Cr at 0.99 - Cr at 2.37 on admission, BUN at 63, ratio of 26 - Cr and BUN downtrending today - Continue IVF - renally dose meds as appropriate - trend BMP Hyperkalemia -- in the setting of DAMON as above - K 5.5 on admission -- 5.2 on AM recheck - QRS widening on EKG is new - Continue IVF - hold CHI and spironolactone - repeat after transfusion High serum lactate: - lactate level 3.0 on admission - improved to 1.1 with IV hydration CLL (chronic lymphocytic leukemia): - currently undergoing chemo with Dr. Hernandez in [place] - neutrophil count normal on admission Elevated troponin: - trop detectable at 0.025, remained detectable and slightly elevated to 0.030 in AM - EKG without signs of ST segment changes - Continue to trend Neck pain: - C-spine xrays show no acute abnormality. Degenerative disc and degenerative joint disease. - Tylenol prn for pain Thrombocytopenia: - platelets at 55k/Ul -- 33 on recheck this AM - likely secondary to chemo --> marrow suppression - will hold off on chemo DVT ppx (technically permitted with platelets > 50k/Ul), can reconsider based on subsequent CBCs COPD (chronic obstructive pulmonary disease): - 120 pack year smoking history (quit 12 years ago) - Unknown GOLD class or previous PFTs, not on home O2 therapy. - Albuterol inhaler PRN SOB/wheezing - Would likely benefit from maintenance inhaler regimen - consider initiation of Spiriva vs. deferring to PCP CHF (congestive heart failure): - HRrEF, EF 25% on echo from 07/2021 - hold CHI in setting of DAMON - hold spironolactone in setting of hyperkalemia - hold furosemide as blood pressure is soft and patient at risk for sepsis CAD (coronary artery disease): - s/p CABG by Dr. Marvin in 04/2020 - continue home dose statin - hold CHI in setting of DAMON - not on ASA due to thrombocytopenia - heart healthy diet Thrush: - appreciated on exam - risk factor is chemotherapy - oral nystatin swish and swallow Poor appetite: - chronic - albumin low at 3.2 - nutrition consulted - patient says food tastes bad - could be secondary to chemo regimen and/or thrush Type II diabetes mellitus: - A1c 6.9% in 07/2021 - SSI + basal bolus insulin while hospitalized - continue home regimen at discharge - carb consistent diet Atrial fibrillation: - history of paroxysmal Afib - EKG showing NSR on admission - continue amiodarone for rhythm control - not on a rate control agent - not on anticoagulation due to thrombocytopenia despite chads-vasc score of 5 Depression: - continue home dose Lexapro and Remeron Hypothyroidism: - continue home dose Synthroid Basal cell carcinoma: - patient will use his own Erivedge Diet: Low K, heart healthy, carb consistent Dispo: Med/tele. PT/OT ordered Dvt ppx: SCD, encourage ambulation Code: Full (2) CLL (chronic lymphocytic leukemia): (3) Acute on chronic anemia: (4) COPD (chronic obstructive pulmonary disease): (5) CHF (congestive heart failure): (6) CAD (coronary artery disease): (7) Depression: (8) Hyperkalemia: (9) Thrush: (10) Thrombocytopenia: (11) Type II diabetes mellitus: (12) Atrial fibrillation: (13) Neck pain: (14) Elevated troponin: (15) DAMON (acute kidney injury): (16) Hypothyroidism: Admission and Anticipated Discharge Date Admission Date: October 11, 2021 Supervising Physician Co-Signing Physician Notes I also saw the patient with the resident physician and confirmed wyman portions of the history and physical examination. The patient was also seen this date by Dr. Calles, the admitting attending; please see her attestation for additional information. Upon recheck this afternoon, the patient is just starting to receive his second unit of packed red blood cells. He complains of fatigue, but otherwise has no complaints. Repeat CBC and BMP pending for later today. Subjective Seen at bedside this AM. He had been consented for blood earlier in the morning. Transfusion yet to have begun. He states he is feeling tired but overall no worse than when he came in. Denies fever, chills, n/v, CP, palp, SOB, cough, abd pain, dysuria, diarrhea. Review of Systems Review of Systems: per subjective Physical Exam Physical Exam: GENERAL: A&Ox3. NAD. Frail. HEENT: PERRL, EOMI. Moist mucous membranes. White patches on tongue. NECK: No lymphadenopathy. CHEST/LUNGS: CTAB A/P. No crackles, wheezes, rales, rhonchi. HEART: RRR. No m/g/r. No carotid bruits. ABDOMEN: NT/ND, soft. BS+ x4 EXTREMITIES: No cyanosis, no clubbing, no edema SKIN: Warm and dry. No rashes or lesions. PSYCHIATRIC: Euthymic affect, no SI, no pressured speech, no hallucinations NEUROLOGIC: Moves all 4 extremities. Sensation intact. CN II-XII grossly intact. Results & Data Results & Data ([facility]) Vital Signs (Past 12 Hours) Vital Signs Temp Pulse Pulse Resp BP BP BP 10/11/21 06:13 74 16 90/46 L 90/46 L 10/11/21 00:08 80 18 97/53 L 10/10/21 20:57 37.0 C 90 20 93/43 L Pulse Ox 10/11/21 06:13 96 10/11/21 00:08 95 10/10/21 20:57 99 Resident Activity Tracking Resident Involvement: Resident Care Provided Care Provided: Adult [facility] Medicine
--- NOTE | 2021-10-11 07:50 | Electrocardiogram Report ---
Test Reason : Blood Pressure : / mmHG Vent. Rate : 066 BPM Atrial Rate : 066 BPM P-R Int : 130 ms QRS Dur : 172 ms QT Int : 510 ms P-R-T Axes : 095 051 031 degrees QTc Int : 534 ms Poor data quality, interpretation may be adversely affected Normal sinus rhythm Non-specific intra-ventricular conduction block Abnormal ECG When compared with ECG of 02-AUG-2021 12:52, QRS duration has increased T wave inversion no longer evident in Anterior leads QT has lengthened Confirmed by Judson Knott ([id number]) on 10/11/2021 7:50:17 AM Referred By: REFERRED SELF Confirmed By:Timo Knott
[2021-10-11 07:54] LABS: Hypogranular Neutrophils 1+
--- NOTE | 2021-10-11 08:09 | XRay Report ---
XR cervical spine 2 or 3V CLINICAL HISTORY: neck pain. COMPARISON STUDY: No previous studies for comparison. TECHNIQUE: 4 Views of the cervical Spine FINDINGS: Bones: The cervicothoracic junction is not visualized. There is straightening of expected cervical lo rdosis. There is no evidence for fracture or malalignment. The heights of the vertebral bodies are ma intained. There are no lytic or blastic lesions present. Disc spaces: There is moderate to marked disc space narrowing at C4-5, C5-6 and C6-7 with minimal end plate sclerosis and osteophyte formation. Apophyseal joints: Degenerative apophyseal joint disease is also seen involving the lower 3 disc spac e levels. Soft tissues: The paraspinal soft tissues are within normal limits. IMPRESSION: No acute abnormality. Degenerative disc and degenerative joint disease. The cervical thoracic junctio n is not well imaged on this study. ACT 112: Negative or not required by law. Electronically signed by: Eliecer Lopez M.D. 10/11/2021 8:07 AM
[2021-10-11] MEDS: AMIODARONE 200 MG TAB PO SCH ×2 (08:17→21:41)
[2021-10-11] MEDS: INSULIN ASPART PER UNIT SC SCH ×4 (08:17→21:35)
[2021-10-11] MEDS: INSULIN GLARGINE SOLOSTAR 100 UNITS/ML 3 ML PEN SC SCH ×2 (08:17→21:37)
[2021-10-11] MEDS: ESCITALOPRAM OXALATE 20 MG TAB PO SCH (08:17)
[2021-10-11] MEDS: NYSTATIN 500,000 UNIT TAB PO SCH ×4 (08:17→21:41)
[2021-10-11 17:56] LABS: BUN Creatinine Ratio 27.7 (10-20); Calcium 8.3 mg/dl (8.5-10.1); Creatinine Clr Calc Pharmacy 35.1 ml/min; Est GFR (African American) 48.9 ml/min; Est GFR (Non-African American) 42.2 ml/min; Potassium 4.8 mmol/L (3.5-5.1)
[2021-10-11 18:00] LABS: Troponin I 0.038 ng/ml (0-0.045)
[2021-10-11 20:02] LABS: Mean Corpuscular Hgb Conc 33.1 g/dL (32-36); Platelet Count 26 K/uL (130-400)
[2021-10-11 20:03] LABS: Anisocytosis Present; Hemoglobin 8.6 g/dL (14.0-18.0); Immature Granulocytes # (auto) 0.16 K/uL (0.00-0.02); Immature Granulocytes % (auto) 5.1 %; Lymphocytes % (auto) 22.3 %; Mean Corpuscular Hemoglobin 30.3 pg (25-34); Mean Corpuscular Volume 91.5 fL (80-100); Monocytes # (auto) 0.28 K/uL (0.11-0.59); Monocytes % (auto) 8.9 %; Neutrophils % (auto) 63.7 %; Ovalocytes 1+; RDW Coefficient of Variation 19.5 % (11.5-14.5); RDW Standard Deviation 63.8 fL (36.4-46.3); Red Blood Count 2.84 M/uL (4.7-6.1); White Blood Count 3.14 K/uL (4.8-10.8)
[2021-10-11] MEDS: rOPINIRole HCL 1 MG TABLET PO SCH (21:41)
[2021-10-11] MEDS: ATORVASTATIN 40 MG TAB PO SCH (21:41)
[2021-10-11] MEDS: MIRTAZAPINE SOLTAB 15 MG PO SCH (21:41)
[2021-10-12] MEDS ORDERED: cefTRIAXone SODIUM 1000MG/50ML D5W IV ONE (05:17)
[2021-10-12] MEDS: cefTRIAXone SODIUM 1,000 MG in DEXTROSE 5% 50 ML IV SCH (05:18)
[2021-10-12] MEDS: LEVOTHYROXINE SODIUM 75 MCG TABLET PO SCH (05:58)
[2021-10-12 07:05] LABS: Calcium 9.1 mg/dl (8.5-10.1); Creatinine Clr Calc Pharmacy 38.1 ml/min; Est GFR (African American) 52.9 ml/min; Est GFR (Non-African American) 45.6 ml/min
--- NOTE | 2021-10-12 07:33 | Hospitalist Progress Note ---
Date of Service October 12, 2021 Assessment & Plan (1) Weakness: Plan: Mr. Louis is a 76 yo gentleman currently undergoing chemotherapy for CLL who presented for 2 weeks of progressive weakness. Acute on chronic anemia -- likely marrow suppression from chemo - Hgb at 8.3 on admission -- around baseline - 10/11: Hgb at 6.4. Transfudes 2U PRBCs. Recheck at 8.6 - Remains stable today - transfuse if < 7 - trend CBC Weakness - etiology uncertain: concern for infection given immunosuppressed state and elevated lactate - 0/4 SIRS criteria met, however patient may not be able to mount a robust immune response due to immunosuppression - WBC normal. COVID/Flu/RSV neg. CXR clear. UA negative. Procal negative. - Blood culture growing Gram-positive cocci in clusters that are negative for MRSA PCR in 1 out of 2 bottles - We will discontinue daptomycin as MRSA PCR negative, continue ceftriaxone for now pending further culture results DAMON (acute kidney injury) -- suspect pre-renal etiology given history of reduce PO intake - baseline Cr at 0.99 - Cr at 2.37 on admission, BUN at 63, ratio of 26 - Cr and BUN continue downtrending today - Continue IVF -- monitor fluid status in the setting of HFrEF - renally dose meds as appropriate - trend BMP Hyperkalemia -- resolved - K 5.5 on admission -- 5.2 on AM recheck - Holding CHI and spironolacton -- remains normotensive - Normalized on last two checks - Monitor BMP High serum lactate - resolved - lactate level 3.0 on admission - improved to 1.1 with IV hydration CLL (chronic lymphocytic leukemia): - currently undergoing chemo with Dr. Hernandez in [place] - neutrophil count normal on admission Elevated troponin: - trop detectable at 0.025, remained detectable and slightly elevated to 0.030 in AM - EKG without signs of ST segment changes - Continue to trend Neck pain: - C-spine xrays show no acute abnormality. Degenerative disc and degenerative joint disease. - Tylenol prn for pain Thrombocytopenia: - platelets at 55k/Ul --> 33 --> 26 --> 27 - likely secondary to chemo --> marrow suppression - will hold off on chemo DVT ppx, can reconsider based on subsequent CBCs COPD (chronic obstructive pulmonary disease): - 120 pack year smoking history (quit 12 years ago) - Unknown GOLD class or previous PFTs, not on home O2 therapy. - Albuterol inhaler PRN SOB/wheezing - Would likely benefit from maintenance inhaler regimen - consider initiation of Spiriva vs. deferring to PCP CHF (congestive heart failure): - HFrEF, EF 25% on echo from 07/2021 - hold CHI in setting of DAMON - hold spironolactone in setting of hyperkalemia - hold furosemide as blood pressure is soft and patient at risk for sepsis CAD (coronary artery disease): - s/p CABG by Dr. Marvin in 04/2020 - continue home dose statin - hold CHI in setting of DAMON - not on ASA due to thrombocytopenia - heart healthy diet Thrush: - appreciated on exam - risk factor is chemotherapy - oral nystatin swish and swallow Poor appetite: - chronic - albumin low at 3.2 - nutrition consulted - patient says food tastes bad - could be secondary to chemo regimen and/or thrush Type II diabetes mellitus: - A1c 6.9% in 07/2021 - SSI + basal bolus insulin while hospitalized - continue home regimen at discharge - carb consistent diet Atrial fibrillation: - history of paroxysmal Afib - EKG showing NSR on admission - continue amiodarone for rhythm control - not on a rate control agent - not on anticoagulation due to thrombocytopenia despite chads-vasc score of 5 Depression: - continue home dose Lexapro and Remeron Hypothyroidism: - continue home dose Synthroid Basal cell carcinoma: - patient will use his own Erivedge Diet: Low K, heart healthy, carb consistent Dispo: Med/tele. PT/OT ordered Dvt ppx: SCD, encourage ambulation Code: Full (2) CLL (chronic lymphocytic leukemia): (3) Acute on chronic anemia: (4) COPD (chronic obstructive pulmonary disease): (5) CHF (congestive heart failure): (6) CAD (coronary artery disease): (7) Depression: (8) Hyperkalemia: (9) Thrush: (10) Thrombocytopenia: (11) Type II diabetes mellitus: (12) Atrial fibrillation: (13) Neck pain: (14) Elevated troponin: (15) DAMON (acute kidney injury): (16) Hypothyroidism: Admission and Anticipated Discharge Date Admission Date: October 11, 2021 Supervising Physician Co-Signing Physician Notes I also saw the patient with the resident physician and confirmed wyman portions of the history and physical examination. I agree with the impression and plan as noted in the resident documentation. He remains in the emergency department holding area. He tells us that he feels a little better today compared to yesterday. EXAM 109/57, 79, 18, 36.6, 94% on room air Alert and oriented. Heart regular rate and rhythm. No murmurs appreciated Lungs with nonlabored respirations, no wheezing, rhonchi, or rales. DATA Hemoglobin stable at 8.6, platelet count 27,000 Sodium 135, chloride 110, BUN 36, creatinine 1.48 1 of 2 blood cultures showing gram-positive cocci in clusters Blood culture staph aureus PCR negative Blood culture MRSA PCR negative Weakness, suspect multifactorial Anemia, acute on chronic Bacteremia CLL undergoing chemotherapy Thrombocytopenia Discontinue daptomycin, continue ceftriaxone Await additional cultures Transthoracic echocardiogram Closely monitor platelet count Else per resident documentation Subjective Seen at bedside this AM. Reports feeling much better. Said he had mild dizziness but overall well. No CP, SOB, palpitations, cough, n/v, abd pain, diarrhea, fever, chills. Review of Systems Review of Systems: Per subjective Physical Exam Physical Exam: GENERAL: A&Ox3. NAD. Frail. CHEST/LUNGS: CTAB A/P. No crackles, wheezes, rales, rhonchi. HEART: RRR. No m/g/r. No carotid bruits. ABDOMEN: NT/ND, soft. BS+ x4 EXTREMITIES: No cyanosis, no clubbing, no edema SKIN: Warm and dry. No rashes or lesions. PSYCHIATRIC: Euthymic affect, no SI, no pressured speech, no hallucinations Results & Data Results & Data ([facility]) Vital Signs (Past 12 Hours) Vital Signs Pulse Resp BP Pulse Ox Pulse Ox 10/12/21 06:27 80 16 126/66 94 10/12/21 05:07 80 18 113/57 L 92 10/12/21 04:00 97 10/12/21 03:05 99 H 18 139/71 97 10/12/21 01:06 80 18 119/61 10/12/21 00:05 86 16 119/61 95 10/11/21 23:18 85 22 100/53 L 94 Resident Activity Tracking Resident Involvement: Resident Care Provided Care Provided: Adult [facility] Medicine
[2021-10-12 07:34] LABS: Anisocytosis Present; Hematocrit (blood only) 26.3 % (42-52); Hemoglobin 8.6 g/dL (14.0-18.0); Hypogranular Neutrophils 2+; Immature Granulocytes # (auto) 0.23 K/uL (0.00-0.02); Immature Granulocytes % (auto) 6.1 %; Lymphocytes % (auto) 18.7 %; Mean Corpuscular Hemoglobin 29.8 pg (25-34); Mean Corpuscular Hgb Conc 32.7 g/dL (32-36); Monocytes # (auto) 0.68 K/uL (0.11-0.59); Monocytes % (auto) 18.2 %; Neutrophils # (auto) 2.13 K/uL (1.4-6.5); Ovalocytes 1+; Platelet Count 27 K/uL (130-400); Platelet Estimate SIGNIFIC DECREASED (Normal); RDW Coefficient of Variation 20.4 % (11.5-14.5); RDW Standard Deviation 65.6 fL (36.4-46.3); Red Blood Count 2.89 M/uL (4.7-6.1); White Blood Count 3.74 K/uL (4.8-10.8)
[2021-10-12] MEDS: INSULIN ASPART PER UNIT SC SCH ×4 (10:14→21:47)
[2021-10-12] MEDS: AMIODARONE 200 MG TAB PO SCH ×2 (10:16→21:45)
[2021-10-12] MEDS: ESCITALOPRAM OXALATE 20 MG TAB PO SCH (10:17)
[2021-10-12] MEDS: INSULIN GLARGINE SOLOSTAR 100 UNITS/ML 3 ML PEN SC SCH ×2 (10:17→21:47)
[2021-10-12] MEDS: NYSTATIN 500,000 UNIT TAB PO SCH ×4 (10:18→21:48)
[2021-10-12] MEDS ORDERED: SODIUM CHLORIDE 0.9% 500 ML IV SCH (12:30)
[2021-10-12] MEDS: DAPTOmycin 375 MG in SYRINGE 0 ML IV SCH (14:45)
--- NOTE | 2021-10-12 16:22 | XCELERA ---
[id number]
[2021-10-12] MEDS: ATORVASTATIN 40 MG TAB PO SCH (21:46)
[2021-10-12] MEDS: rOPINIRole HCL 1 MG TABLET PO SCH (21:48)
[2021-10-12] MEDS: MIRTAZAPINE SOLTAB 15 MG PO SCH (21:48)
[2021-10-13 05:38] LABS: Mean Corpuscular Hgb Conc 33.1 g/dL (32-36)
[2021-10-13 05:50] LABS: Hematocrit (blood only) 28.4 % (42-52); Hemoglobin 9.4 g/dL (14.0-18.0); Mean Corpuscular Hemoglobin 30.3 pg (25-34); Mean Corpuscular Volume 91.6 fL (80-100); RDW Coefficient of Variation 20.9 % (11.5-14.5); RDW Standard Deviation 67.2 fL (36.4-46.3); White Blood Count 4.72 K/uL (4.8-10.8)
[2021-10-13] MEDS ORDERED: DAPTOmycin 450 MG in SYRINGE 0 ML IV SCH (06:00)
[2021-10-13] MEDS: cefTRIAXone SODIUM 1,000 MG in DEXTROSE 5% 50 ML IV SCH (06:02)
[2021-10-13] MEDS: LEVOTHYROXINE SODIUM 75 MCG TABLET PO SCH (06:02)
[2021-10-13 06:09] LABS: BUN Creatinine Ratio 19.5 (10-20); Creatinine Clr Calc Pharmacy 47.8 ml/min; Est GFR (African American) 70.3 ml/min; Est GFR (Non-African American) 60.6 ml/min; Potassium 4.4 mmol/L (3.5-5.1)
[2021-10-13 06:29] LABS: Platelet Count 28 K/uL (130-400)
[2021-10-13 06:36] LABS: Anisocytosis Present; Basophils # (auto) 0.01 K/uL (0-0.2); Basophils % (auto) 0.2 %; Immature Granulocytes # (auto) 0.28 K/uL (0.00-0.02); Immature Granulocytes % (auto) 5.9 %; Lymphocytes # (auto) 0.81 K/uL (1.2-3.4); Lymphocytes % (auto) 17.2 %; Monocytes # (auto) 0.76 K/uL (0.11-0.59); Monocytes % (auto) 16.1 %; Neutrophils # (auto) 2.86 K/uL (1.4-6.5); Neutrophils % (auto) 60.6 %; Ovalocytes 1+
--- NOTE | 2021-10-13 07:48 | Hospitalist Progress Note ---
Date of Service October 13, 2021 Assessment & Plan (1) Weakness: Plan: Mr. Louis is a 76 yo gentleman currently undergoing chemotherapy for CLL who presented for 2 weeks of progressive weakness. Acute on chronic anemia -- likely marrow suppression from chemo - Hgb at 8.3 on admission -- around baseline - 10/11: Hgb at 6.4. Transfudes 2U PRBCs. Recheck at 8.6 - Remains stable - transfuse if < 7 - trend CBC Weakness - Likely multifactorial with multiple chronic issues and his presenting anemia -- at this point less likely infection with blood cultures more likely a contaminant - WBC normal. COVID/Flu/RSV neg. CXR clear. UA negative. Procal negative. - Blood culture growing coag negative staph not lugdunensis in 1/2 bottles -- PCR neg for MRSA or staph aureus - Antibiotics to be discontinued today -- monitor clinically for signs of infection - Echo 10/12: LV function severely reduced (EF 20 to 25%), moderate LV dilation, severe left atrium dilation, mild aortic valve sclerosis, no significant aortic stenosis, moderate to severe mitral regurg, elevated RV systolic pressure at 40 to 50 mmHg - No mention of valvular vegetation, but could consider SHARIF for definitive rule-out -- will await further results of blood cultures for now - PT/OT evaluated -- rec for Return home with daughter for assistance and possibly home health; case management following DAMON (acute kidney injury) -- suspect pre-renal etiology given history of reduce PO intake, - Resolved - baseline Cr at 0.99 - Cr at 2.37 on admission, BUN at 63, ratio of 26 - Cr now normalized - IVF DC'd - trend BMP Hyperkalemia -- resolved - K 5.5 on admission - Holding CHI and spironolactone -- remains normotensive - Normalized on last two checks - Monitor BMP High serum lactate - resolved - lactate level 3.0 on admission - improved to 1.1 with IV hydration CLL (chronic lymphocytic leukemia): - currently undergoing chemo with Dr. Hernandez in [place] - neutrophil count normal on admission Elevated troponin: - trop detectable on several checks but not elevated, eventually downtrending - EKG without signs of ST segment changes Neck pain: - C-spine xrays show no acute abnormality. Degenerative disc and degenerative joint disease. - Tylenol prn for pain Thrombocytopenia: - platelets stably low -- slowly starting to trend up - Will monitor for changes - likely secondary to chemo --> marrow suppression - will hold off on chemo DVT ppx, can reconsider based on subsequent CBCs COPD (chronic obstructive pulmonary disease): - 120 pack year smoking history (quit 12 years ago) - Unknown GOLD class or previous PFTs, not on home O2 therapy. - Albuterol inhaler PRN SOB/wheezing - Would likely benefit from maintenance inhaler regimen - consider initiation of Spiriva vs. deferring to PCP CHF (congestive heart failure): - HFrEF, EF 25% on echo from 07/2021 - -Holding CHI, spironolactone, furosemide -- monitor fluid status CAD (coronary artery disease): - s/p CABG by Dr. Marvin in 04/2020 - continue home dose statin - hold CHI in setting of DAMON - not on ASA due to thrombocytopenia - heart healthy diet Thrush: - appreciated on exam - risk factor is chemotherapy - oral nystatin swish and swallow Poor appetite: - chronic - albumin low at 3.2 - nutrition consulted - patient says food tastes bad - could be secondary to chemo regimen and/or thrush Type II diabetes mellitus: - A1c 6.9% in 07/2021 - SSI + basal bolus insulin while hospitalized - continue home regimen at discharge - carb consistent diet Atrial fibrillation: - history of paroxysmal Afib - EKG showing NSR on admission - continue amiodarone for rhythm control - not on a rate control agent - not on anticoagulation due to thrombocytopenia despite chads-vasc score of 5 Depression: - continue home dose Lexapro and Remeron Hypothyroidism: - continue home dose Synthroid Basal cell carcinoma: - patient will use his own Erivedge Diet: Low K, heart healthy, carb consistent Dispo: Med/surg. PT/OT ordered Dvt ppx: SCD, encourage ambulation Code: Full (2) CLL (chronic lymphocytic leukemia): (3) Acute on chronic anemia: (4) COPD (chronic obstructive pulmonary disease): (5) CHF (congestive heart failure): (6) CAD (coronary artery disease): (7) Depression: (8) Hyperkalemia: (9) Thrush: (10) Thrombocytopenia: (11) Type II diabetes mellitus: (12) Atrial fibrillation: (13) Neck pain: (14) Elevated troponin: (15) DAMON (acute kidney injury): (16) Hypothyroidism: Admission and Anticipated Discharge Date Admission Date: October 11, 2021 Supervising Physician Co-Signing Physician Notes I also saw the patient with the resident physician and confirmed wyman portions of the history and physical examination. I agree with the impression and plan as noted in the resident documentation. He remains in the emergency department holding area. Overall, he feels about the same. He is somewhat discouraged/upset about remaining in the ED holding area, without any windows, but I think he understands the overall situation. EXAM 112/59, 85, 20, 37.3, 94% on room air Alert and oriented. Heart regular rate and rhythm. No murmurs appreciated Lungs with nonlabored respirations, no wheezing, rhonchi, or rales. DATA Hemoglobin 9.4, platelet count 28. Sodium 136, potassium 4.4, BUN 23, creatinine 1.17 1 of 2 blood cultures coag negative staph not lugdunensis Blood culture staph aureus PCR negative Blood culture MRSA PCR negative Weakness, suspect multifactorial, improved Anemia, acute on chronic CLL undergoing chemotherapy Thrombocytopenia Overall, he seems to be feeling better. Suspect his weakness was multifactorial, primarily acute on chronic anemia in the setting of CLL undergoing chemotherapy Suspect blood culture was contaminant; no other markers of infection, so we will discontinue antibiotics Continue to monitor platelet count; consider transfusion if platelets drop under 20,000; hopefully he has reached his bassam. PT/OT consults I think he stabilized enough that we can change his admission orders from [facility] to general medical floor; this may facilitate his transfer out of the emergency department holding area. Else per resident documentation Subjective Seen at bedside this morning. Patient does not report any discomfort or pain. No CP, palp, SOB, dizziness, abd pain. Review of Systems Review of Systems: per HPI Physical Exam Physical Exam: GENERAL: A&Ox3. NAD. Frail. CHEST/LUNGS: CTAB A/P. No crackles, wheezes, rales, rhonchi. HEART: RRR. No m/g/r. No carotid bruits. ABDOMEN: NT/ND, soft. BS+ x4 EXTREMITIES: No cyanosis, no clubbing, no edema PSYCHIATRIC: Euthymic affect, no SI, no pressured speech, no hallucinations Results & Data Results & Data ([facility]) Vital Signs (Past 12 Hours) Vital Signs Temp Pulse Resp BP Pulse Ox Pulse Ox 10/13/21 04:00 36.5 C 90 24 121/70 97 97 10/12/21 23:52 36.8 C 80 24 117/62 98 10/12/21 20:00 36.5 C 78 23 116/66 95 Resident Activity Tracking Resident Involvement: Resident Care Provided Care Provided: Adult Hospital Medicine
[2021-10-13] MEDS: INSULIN ASPART PER UNIT SC SCH ×4 (07:59→22:30)
[2021-10-13] MEDS ORDERED: DAPTOmycin 375 MG in SYRINGE 0 ML IV SCH (09:00)
[2021-10-13] MEDS: NYSTATIN 500,000 UNIT TAB PO SCH ×4 (09:01→22:27)
[2021-10-13] MEDS: ESCITALOPRAM OXALATE 20 MG TAB PO SCH (09:01)
[2021-10-13] MEDS: AMIODARONE 200 MG TAB PO SCH ×2 (09:02→22:26)
[2021-10-13] MEDS: INSULIN GLARGINE SOLOSTAR 100 UNITS/ML 3 ML PEN SC SCH ×2 (09:05→23:15)
[2021-10-13] MEDS: DAPTOmycin 375 MG in SYRINGE 0 ML IV SCH (16:15)
[2021-10-13] MEDS: ATORVASTATIN 40 MG TAB PO SCH (22:27)
[2021-10-13] MEDS: rOPINIRole HCL 1 MG TABLET PO SCH (22:27)
[2021-10-13] MEDS: MIRTAZAPINE SOLTAB 15 MG PO SCH (22:27)
[2021-10-14] MEDS: LEVOTHYROXINE SODIUM 75 MCG TABLET PO SCH (05:47)
[2021-10-14 07:33] LABS: BUN Creatinine Ratio 19.8 (10-20); Calcium 9.1 mg/dl (8.5-10.1); Creatinine Clr Calc Pharmacy 43.4 ml/min; Est GFR (African American) 62.4 ml/min; Est GFR (Non-African American) 53.9 ml/min; Potassium 4.2 mmol/L (3.5-5.1)
[2021-10-14 07:37] LABS: Anisocytosis Present; Hematocrit (blood only) 27.3 % (42-52); Hemoglobin 8.8 g/dL (14.0-18.0); Hypogranular Neutrophils 1+; Mean Corpuscular Hemoglobin 29.8 pg (25-34); Mean Corpuscular Hgb Conc 32.2 g/dL (32-36); Mean Corpuscular Volume 92.5 fL (80-100); Ovalocytes 1+; Platelet Count 22 K/uL (130-400); Platelet Estimate SIGNIFIC DECREASED (Normal); RDW Coefficient of Variation 20.9 % (11.5-14.5); RDW Standard Deviation 68.6 fL (36.4-46.3); Red Blood Count 2.95 M/uL (4.7-6.1); White Blood Count 13.45 K/uL (4.8-10.8)
[2021-10-14 07:40] LABS: ANC (manual) 11.03 K/uL (1.4-6.5); Metamyelocytes # (manual) 0.27 K/uL (0-0); Monocytes # (manual) 1.35 K/uL (0.11-0.59); Neutrophils # (manual) 11.03 K/uL (1.4-6.5)
--- NOTE | 2021-10-14 08:15 | Hospitalist Progress Note ---
Date of Service October 14, 2021 Assessment & Plan (1) Weakness: Plan: Mr. Louis is a 76 yo gentleman currently undergoing chemotherapy for CLL who presented for 2 weeks of progressive weakness. Acute on chronic anemia - Hgb at 8.3 on admission -- around baseline - 10/11: Hgb at 6.4. Transfused 2U PRBCs. - Remains stable - transfuse if < 7 - trend CBC Weakness - Likely multifactorial with multiple chronic issues and his presenting anemia -- at this point less likely infection with blood cultures more likely a contaminant - WBC normal. COVID/Flu/RSV neg. CXR clear. UA negative. Procal negative. - Blood culture growing coag negative staph not lugdunensis in 1/2 bottles -- PCR neg for MRSA or staph aureus - Antibiotics discontinued 10/13 - Echo 10/12: LV function severely reduced (EF 20 to 25%), moderate LV dilation, severe left atrium dilation, mild aortic valve sclerosis, no significant aortic stenosis, moderate to severe mitral regurg, elevated RV systolic pressure at 40 to 50 mmHg - No mention of valvular vegetation, but could consider SHARIF for definitive rule-out -- will await further results of blood cultures for now - PT/OT evaluated -- rec for Return home with daughter for assistance and possibly home health; case management following Thrombocytopenia: - Platelets trending down during admission - will monitor and consider plt transfusion if needed -- if count stabilizes can likely DC and f/u with heme/onc - likely secondary to marrow suppression from CLL progression in the setting of discontinued treatment - will hold off on chemo DVT ppx, can reconsider based on subsequent CBCs DAMNO (acute kidney injury) -- suspect pre-renal etiology given history of reduce PO intake, - Resolved - baseline Cr at 0.99 - Cr at 2.37 on admission, BUN at 63, ratio of 26 - Cr now normalized - IVF DC'd - trend BMP Hyperkalemia -- resolved - K 5.5 on admission - Holding CHI and spironolactone -- remains normotensive - Normalized on last two checks - Monitor BMP High serum lactate - resolved - lactate level 3.0 on admission - improved to 1.1 with IV hydration CLL (chronic lymphocytic leukemia): - currently undergoing chemo with Dr. Hernandez in [place] - neutrophil count normal on admission Elevated troponin: - trop detectable on several checks but not elevated, eventually downtrending - EKG without signs of ST segment changes Neck pain: - C-spine xrays show no acute abnormality. Degenerative disc and degenerative joint disease. - Tylenol prn for pain COPD (chronic obstructive pulmonary disease): - 120 pack year smoking history (quit 12 years ago) - Unknown GOLD class or previous PFTs, not on home O2 therapy. - Albuterol inhaler PRN SOB/wheezing - Would likely benefit from maintenance inhaler regimen - consider initiation of Spiriva vs. deferring to PCP CHF (congestive heart failure): - HFrEF, EF 25% on echo from 07/2021 - -Holding CHI, spironolactone, furosemide -- monitor fluid status CAD (coronary artery disease): - s/p CABG by Dr. Marvin in 04/2020 - continue home dose statin - hold CHI in setting of DAMON - not on ASA due to thrombocytopenia - heart healthy diet Thrush: - oral nystatin swish and swallow Poor appetite: - chronic - albumin low at 3.2 - nutrition consulted - patient says food tastes bad - could be secondary to chemo regimen and/or thrush Type II diabetes mellitus: - A1c 6.9% in 07/2021 - SSI + basal bolus insulin while hospitalized - continue home regimen at discharge - carb consistent diet Atrial fibrillation: - history of paroxysmal Afib - EKG showing NSR on admission - continue amiodarone for rhythm control - not on a rate control agent - not on anticoagulation due to thrombocytopenia despite chads-vasc score of 5 Depression: - continue home dose Lexapro and Remeron Hypothyroidism: - continue home dose Synthroid Basal cell carcinoma: - patient will use his own Erivedge Diet: Low K, carb consistent Dispo: Med/surg. PT/OT ordered Dvt ppx: SCD, encourage ambulation Code: Full (2) CLL (chronic lymphocytic leukemia): (3) Acute on chronic anemia: (4) COPD (chronic obstructive pulmonary disease): (5) CHF (congestive heart failure): (6) CAD (coronary artery disease): (7) Depression: (8) Hyperkalemia: (9) Thrush: (10) Thrombocytopenia: (11) Type II diabetes mellitus: (12) Atrial fibrillation: (13) Neck pain: (14) Elevated troponin: (15) DAMON (acute kidney injury): (16) Hypothyroidism: Admission and Anticipated Discharge Date Admission Date: October 11, 2021 Supervising Physician Co-Signing Physician Notes I also saw the patient with the resident physician and confirmed wyman portions of the history and physical examination. I agree with the impression and plan as noted in the resident documentation. He is very tired today. He is sleeping but does awaken to her voice. Really not that hungry. Has no specific complaints other than feeling tired and weak. EXAM 94/56, 74, 16, 36.3, 92% on room air Alert and oriented. Heart regular rate and rhythm. No murmurs appreciated Lungs with nonlabored respirations, no wheezing, rhonchi, or rales. DATA wBC 13.45, hemoglobin 8.8, platelet count 22 1 of 2 blood cultures coag negative staph not lugdunensis Blood culture staph aureus PCR negative Blood culture MRSA PCR negative Weakness, suspect multifactorial, improved Anemia, acute on chronic CLL undergoing chemotherapy Thrombocytopenia Suspect his weakness was multifactorial, primarily acute on chronic anemia in the setting of CLL undergoing chemotherapy Suspect blood culture was contaminant; no other markers of infection , although do noTE bump in WBC today. Continue to monitor Continue to monitor platelet count; consider transfusion if platelets drop under 20,000; hopefully he has reached his bassam. PT/OT consults We will attempt to obtain collateral formation from his outpatient spanish teacher/oncologist, who is from outside of this area. Else per resident documentation Subjective Seen at bedside. Sleeping comfortably and eventually awakens on his own. Says he feels better today now that he got some sleep and has a view outside through his window. Denies any other issues at current. Confirms that he has not gotten chemotherapy for several months even before his last admission. Review of Systems Review of Systems: per HPI Physical Exam Physical Exam: GENERAL: A&Ox3. NAD. Frail. CHEST/LUNGS: CTAB A/P. No crackles, wheezes, rales, rhonchi. HEART: RRR. No m/g/r. No carotid bruits. ABDOMEN: NT/ND, soft. BS+ x4 EXTREMITIES: No cyanosis, no clubbing, no edema Results & Data Results & Data ([facility]) Vital Signs (Past 12 Hours) Vital Signs Temp Pulse Pulse Resp BP Pulse Ox 10/14/21 07:12 37.3 C 84 14 97/57 L 92 10/14/21 05:27 92 10/14/21 05:20 37.0 C 107 H 25 H 101/56 L 87 L 10/14/21 03:28 36.9 C 93 H 26 H 120/81 96 10/14/21 00:00 36.7 C 91 H 23 107/61 91 Resident Activity Tracking Resident Involvement: Resident Care Provided Care Provided: Adult [facility] Medicine
[2021-10-14] MEDS: INSULIN ASPART PER UNIT SC SCH ×4 (08:47→19:49)
[2021-10-14] MEDS: INSULIN GLARGINE SOLOSTAR 100 UNITS/ML 3 ML PEN SC SCH ×2 (08:52→19:49)
[2021-10-14] MEDS: ESCITALOPRAM OXALATE 20 MG TAB PO SCH (08:54)
[2021-10-14] MEDS: NYSTATIN 500,000 UNIT TAB PO SCH ×4 (08:54→20:27)
[2021-10-14] MEDS: AMIODARONE 200 MG TAB PO SCH (09:02)
--- NOTE | 2021-10-14 18:48 | Communication Note ---
Date of Service: October 14, 2021 Was asked by RN to communicate with patient's daughter as she wanted to have a goals of care discussion. Called patient's daughter and she reported that her father had not been eating at all and mentioned that he just was not interested. He also mentioned that he was ready to let nature take its course and he was not interested in any further treatments. The daughter expressed that she would would like me to communicate with her father regarding his and she would be okay with any decision that he may take. Went to patient's room and discussed his wishes. Patient expressed that he would not like to continue with life-prolonging treatment and would rather go to a more comfort based approach. He confirmed that he would like to be DNR/DNI a nd would be open to discussing options for possible hospice in his home. I discussed with him that I believed he was likely stable enough to return home soon in the setting of wanting a more comfort based approach. We will plan to communicate with case management tomorrow and send referrals for possible hospice at home. Attempted to update daughter after my conversation with Mr. Louis but was unable to reach her by phone. Will reattempt tomorrow.
[2021-10-14] MEDS ORDERED: ONDANSETRON INJ 2 MG/ML 2 ML VIAL IV PRN (18:55)
[2021-10-14] MEDS ORDERED: ONDANSETRON 4 MG OD TAB SL PRN (18:55)
[2021-10-14] MEDS ORDERED: MoRPHine SULFATE 5 MG/0.25 ML UDP PO PRN (18:55)
[2021-10-14] MEDS ORDERED: LORazepam 0.5 MG/1 ML VIAL IV PRN (18:55)
[2021-10-14] MEDS ORDERED: LORazepam 0.5 MG TAB PO PRN (18:55)
[2021-10-14] MEDS ORDERED: ACETAMINOPHEN 325 MG TAB PO PRN (18:55)
[2021-10-14] MEDS: rOPINIRole HCL 1 MG TABLET PO SCH (20:27)
[2021-10-14] MEDS: MIRTAZAPINE SOLTAB 15 MG PO SCH (20:27)
[2021-10-15] MEDS: LEVOTHYROXINE SODIUM 75 MCG TABLET PO SCH (05:35)
--- NOTE | 2021-10-15 07:28 | Hospitalist Progress Note ---
Date of Service October 15, 2021 Assessment & Plan (1) Weakness: Plan: Mr. Louis is a 76 yo gentleman currently undergoing chemotherapy for CLL who presented for 2 weeks of progressive weakness. Acute on chronic anemia - Hgb at 8.3 on admission -- around baseline - 10/11: Hgb at 6.4. Transfused 2U PRBCs. - Remains stable - transfuse if < 7 - trend CBC Weakness - Likely multifactorial with multiple chronic issues and his presenting anemia -- at this point less likely infection with blood cultures more likely a contaminant - WBC normal. COVID/Flu/RSV neg. CXR clear. UA negative. Procal negative. - Blood culture growing coag negative staph not lugdunensis in 1/2 bottles -- PCR neg for MRSA or staph aureus - Antibiotics discontinued 10/13 - Echo 10/12: LV function severely reduced (EF 20 to 25%), moderate LV dilation, severe left atrium dilation, mild aortic valve sclerosis, no significant aortic stenosis, moderate to severe mitral regurg, elevated RV systolic pressure at 40 to 50 mmHg - No mention of valvular vegetation, but could consider SHARIF for definitive rule-out -- will await further results of blood cultures for now - PT/OT evaluated -- rec for Return home with daughter for assistance and possibly home health; case management following Thrombocytopenia: - Platelets trending down during admission - will monitor and consider plt transfusion if needed -- if count stabilizes can likely DC and f/u with heme/onc - likely secondary to marrow suppression from CLL progression in the setting of discontinued treatment - will hold off on chemo DVT ppx, can reconsider based on subsequent CBCs DAMON (acute kidney injury) -- suspect pre-renal etiology given history of reduce PO intake, - Resolved - baseline Cr at 0.99 - Cr at 2.37 on admission, BUN at 63, ratio of 26 - Cr now normalized - IVF DC'd - trend BMP Hyperkalemia -- resolved - K 5.5 on admission - Holding CHI and spironolactone -- remains normotensive - Normalized on last two checks - Monitor BMP High serum lactate - resolved - lactate level 3.0 on admission - improved to 1.1 with IV hydration CLL (chronic lymphocytic leukemia): - currently undergoing chemo with Dr. Hernandez in [place] - neutrophil count normal on admission Elevated troponin: - trop detectable on several checks but not elevated, eventually downtrending - EKG without signs of ST segment changes Neck pain: - C-spine xrays show no acute abnormality. Degenerative disc and degenerative joint disease. - Tylenol prn for pain COPD (chronic obstructive pulmonary disease): - 120 pack year smoking history (quit 12 years ago) - Unknown GOLD class or previous PFTs, not on home O2 therapy. - Albuterol inhaler PRN SOB/wheezing - Would likely benefit from maintenance inhaler regimen - consider initiation of Spiriva vs. deferring to PCP CHF (congestive heart failure): - HFrEF, EF 25% on echo from 07/2021 - -Holding CHI, spironolactone, furosemide -- monitor fluid status CAD (coronary artery disease): - s/p CABG by Dr. Marvin in 04/2020 - continue home dose statin - hold CHI in setting of DAMON - not on ASA due to thrombocytopenia - heart healthy diet Thrush: - oral nystatin swish and swallow Poor appetite: - chronic - albumin low at 3.2 - nutrition consulted - patient says food tastes bad - could be secondary to chemo regimen and/or thrush Type II diabetes mellitus: - A1c 6.9% in 07/2021 - SSI + basal bolus insulin while hospitalized - continue home regimen at discharge - carb consistent diet Atrial fibrillation: - history of paroxysmal Afib - EKG showing NSR on admission - continue amiodarone for rhythm control - not on a rate control agent - not on anticoagulation due to thrombocytopenia despite chads-vasc score of 5 Depression: - continue home dose Lexapro and Remeron Hypothyroidism: - continue home dose Synthroid Basal cell carcinoma: - patient will use his own Erivedge Diet: Low K, carb consistent Dispo: Med/surg. PT/OT ordered Dvt ppx: SCD, encourage ambulation Code: Full (2) CLL (chronic lymphocytic leukemia): (3) Acute on chronic anemia: (4) COPD (chronic obstructive pulmonary disease): (5) CHF (congestive heart failure): (6) CAD (coronary artery disease): (7) Depression: (8) Hyperkalemia: (9) Thrush: (10) Thrombocytopenia: (11) Type II diabetes mellitus: (12) Atrial fibrillation: (13) Neck pain: (14) Elevated troponin: (15) DAMON (acute kidney injury): (16) Hypothyroidism: Admission and Anticipated Discharge Date Admission Date: October 11, 2021 Review of Systems Review of Systems: per HPI Physical Exam Physical Exam: GENERAL: A&Ox3. NAD. Frail. CHEST/LUNGS: CTAB A/P. No crackles, wheezes, rales, rhonchi. HEART: RRR. No m/g/r. No carotid bruits. ABDOMEN: NT/ND, soft. BS+ x4 EXTREMITIES: No cyanosis, no clubbing, no edema
[2021-10-15] MEDS: NYSTATIN 500,000 UNIT TAB PO SCH ×2 (08:45→13:03)
[2021-10-15] MEDS: ESCITALOPRAM OXALATE 20 MG TAB PO SCH (08:45)
[2021-10-15] MEDS ORDERED: ERIVEDGE 150 MG PO SCH (09:00)
--- NOTE | 2021-10-15 14:41 | Discharge Summary ---
Date of Service October 15, 2021 Admission HPI Per Admitting Provider Mr. Louis is a 76 yo gentleman with a PMHx of CLL on chemotherapy (last dose was several weeks ago), who came in for evaluation of 2 weeks of progressive weakness. He also reports poor appetite - although this has been chronic since his in 06/2021. He says his appetite is weak because food tastes bland to him. He denies any fever/chills, sore throat, painful swallowing, congestion, nausea/vomiting, diarrhea, or urinary symptoms. He does state his neck hurts - this first started after falling out of bed one week ago. In the ED, he was afebrile with a normal HR. His BP was 97/53. He was breathing well on room air. His WBC was normal, as was his neutrophil count. His Hgb was 8.3. Platelets at 55k/uL. INR 1.2. Na 132. K at 5.5. Cr at 2.37, BUN at 61. Lactate at 3.0. Trop at 0.025. AST at 48, ALT normal. COVID 19 neg, Flu neg, RSV neg. UA ordered. Blood cultures pending. CXR showing no acute process. EKG showing NSR - no prominent T waves, QRS was wide. He was give 1 liter of NSS. Principal Diagnosis Weakness, deconditioning Discharge Exam GENERAL: A&Ox3. NAD. Frail. CHEST/LUNGS: CTAB A/P. No crackles, wheezes, rales, rhonchi. HEART: RRR. No m/g/r. No carotid bruits. ABDOMEN: NT/ND, soft. BS+ x4 EXTREMITIES: No cyanosis, no clubbing, no edema Discharge Data Allergies Allergy/AdvReac Type Severity Reaction Status Date / Time No Known Allergies Allergy Verified 10/10/21 22:01 Consultations 10/11/21 00:07 ED Decision to Admit Stat Hospital Course (1) Weakness: Mr. Louis is a 76 yo gentleman currently undergoing chemotherapy for CLL who presented for 2 weeks of progressive weakness. Goals of care - Per conversation with patient, he is now interested in moving to a comfort- focused approach - He specifically requests no further treatments for his chronic issues and would just like to avoid pain/discomfort - Code status of the patient changed accordingly to DNR/DNI per discussion with him - Will discharge with updated med list keeping only medications that will have a bearing on maintaining his comfort - Patient was agreeable to discharge with home hospice -- CM assisted in setting up home hospice starting 10/17/2021 Acute on chronic anemia - Hgb at 8.3 on admission -- around baseline - 10/11: Hgb at 6.4. Transfused 2U PRBCs. - Remained stable Weakness - Likely multifactorial with multiple chronic issues and his presenting anemia -- at this point less likely infection with blood cultures more likely a contaminant - WBC normal. COVID/Flu/RSV neg. CXR clear. UA negative. Procal negative. - Blood culture growing coag negative staph not lugdunensis in 1/2 bottles -- PCR neg for MRSA or staph aureus - Antibiotics discontinued 10/13 - Echo 10/12: LV function severely reduced (EF 20 to 25%), moderate LV dilation, severe left atrium dilation, mild aortic valve sclerosis, no significant aortic stenosis, moderate to severe mitral regurg, elevated RV systolic pressure at 40 to 50 mmHg - No mention of valvular vegetation, but could consider SHARIF for definitive rule-out -- will await further results of blood cultures for now - PT/OT evaluated -- rec for Return home with daughter for assistance and possibly home health; case management following Thrombocytopenia: - Platelets trending down during admission - Stabilized in low 20s DAMON (acute kidney injury) -- suspect pre-renal etiology given history of reduce PO intake, - Resolved - baseline Cr at 0.99 - Cr at 2.37 on admission, BUN at 63, ratio of 26 - Cr now normalized - IVF DC'd Hyperkalemia -- resolved - K 5.5 on admission - Holding CHI and spironolactone -- remains normotensive - Normalized on last two checks High serum lactate - resolved - lactate level 3.0 on admission - improved to 1.1 with IV hydration CLL (chronic lymphocytic leukemia): - follows with Dr. Hernandez in [place] - neutrophil count normal on admission Elevated troponin: - trop detectable on several checks but not elevated, eventually downtrending - EKG without signs of ST segment changes Neck pain: - C-spine xrays show no acute abnormality. Degenerative disc and degenerative joint disease. - Tylenol prn for pain COPD (chronic obstructive pulmonary disease): - 120 pack year smoking history (quit 12 years ago) - Unknown GOLD class or previous PFTs, not on home O2 therapy. - Albuterol inhaler PRN SOB/wheezing - Would likely benefit from maintenance inhaler regimen - consider initiation of Spiriva vs. deferring to PCP - Less likely beneficial now with comfort/hospice goals CHF (congestive heart failure): - HFrEF, EF 25% on echo from 07/2021 CAD (coronary artery disease): - s/p CABG by Dr. Marvin in 04/2020 - continue home dose statin -- stop at DC - held CHI in setting of DAMON - not on ASA due to thrombocytopenia - heart healthy diet Thrush: - oral nystatin swish and swallow while admitted Poor appetite: - chronic - albumin low at 3.2 - nutrition consulted - patient says food tastes bad - could be secondary to chemo regimen and/or thrush Type II diabetes mellitus: - A1c 6.9% in 07/2021 - SSI + basal bolus insulin while hospitalized - Likely stop home regimen at DC as he moves to hospice at home - carb consistent diet Atrial fibrillation: - history of paroxysmal Afib - EKG showing NSR on admission - continue amiodarone for rhythm control Depression: - continue home dose Lexapro and Remeron Hypothyroidism: - continue home dose Synthroid Basal cell carcinoma: - Discontinue Erivedge at DC Dispo: Home with home hospice (2) CLL (chronic lymphocytic leukemia): (3) Acute on chronic anemia: (4) COPD (chronic obstructive pulmonary disease): (5) CHF (congestive heart failure): (6) CAD (coronary artery disease): (7) Depression: (8) Hyperkalemia: (9) Thrush: (10) Thrombocytopenia: (11) Type II diabetes mellitus: (12) Atrial fibrillation: (13) Neck pain: (14) Elevated troponin: (15) DAMON (acute kidney injury): (16) Hypothyroidism: Total Time Total Time Spent Total Time Spent (In Minutes): see attending attestation Discharge Plan Discharge Items Patient Disposition: Hospice - Home Reason For Visit: WEAKNESS Discharge Diagnosis: Weakness, deconditioning Activity: Per Instructions section Non-emergency contact: Primary Care Provider Call non-emergency contact if: you have any medication questions and your pain is not controlled Follow-up/Referrals: Sky Joyner [Primary Care Provider] - Diet: Regular Addtl Attending Provider Instructions: You were admitted to [facility] due to weakness. At that trime you were found to be anemic and had an acute kidney injury. You were transfused with 2 units of blood and given IV fluids to help with your kidneys. This stabilized the above issues. Your weakness was thought to be caused in part by the anemia, but more likely caused by your chronic lymphocytic leukemia. As discussed, at this point you feel like you would like to move onto a more comfort-focused approach to your health and let your chronic illness take its natural course. As such, we have set up Hospice services to come to your home and help you in that transition. This has been coordinated for you starting Sunday, October 17, 2021. Meanwhile, you will be discharged home with family as you are considered to be me medically stable. We have continued the medications on your list which we believe will help to keep you comfortable. However, we recommend you continue to work with your PCP and Hospice providers to identify which of these could be appropriate to discontinue. Please communicate with your primary care provider and your Hospice services for further care. Thank you for allowing us to participate in your care. Pending Studies at Discharge: No Stand-Alone Forms: My [facility] Medications and DC Order Prescriptions: Continued furosemide 40 mg tablet 40 mg PO DAILY RF: 0 ropinirole 1 mg tablet 1 mg PO HS RF: 0 tramadol 50 mg tablet 50 mg PO Q6 PRN (Reason: Pain) RF: 0 levothyroxine [Euthyrox] 75 mcg tablet 75 mcg PO DAILY RF: 0 escitalopram oxalate [Lexapro] 20 mg Tablet 20 mg PO DAILY RF: 0 amiodarone 200 mg tablet 200 mg PO BID RF: 0 mirtazapine 15 mg tablet,disintegrating 15 mg PO HS RF: 0 hydroxyzine HCl 10 mg tablet 10 mg PO BID PRN (Reason: Itching) RF: 0 Discontinued atorvastatin 40 mg tablet 40 mg PO HS RF: 0 spironolactone 25 mg tablet 25 mg PO DAILY RF: 0 Erivedge 150 mg capsule 150 mg PO DAILY RF: 0 Tresiba FlexTouch U-100 100 unit/mL (3 mL) insulin pen 8 unit SUBCUT HS RF: 0 lisinopril 5 mg tablet 5 mg PO DAILY RF: 0 Discharge Orders: Discharge Order (Routine); Ordered 10/15/21 Ordered By: Alexander Inman Admission Data Admit Date/Time: 10/11/21 00:02 Attending Provider: Alejandro Dinh Admit Provider: Lindsay Akhtar Primary Care Provider: Sky Joyner Other Providers: Shawn Harley ; [place],[facility] ; Shawn G[facility]mez at [place] ; [facility] ; Jacqueline Calles Other Interventions: Discharge Summary Assessment (RN) Last Done: 10/15/21 14:37 Supervising Physician Co-Signing Physician Notes Attending attestation Pt seen and examined in concert with Dr. Su. In agreement with the documented findings as noted in the resident documentation with any exceptions or additions as noted here. No acute complaints and resting comfortably in bed at present. Discussion with Case management re: home hospice and reinforced that this is the patients decision. On examination, S1/S2 nl RRR no MCG. CTAB. Abd NT/ND BS+ve acute on chronic anemia in the setting of CLL - transitioned to [facility] on home hospice. Coordination of care as noted. Else see resident documentation as noted. Total attending time spent on this case on the day of discharge - 35 minutes. Resident Activity Tracking Resident Involvement: Resident Care Provided Care Provided: Adult Hospital Medicine
== END 2021-10-15 18:13 | disposition hospice, home (50) | DRG 841 ==
LOC: ED 20:55 → SUATTDRO 10-11 00:02 → EDINP 10-11 00:02 → 3N 10-14 05:05